=== PATIENT | male | born 1945 | race Caucasian/White ===

== ENCOUNTER 2022-02-28 10:30 | Outpatient (RCR) | payer MEDICARE, BC, SELFPAY | END 2022-08-25 23:59 | disposition home or self-care (01) | PROVIDERS: Visit Provider Internal Medicine | DX: M43.16 Spondylolisthesis, lumbar region (principal); Z51.89 Encounter for other specified aftercare | CPT/HCPCS: 97110; 97162 ==

== ENCOUNTER 2022-11-30 14:33 | Outpatient (CLI) | payer MEDICARE, BC, SELFPAY | END 2022-11-30 14:34 | disposition home or self-care (01) | LOC: AMB 12-05 10:24 | PROVIDERS: Visit Provider Family Medicine | DX: S79.911A Unspecified injury of right hip, initial encounter (principal); W18.30XA Fall on same level, unspecified, initial encounter; Y92.094 Garage of other non-institutional residence as the place of occurrence of the external cause | CPT/HCPCS: A0425; A0427 ==

== ENCOUNTER 2022-11-30 20:35 | Inpatient (IN) | payer MEDICARE, BC, SELFPAY ==
[2022-11-30 01:33] VITALS: PULSE 61
[2022-11-30 20:30] VITALS: BP 112/70; PULSE 66; RESP 18; TEMP 37.9; O2SAT 92; BMI 34.0
--- NOTE | 2022-11-30 21:59 | P.IMHP_ITS ---
Hospitalist- H&P: DRAYL History of Present Illness Date Seen: 11/30/22 Chief complaint: Femur fracture Narrative: Juan Mayers is a 77 year old male with history of heart failure, CLL, esophageal cancer, atrial fibrillation, pulmonary embolism, GI bleed, splenectomy, sleep apnea, chronic back pain, chronic anticoagulation, stage 3 kidney disease, obesity who fell and injured his right hip. He presented to his local emergency department in [place] where he was diagnosed with a right intertrochanteric hip fracture. He has some impaired mobility. A year ago he was wheelchair-bound. Over the past year he has advanced from wheelchair to walking with a walker and today was walking with a cane. Transferred here because the lack of beds in that hospital. He reports no significant injuries other than his right hip fracture. He reports no recent illness. He reports his chronic medical problems are stable. Review of Systems Narrative: He reports no fever, cough, shortness of breath, chest pain, abdominal pain, nausea, vomiting, bowel or bladder problems. [facility] Medical History (Updated 11/30/22 @ 22:36 by Roberto Luque MD) Delirium ?R41.0 - Disorientation, unspecified (ICD-10) DVT (deep venous thrombosis) ?I82.409 - Acute embolism and thrombosis of unspecified deep veins of unspecified lower extremity (ICD-10) Smoking ?F17.200 - Nicotine dependence, unspecified, uncomplicated (ICD-10) Splenic vein thrombosis ?I82.890 - Acute embolism and thrombosis of other specified veins (ICD-10) Portal vein thrombosis ?I81 - Portal vein thrombosis (ICD-10) Chronic anticoagulation ?Z79.01 - [facility] (current) use of anticoagulants (ICD-10) Gout ?M10.9 - Gout, unspecified (ICD-10) Obstructive sleep apnea ?G47.33 - Obstructive sleep apnea (adult) (pediatric) (ICD-10) Peripheral neuropathy ?G62.9 - Polyneuropathy, unspecified (ICD-10) Chronic acquired lymphedema ?I89.0 - Lymphedema, not elsewhere classified (ICD-10) Right bundle branch block ?I45.10 - Unspecified right bundle-branch block (ICD-10) Pulmonary embolism ?I26.99 - Other pulmonary embolism without acute cor pulmonale (ICD-10) Interstitial lung disease ?J84.9 - Interstitial pulmonary disease, unspecified (ICD-10) History of thyroid nodule ?Z86.39 - Personal history of other endocrine, nutritional and metabolic disease (ICD-10) Impaired mobility ?Z74.09 - Other reduced mobility (ICD-10) At risk for falls ?Z91.81 - History of falling (ICD-10) Chronic low back pain ?M54.50 - Low back pain, unspecified (ICD-10) ?G89.29 - Other chronic pain (ICD-10) Gastrointestinal bleeding, upper ?K92.2 - Gastrointestinal hemorrhage, unspecified (ICD-10) Diabetes mellitus ?E11.9 - Type 2 diabetes mellitus without complications (ICD-10) Anxiety ?F41.9 - Anxiety disorder, unspecified (ICD-10) Obesity ?E66.9 - Obesity, unspecified (ICD-10) Heart failure with reduced ejection fraction ?I50.20 - Unspecified systolic (congestive) heart failure (ICD-10) Pulmonary hypertension ?I27.20 - Pulmonary hypertension, unspecified (ICD-10) Esophageal cancer ?C15.9 - Malignant neoplasm of esophagus, unspecified (ICD-10) CLL (chronic lymphocytic leukemia) ?C91.10 - Chronic lymphocytic leukemia of B-cell type not having achieved remission (ICD-10) Abdominal aortic aneurysm ?I71.40 - Abdominal aortic aneurysm, without rupture, unspecified (ICD-10) Paroxysmal atrial fibrillation ?I48.0 - Paroxysmal atrial fibrillation (ICD-10) Stage 3 chronic kidney disease ?N18.30 - Chronic kidney disease, stage 3 unspecified (ICD-10) Surgical History (Updated 11/30/22 @ 22:21 by Roberto Luque MD) History of cholecystectomy ?Z90.49 - Acquired absence of other specified parts of digestive tract (ICD- 10) History of ventral hernia repair ?Z98.890 - Other specified postprocedural states (ICD-10) ?Z87.19 - Personal history of other diseases of the digestive system (ICD-10) History of splenectomy ?Z90.81 - Acquired absence of spleen (ICD-10) History of permanent cardiac pacemaker placement ?Z95.0 - Presence of cardiac pacemaker (ICD-10) Family History (Updated 11/30/22 @ 22:23 by Roberto Luque MD) Brother Leukemia Social History (Updated 11/30/22 @ 22:25 by Roberto Luque MD) Narrative: Leonardo lives with his significant other, Freda, in their own home on [address] near [facility]. Freda is healthcare power of environmental attorney and manages hole of his medications. Son Patrice is also healthcare power of environmental attorney. Code status is DNR. I year ago he was wheelchair-bound. He has advanced walking with a walker and now walking with a cane more recently. He smokes about a pack of cigarettes per week. He drinks a half glass of wine and a beer per day. He uses home BiPAP which his has brought in for him. He plans to go to [place] for the winter. He gets his medical care through the [facility] What is your current living situation?: I presently have a place to live Problems where you live: no known problems Problems where you live details: None In the past 12 months, utilities in danger of being shut off: no In past 12 months, lack of transportation kept you from medical appts, meetings, work, or getting things needed for daily living: no In the past 12 mos, have been you worried that your food would run out before you had money to buy more?: never true In the past 12 mos, the food you bought just didn't last and you didn't have money to buy more?: never true Highest level of school completed/degree received: Bachelor's degree Smoking Status: Current every day smoker What tobacco products do you use: cigarettes Smoking quit date/years: <= 15 years ago Nicotine containing products detail: 1 pack/week How often do you have a drink containing alcohol: 4 or more times a week Alcohol type: beer and wine Alcohol type details: half a glass of wine daily, beer How many standard drinks containing alcohol do you have on a typical day: 1 or 2 How often do you have six or more drinks on one occasion: Never AUDIT-C Alcohol total score: 4 Non-prescribed substance use: denies use Caffeine: Yes (coffee) How often does anyone, including family, friends and others, physically hurt you : never How often does anyone, including family, friends and others, insult or talk down to you: never How often does anyone, including family, friends and others, threaten you with harm: never How often does anyone, including family, friends and others, scream or curse at you: never service: No Meds Home Medications and Allergies Home Medications Medication Instructions Recorded Confirmed Type allopurinol 100 mg tablet 300 mg PO DAILY 11/30/22 11/30/22 History apixaban 5 mg tablet (Eliquis) 5 mg PO BID 11/30/22 11/30/22 History baclofen 20 mg tablet 20 mg PO 3XD PRN 11/30/22 11/30/22 History empagliflozin 10 mg tablet 10 mg PO QAM 11/30/22 11/30/22 History (Jardiance) esomeprazole magnesium 40 mg 40 mg PO BID 11/30/22 11/30/22 History capsule,delayed release famotidine 40 mg tablet 40 mg PO QPM 11/30/22 11/30/22 History fluticasone propionate 50 2 spray intranasal DAILY 11/30/22 11/30/22 History mcg/actuation nasal spray,suspension gabapentin 300 mg capsule 600 mg PO 3XD 11/30/22 11/30/22 History lorazepam 0.5 mg tablet 0.5 mg PO BID PRN anxiety 11/30/22 11/30/22 History metolazone 10 mg tablet 5 mg PO DAILY 11/30/22 11/30/22 History nystatin 100,000 unit/gram topical 1 applic topical 3XD PRN 11/30/22 11/30/22 History powder (Nyamyc) potassium chloride 40 mEq/15 mL 50.1333 meq PO QID 11/30/22 11/30/22 History oral liquid sertraline 100 mg tablet 150 mg PO DAILY 11/30/22 11/30/22 History spironolactone 25 mg tablet 37.5 mg PO BID 11/30/22 11/30/22 History torsemide 20 mg tablet 60 mg PO 3XD 11/30/22 11/30/22 History trazodone 50 mg tablet 100 mg PO QPM 11/30/22 11/30/22 History Allergies Allergy/AdvReac Type Severity Reaction Status Date / Time No Known Drug Allergies Allergy Verified 11/30/22 21:59 Exam Narrative: Exam Narrative: He is alert and appears in no distress. He gives his own history. Eyes are normal. Oropharynx normal. Neck is supple without mass or adenopathy. No jugular venous distension. No stridor. Respirations are clear to auscultation. Breathing is unlabored. Cardiovascular: S1, S2, relatively regular rhythm. Distant heart sounds. No obvious murmur gallop or rub. Abdomen: Bowel sounds are active. Abdomen is soft without tenderness. He has a vertical midline incision which appears to have a incisional hernia. He has a horizontal low abdominal incision which is also well healed and appears to have small bumps which the patient tells me are antibiotic beads implanted there. External genitalia normal. Jin catheter in place draining a clear yellow urine. Upper extremities move normally. Lower extremities with moderate edema bilaterally. He has moderate swelling around his right hip. He has intact pedal pulses. Assessment and Plan Assessment and plan (1) Intertrochanteric fracture of right femur: Problem comment: Pending surgical consultation. Patient's last dose of apixaban was the morning of November 30. Status: Acute (2) Heart failure with reduced ejection fraction: Problem comment: History of systolic failure. Echocardiogram from 09/14/2022, [place], shows ejection fraction of 56%, right-sided heart pressure of 38 mmHg, severely enlarged left atrium, mild aortic regurgitation and no other significant valvular disease. Continue high dose of diuretics and monitor closely. Status: Acute (3) Obesity: Problem comment: Significant weight loss from previous BMI of greater than 40. Status: Acute (4) Gastrointestinal bleeding, upper: Problem comment: History of GI bleeding about December 2020. Had normal colonoscopy. Diagnosed with esophageal cancer. Briefly off warfarin and developed a PE. Restarted apixaban Status: Acute (5) Pulmonary embolism: Problem comment: Developed pulmonary embolism and DVT when he was taken off warfarin for a GI bleed about December 2020. Lifelong anticoagulation recommended. Consider prophylactic Lovenox as bridge to surgery, 30 mg subQ q.12 hours and hold 24 hours before surgery. Status: Acute (6) Impaired mobility: Problem comment: Was wheelchair-bound in 2021, and over the past 10 months has advanced to walking with a walker and now with a cane. Status: Acute (7) Chronic acquired lymphedema: Problem comment: Support hose and pneumatic compression Status: Acute (8) Obstructive sleep apnea: Problem comment: Continue home BiPAP Status: Acute (9) Chronic anticoagulation: Problem comment: For atrial fibrillation and history of pulmonary embolism and DVT. Stop apixaban. Consider enoxaparin 30 mg subcutaneously q.12 hours as a bridge to surgery. Hold for 24 hours before surgery. Status: Acute (10) CLL (chronic lymphocytic leukemia): Problem comment: Not receiving treatment Status: Acute (11) Paroxysmal atrial fibrillation: Problem comment: On anticoagulation with apixaban Status: Acute (12) Stage 3 chronic kidney disease: Status: Acute (13) At risk for falls: Status: Acute (14) Chronic low back pain: Problem comment: He is treated with nerve ablation treatments periodically. Also baclofen Status: Acute (15) Delirium: Problem comment: Patient reports acute confusion associated with oxycodone. Possibly represents underlying cognitive impairment plus acute illness plus opioid effect. Status: Acute Plan Patient is admitted to the hospital for perioperative management of multiple medical problems outlined above. Total time spent today is 90 minutes, 60 minutes in coordination of care and discussing with patient and other providers ongoing evaluation management of anticoagulation, bleeding and clotting, heart failure, pain
[2022-11-30] MEDS: SENNOSIDES/DOCUSATE TABLET PO (22:36)
[2022-11-30] MEDS: TORSEMIDE 20 MG TABLET 60 MG PO (22:36)
[2022-11-30] MEDS: LORazepam 0.5 MG TABLET PO (22:37)
[2022-11-30] MEDS: TRAZODONE HCL 50 MG TABLET 100 MG PO (22:37)
[2022-11-30] MEDS: BACLOFEN 10 MG TABLET 20 MG PO (22:38)
[2022-11-30] MEDS: ONDANSETRON 2 MG/ML inj 4 MG IVP (22:39)
[2022-11-30] MEDS: HYDROmorphone 0.5 mg/0.5 ml inj IVP (22:49)
--- NOTE | 2022-11-30 22:55 | CRLHL7_ITS ---
For Patients: As a result of the Cures Act, medical imaging exams and procedure reports are released immediately into your electronic medical record. You may view this report before your referring provider. If you have questions, please contact your health care provider. Indication: Preop hip fracture, heart failure Technique: Chest 1 view Comparison: None Findings/Impression: Normal cardiac size. Masslike density in the right infrahilar region. Recommend chest CT for further evaluation. Normal pulmonary vasculature. No effusion or pneumothorax. No acute osseous abnormality. Dictated by Clare Millard MD @ 12/01/2022 12:47:08 AM (Electronically Signed)
[2022-11-30 23:00] VITALS: BP 101/67; PULSE 66; RESP 18; TEMP 37.1; O2SAT 89
[2022-11-30 23:48] LABS: Appearance Urine Clear (Clear); Bilirubin Urine Negative (Negative); Blood Urine 2+ (Negative); Color Urine Yellow (Yellow); Glucose Urine 1+ (Negative); Ketones Urine Negative (Negative); Leukocyte Esterase Urine Trace (Negative); Nitrite Urine Negative (Negative); Protein Urine Negative (Negative); Specific Gravity Urine 1.015 (1.000-1.030); Urobilinogen Urine 0.2 (0.2-1.0)
[2022-11-30] MEDS: GABAPENTIN 300 MG CAPSULE 600 MG PO (23:51)
[2022-12-01] VITALS (8 sets, daily range): BP systolic 92–111; BP diastolic 59–68; PULSE 61–76; RESP 12–18; TEMP 36.4–36.8; O2SAT 88–92
[2022-12-01 00:30] LABS: Bacteria Urine Few; Squamous Epithelial Cell Urine Few (None-Few); WBC Urine 0-2 (0-5)
[2022-12-01] MEDS: cefTRIAXone 1 GM in 0.9 % SODIUM CHLORIDE Mini-bag 100 ML IVPB (01:13)
[2022-12-01] MEDS: HYDROmorphone 2 MG TABLET PO ×6 (01:14→16:33)
[2022-12-01] MEDS: DOXYCYCLINE HYCLATE 100 MG PO ×3 (01:14→21:28)
[2022-12-01] MEDS: 0.9 % SODIUM CHLORIDE 250 ml IV (01:17)
[2022-12-01 01:59] LABS: Basophils Percent Auto 0.1 % (0.0-3.0); Hematocrit 49.7 % (37.0-53.0); Hemoglobin* 15.6 gm/dL (13.5-17.5); Immature Granulocytes Pct Auto 0.2 %; Lymphocytes Percent Auto 84.3 % (20-44); Mean Corpuscular HGB Conc 31 gm/dL (32-36); Mean Corpuscular Hemoglobin 35 pg (26-34); Mean Corpuscular Volume 110 fL (80-100); Monocytes Percent Auto 3.6 % (0.0-11.0); Neutrophils Percent Auto 11.8 % (42.0-72.0); Platelet Count* 174 K/uL (140-440); RDW Coefficient of Variation % 15.3 % (11.5-15.5)
[2022-12-01 02:15] LABS: Chloride* 94 mmol/L (96-114); Sodium* 137 mmol/L (135-149)
[2022-12-01 02:18] LABS: Creatinine* 1.3 mg/dL (0.5-1.5); Est. Creatinine Clearance* 52.99; Estimated Glomerular Filt Rate 56 ml/min
[2022-12-01 02:19] LABS: Anion Gap 8 mEq/L (7-15); Blood Urea Nitrogen* 60 mg/dL (7-30); Calcium* 9.5 mg/dL (8.4-10.6); Carbon Dioxide* 35 mmol/L (20-32); Glucose* 159 mg/dL (60-115); Magnesium* 2.7 mg/dL (1.5-2.6)
[2022-12-01 02:20] LABS: Hemoglobin A1C* 5.7 % (0-5.6)
[2022-12-01 02:24] LABS: White Blood Count* 70.51 K/uL (4.50-11.00)
[2022-12-01 02:25] LABS: Slide Review Reflex Yes
[2022-12-01 02:26] LABS: Slide Review Acceptable Review (Acceptable)
[2022-12-01 02:27] LABS: Potassium* 2.9 mmol/L (3.6-5.1)
[2022-12-01 02:32] LABS: Troponin I* 0.02 ng/mL (0.01-0.04)
[2022-12-01 02:35] LABS: Procalcitonin* 0.16 ng/mL (<0.50)
[2022-12-01 02:36] LABS: NT Pro B Type NatriureticPept* 925 pg/mL
[2022-12-01] MEDS: POTASSIUM CHLORIDE 10 MEQ/100 ML PIGGYBACK 100 MEQ IVPB ×4 (04:13→09:22)
--- NOTE | 2022-12-01 05:33 | PC.NURSE ---
Pt slept on and off during night, easily awoken when nurse walks in to check on pt. pain controlled with prn pain medication, constantly rates pain 8/10, he appears comfortable. requires 2 lpm O2 to maintain sats around 90%. Ice to R hip, pedal pulses present bilaterally. repositioned patient slightly as tolerated due to severe increased pain with movement. gee patent and draining. pt denies chest pain, sob, headache, lightheaded or dizziness. No N/V.
[2022-12-01] MEDS: OMEPRAZOLE 20 MG CAPSULE DR 40 MG PO ×2 (06:14→16:32)
[2022-12-01] MEDS: allopurinoL 100 MG TABLET 300 MG PO (07:59)
[2022-12-01] MEDS: GABAPENTIN 300 MG CAPSULE 600 MG PO ×3 (08:00→21:28)
[2022-12-01] MEDS: polyethylene glycoL 3350 17 GM PACK PO (08:01)
[2022-12-01] MEDS: SERTRALINE 100 MG TABLET 150 MG PO (08:01)
[2022-12-01] MEDS: TORSEMIDE 20 MG TABLET 60 MG PO (08:03)
[2022-12-01] MEDS: EMPAGLIFLOZIN 10 MG TABLET PO (09:19)
[2022-12-01] MEDS: POTASSIUM BICARB 25 MEQ EFFERVESCENT TAB 50 MEQ PO ×5 (09:19→21:27)
[2022-12-01] MEDS: SENNOSIDES/DOCUSATE TABLET 2 TAB PO ×2 (09:20→21:28)
[2022-12-01] MEDS: SPIRONOLACTONE 25 MG TABLET 37.5 MG PO ×2 (09:21→21:27)
--- NOTE | 2022-12-01 09:51 | PC.NURSE ---
PAIN NOTE: PATIENT C/O 9/10 R HIP AND LOWER BACK PAIN THIS MORNING WITH PRN DILAUDID 2 MG ADMINISTERED BEFORE REPOSITIONING. PATIENT REPORTED PAIN 10/10 UPON FOLLOWUP THOUGH APPEARS TO BE TOLERATING PAIN WITH CURRENT BEDREST AND REPOSITIONING. [employer] DID OFFER ICE AND PRN TYLENOL THOUGH PATIENT DECLINED THESE INTERVENTIONS. PATIENT AWARE HE IS SCHEDULED FOR SURGERY AT 1100 TOMORROW.
--- NOTE | 2022-12-01 10:14 | PM.IMPN1 ---
Progress Note: A&P Assessment and plan (1) Intertrochanteric fracture of right femur: Problem details: - Pending surgical consultation. Patient's last dose of apixaban was the morning of November 30. - Anticipate possible orthopedic surgery as early as morning of 12/02/22. NPO after midnight per Orthopedic surgery, and other pre surgical interventions and assessments per Orthopedic surgery. Status: Acute (2) Heart failure with reduced ejection fraction: Problem details: - History of systolic failure. Echocardiogram from 09/14/2022, [place], shows ejection fraction of 56%, right-sided heart pressure of 38 mmHg, severely enlarged left atrium, mild aortic regurgitation and no other significant valvular disease. - ordinarily on high dose of diuretics and monitor closely: Torsemide 60 mg 3 times daily, spironolactone 37.5 mg 2 times daily, metolazone 5 mg once daily. - I change the torsemide 80 mg twice daily, continued with the spironolactone dose as presently on, and held the metolazone here in the hospital. - ordinarily requires high-dose potassium supplementation, normally 40 mEq 5 times daily; I have changed it to 50 mEq 4 times daily. Today I will give an extra 50 mEq dose. Status: Acute (3) Obesity: Problem details: Significant weight loss from previous BMI of greater than 40. Current BMI 33.7. Status: Acute (4) Gastrointestinal bleeding, upper: Problem details: History of GI bleeding about December 2020. Had normal colonoscopy. Diagnosed with esophageal cancer. Briefly off warfarin and developed a PE. Restarted apixaban. Status: Acute (5) Pulmonary embolism: Problem details: Developed pulmonary embolism and DVT when he was taken off warfarin for a GI bleed about December 2020. Lifelong anticoagulation recommended. Status: Acute (6) Impaired mobility: Problem details: Was wheelchair-bound in 2021, and over the past 10 months has advanced to walking with a walker and now with a cane. Status: Acute (7) Chronic acquired lymphedema: Problem details: Support hose and pneumatic compression Status: Acute (8) Obstructive sleep apnea: Problem details: Continue home BiPAP Status: Acute (9) Chronic anticoagulation: Problem details: For atrial fibrillation and history of pulmonary embolism and DVT. Stop apixaban. Anticipate surgery tomorrow morning, so will not initiate bridging enoxaparin therapy. Status: Acute (10) CLL (chronic lymphocytic leukemia): Problem details: Not receiving treatment, with total white blood cell count 70,000 on 11/30/2022. Status: Acute (11) Paroxysmal atrial fibrillation: Problem details: On anticoagulation with apixaban, last dose received was morning of 11/30/2022. On hold for surgery. Status: Acute (12) Stage 3 chronic kidney disease: Status: Acute (13) At risk for falls: Status: Acute (14) Chronic low back pain: Problem details: He is treated with nerve ablation treatments periodically. Also baclofen Status: Acute (15) Delirium: Problem details: Records indicate history of delerium. Possibly related to oxycodone with acute illness Status: Acute (16) Abnormal chest x-ray: Problem details: - 11/30/2022: Normal cardiac size. Masslike density in the right infrahilar region. Recommend chest CT for further evaluation. Normal pulmonary vasculature. No effusion or pneumothorax. No acute osseous abnormality. - Compared CXR to previous CT scan of chest 10/16/2021 with radiologist: chronic prominent pulmonary artery (mass in RLL of CXR) and chronic hilar adenopathy, R>L. No need to assess any further at this time. CXR consistent with previous CT scan of chest. Status: Acute (17) Fever: Problem details: - Tm 100.3? F 11/30/2022, afebrile since - no obvious source, aside from acute trauma, CLL - no pulmonary symptoms and retrospectively no obvious infiltrate on chest x-ray obtained on 11/30/2022 - negative urinalysis, urine culture negative to date - blood cultures negative to date - was started on empiric IV ceftriaxone and oral doxycycline after cultures obtained Status: Acute (18) Hypokalemia due to excessive renal loss of potassium: Problem details: -due to being on high-dose diuretics: Torsemide 60 mg 3 times daily, spironolactone 37.5 mg 2 times daily, metolazone 5 mg once daily - ordinarily on potassium 40 mEq 5 times daily; changed to 50 mg 4 times daily in-hospital, plus give extra dose of 50 mEq of potassium while in hospital, and additional IV potassium supplements while in hospital. - trach serum potassium level Status: Acute Plan 1. Reviewed impression with patient. Answered his questions. 2. Reviewed impression with his significant other, Freda, and answered her questions. 3. Discussed with Orthopedic surgery who indicate that they intend on bringing him back to the OR possibly as early as tomorrow. Time Spent With Patient Total time spent: 70 minutes Subjective Time Seen by Provider: 09:00 Date Seen: 12/01/22 Interval history: Hospital day 2. Feels a little better today. Not as weak. Pain sufficiently modified for now. Did not sleep much last night, mainly because of being in the hospital. Denies chest heaviness, pressure, tightness, or pain. Denies dyspnea at rest, paroxysmal nocturnal dyspnea, orthopnea. Denies cough. Denies syncope or near-syncope. Denies orthostasis, lightheadedness, vertigo. Denies palpitations or chest fluttering. No blood loss of any sort. No focal motor neurologic deficits. Notes tendency toward constipation. Exam Narrative: Exam Narrative: Appears comfortable and in no acute distress. Vision and hearing are adequate. Alert and oriented to self, place, time, situation. Friendly, articulate, cooperative. Cranial nerves 3-12 grossly normal. Moves all 4 extremities. No focal motor neurologic deficits. Neck is supple. Shotty head and neck lymphadenopathy. No JVD or hepatojugular reflux. No carotid bruits. Lungs are clear to auscultation without wheezing, rhonchi, or rales. No CVA tenderness. Heart tones with regular rhythm, normal S1-S2. Grade 2-3/6 systolic murmur loudest in right upper sternal border. Abdomen with active bowel sounds, soft, nontender. Bilateral lower extremity edema, chronic, not new. Const: Vital Signs, click to edit/add: Vital Signs - 24 hr 11/30/22 20:30 11/30/22 20:30 11/30/22 23:00 Temperature 100.3 F H Pulse Rate Pulse Rate [Pulse Oximeter] 66 66 Respiratory Rate 18 Blood Pressure [Le ft Arm] 112/70 Pulse Oximetry 92 Oxygen Delivery Me thod Nasal Cannula Nasal Cannula Oxygen Flow Rate 2 2 11/30/22 23:00 12/01/22 02:13 12/01/22 07:00 Temperature 98.8 F 98.0 F 97.6 F Pulse Rate Pulse Rate [Pulse Oximeter] 66 63 62 Respiratory Rate 18 18 18 Blood Pressure [Le ft Arm] 101/67 92/60 108/65 Pulse Oximetry 89 88 92 Oxygen Delivery Me thod CPAP CPAP CPAP Oxygen Flow Rate 2 12/01/22 07:00 12/01/22 09:33 Temperature Pulse Rate 71 Pulse Rate [Pulse Oximeter] Respiratory Rate 18 Blood Pressure [Le ft Arm] Pulse Oximetry 92 Oxygen Delivery Me thod CPAP Oxygen Flow Rate 2 Documenting provider has reviewed patient's vital signs: yes Labs Labs: Laboratory Results - last 24 hr 11/30/22 12/01/22 23:35 01:45 WBC 70.51 H* RBC 4.50 Hgb 15.6 Hct 49.7 MCV 110 H MCH 35 H MCHC 31 L RDW Coeff of [place] 15.3 Plt Count 174 Neut % (Auto) 11.8 L Lymph % (Auto) 84.3 H [place] % (Auto) 3.6 Eos % (Auto) 0.0 Baso % (Auto) 0.1 Neut # (Auto) 8.30 H Lymph # (Auto) 59.40 H [place] # (Auto) 2.50 H Eos # (Auto) 0.00 Baso # (Auto) 0.10 Abs Immat Gran (auto) 0.10 Imm/Tot Granulo (auto) 0.2 Diff Slide Review Acceptable Review Sodium 137 Potassium 2.9 L* Chloride 94 L Carbon Dioxide 35 H Anion Gap 8 BUN 60 H Creatinine 1.3 Estimated Creat Clear 52.99 Estimated GFR 56 Glucose 159 H Hemoglobin A1c 5.7 H Calcium 9.5 Magnesium 2.7 H Troponin I 0.02 NT-Pro-B Natriuret Pep 925 Procalcitonin 0.16 Urine Color Yellow Urine Appearance Clear Urine pH 7.0 Ur Specific [place] 1.015 Urine Protein Negative Urine Glucose (UA) 1+ A Urine Ketones Negative Urine Blood 2+ A Urine Nitrite Negative Urine Bilirubin Negative Urine Urobilinogen 0.2 Ur Leukocyte Esterase Trace A Urine RBC 2-5 A Urine WBC 0-2 Ur Squamous Epith Cells Few Urine Bacteria Few A
[2022-12-01] MEDS: BACLOFEN 10 MG TABLET 20 MG PO ×2 (10:26→17:24)
[2022-12-01] MEDS: SODIUM CHLORIDE 0.9 % (FLUSH) 10 ML SYRINGE 5 ML IVF ×2 (10:54→21:28)
--- NOTE | 2022-12-01 11:15 | CRLHL7_ITS ---
For Patients: As a result of the Century Cures Act, medical imaging exams and procedure reports are released immediately into your electronic medical record. You may view this report before your referring provider. If you have questions, please contact your health care provider. Indication: Hip pain Technique: Two views right femur Comparison: 11/30/2022 Findings: Right total knee arthroplasty hardware are intact. Displaced and comminuted intertrochanteric fracture of the right proximal femur again noted. Degenerative changes at the right hip joint. Multiple chronic densities superior to the patella. Impression: Comminuted and displaced intertrochanteric fracture of the right proximal femur again noted. Dictated by Anthony Donovan MD @ 12/01/2022 1:02:25 PM (Electronically Signed)
[2022-12-01] MEDS: SUCRALFATE 1 GM TABLET PO ×2 (12:43→16:33)
--- NOTE | 2022-12-01 13:19 | PC.NURSE ---
PATIENT HAS BEEN GIVEN THREE DOSES OF PRN DILAUDID THROUGHOUT THE SHIFT TODAY HE C/O 8/10 PAIN TO R HIP AND LOWER BACK WITH MOVEMENT/REPOSITIONING. LATERAL TRANSFER DEVICE LIFT SHEET HAS BEEN PUT UNDER PATIENT TO ASSIST WITH REPOSITIONING HE REMAINS ON BEDREST. HE REMAINS ON OXYGEN 2 LPM WITH O2 SAT OF 92%. PATIENT ALERT & ORIENTED X 4. LUNG SOUNDS HAVE BEEN CLEAR TO ALL LOBES BILATERALLY AND BOWEL SOUNDS ACTIVE X 4. PATIENT ABLE TO TAKE PILLS WHOLE WITH APPLESAUCE GIVEN WITH FIRST DOSE OF DILAUDID THIS AM TO PREVENT NAUSEA. PATIENT HAS REPEAT K+ DRAW SCHEDULED FOR THIS AFTERNOON AFTER RECEIVING POTASSIUM PO AND IV. SCDS AND BILATERAL FLAVIA STOCKINGS HAVE BEEN IN PLACE TO BILATERAL LOWER EXTREMITIES OTHER THAN WHEN REMOVED FOR 1 HOUR THIS MORNING. ROBLERO CATHETER REMAINS PATENT WITH PALE YELLOW URINARY OUTPUT. PATIENT WAS ABLE TO PROVIDE HIS OWN HYGIENE AND MITALI CARES AFTER SETUP ASSISTANCE. HE REFUSED TO CHANGE GOWN WHEN APPROACHED BY THIS BUSINESS OWNER/ENGINEER. CMS REMAINS INTACT TO BILATERAL LOWER EXTREMITIES. NO S/SX OF INFECTION OBSERVED AT IV INSERTION SITE TO L FOREARM. NO C/O N/V OR CP NOTED. PATIENT AND SIGNIFICANT OTHER ARE AWARE THAT HE IS SCHEDULED FOR SURGERY AT 1115 AND PATIENT IS AWARE THAT HE WILL BE NPO AFTER MIDNIGHT TONIGHT. PATIENT UPDATED THAT HE IS UNABLE TO HAVE NERVE BLOCK COMPLETED TODAY PER PA. PATIENT ABLE TO ASSIST WITH REPOSITIONING USING OVERHEAD TRAPEZE. VSS. PATIENT NOTED TO BE SLIGHTLY DIAPHORETIC THIS MORNING UPON WAKING THOUGH HE WAS AFEBRILE WITH TEMP OF 97.6 AND BLOOD GLUCOSE OF 100 WHEN ASSESSED. BLANKETS WERE THEN REMOVED TO ASSIST WITH COOLING. ICE PROVIDED TO R HIP TO ASSIST WITH PAIN CONTROL.
[2022-12-01] MEDS: TORSEMIDE 20 MG TABLET 80 MG PO (13:43)
[2022-12-01 15:33] LABS: Potassium* 3.8 mmol/L (3.6-5.1)
--- NOTE | 2022-12-01 16:56 | PC.NURSE ---
Patient continues to report pain to R hip and lower back- 3/10 at rest and 8/10 with movement. Pain continues to be treated with scheduled pain medications, rest, ice, repositioning and PRN Dilaudid. Staff continue to utilize lateral transfer device for repositioning in bed. Patient able to assist with overhead trapeze. SCDs and FLAVIA stockings remain in place to bilateral lower extremities for DVT prophylaxis- removed for 1 hour this shift per protocol. Patient's significant other has been present for most of the day today. Patient's K+ has improved to 3.8, patient updated. Lung sounds remain clear to all lobes bilaterally and bowel sounds active x 4. Jin catheter remains patent and draining good output due to patient's po fluid intake along with chronic diuretic use. Patient able to make his needs known.
[2022-12-01] MEDS: FAMOTIDINE 20 MG TABLET 40 MG PO (18:28)
--- NOTE | 2022-12-01 18:41 | PC.NURSE ---
Patient refused repositioning when approached at 1830 stating, Just let me sleep. He has been educated regarding the importance of repositioning along with risks. Costing Manager did offer PRN Lorazepam as significant other reported pt takes this medication in the evening though pt refused stating, No. I don't need that. I'm fine right now after explaining that this medication prescribed for anxiety. Patient was last repositioned at 1650. Will update oncoming RN.
[2022-12-01] MEDS: TRAZODONE HCL 50 MG TABLET 100 MG PO (21:28)
[2022-12-01] MEDS: ACETAMINOPHEN 325 MG TABLET 650 MG PO (21:28)
[2022-12-01] MEDS: FLUTICASONE PROPIONATE NASAL 2 SPRAY NOSTRIL-B (21:29)
[2022-12-01] MEDS: HYDROmorphone 0.5 mg/0.5 ml inj IVP (21:43)
[2022-12-01] MEDS: 0.9 % SODIUM CH + KCL 20 mEq/L 1,000 ML 75 ML IV (23:46)
[2022-12-02] VITALS (24 sets, daily range): BP systolic 97–114; BP diastolic 57–93; PULSE 60–86; RESP 14–18; TEMP 36.4–37.1; O2SAT 86–94
[2022-12-02] MEDS: cefTRIAXone 1 GM in 0.9 % SODIUM CHLORIDE Mini-bag 100 ML IVPB (01:13)
[2022-12-02] MEDS: LORazepam 0.5 MG TABLET PO (03:02)
--- NOTE | 2022-12-02 05:01 | PC.NURSE ---
[id number] Pt restless throughout shift. repositioned as tolerated, pt does not tolerate well due to increase in pain. tremors noted, charge nurse and md aware, no new orders given. Pt c/o hip and back pain. gee patent and draining. NPO since midnight. pedal pulses present, pt able to move R foot independently.
[2022-12-02] MEDS: HYDROmorphone 0.5 mg/0.5 ml inj IVP ×4 (05:34→23:48)
[2022-12-02 06:37] LABS: Basophils Percent Auto 0.1 % (0.0-3.0); Hematocrit 46.2 % (37.0-53.0); Hemoglobin* 14.7 gm/dL (13.5-17.5); Immature Granulocytes Pct Auto 0.4 %; Lymphocytes Percent Auto 80.7 % (20-44); Mean Corpuscular HGB Conc 32 gm/dL (32-36); Mean Corpuscular Hemoglobin 35 pg (26-34); Mean Corpuscular Volume 109 fL (80-100); Monocytes Percent Auto 4.7 % (0.0-11.0); Neutrophils Percent Auto 14.1 % (42.0-72.0); Platelet Count* 158 K/uL (140-440); Red Blood Count 4.23 m/uL (4.30-5.90)
[2022-12-02 06:38] LABS: Chloride* 91 mmol/L (96-114)
[2022-12-02 06:39] LABS: Potassium* 3.3 mmol/L (3.6-5.1); Sodium* 135 mmol/L (135-149)
[2022-12-02 06:41] LABS: Creatinine* 1.2 mg/dL (0.5-1.5); Est. Creatinine Clearance* 61.28; Estimated Glomerular Filt Rate 62 ml/min
[2022-12-02 06:42] LABS: Anion Gap 4 mEq/L (7-15); Blood Urea Nitrogen* 61 mg/dL (7-30); Calcium* 9.1 mg/dL (8.4-10.6); Carbon Dioxide* 40 mmol/L (20-32); Glucose* 149 mg/dL (60-115)
[2022-12-02 07:17] LABS: Slide Review Reflex Yes; White Blood Count* 72.93 K/uL (4.50-11.00)
[2022-12-02 07:18] LABS: Slide Review Acceptable Review (Acceptable)
[2022-12-02] MEDS: POTASSIUM CHLORIDE 10 MEQ/100 ML PIGGYBACK 100 MEQ IVPB ×4 (08:00→11:38)
[2022-12-02] MEDS: TORSEMIDE 20 MG TABLET 80 MG PO (09:07)
[2022-12-02] MEDS: SPIRONOLACTONE 25 MG TABLET 37.5 MG PO ×2 (09:09→23:39)
--- NOTE | 2022-12-02 10:05 | PC.SOCIAL ---
Discharge Planning: Met with patient and his friend, Freda in room. Freda states that she is his caregiver. They are hopeful that patient will be able to return home after surgery. Waiting to see what is recommended for patient. Social work to follow up as needed
--- NOTE | 2022-12-02 10:46 | P.IMPN_ITS ---
Progress Note: A&P Assessment and plan (1) Intertrochanteric fracture of right femur: Problem details: - Pending surgical consultation. Patient's last dose of apixaban was the morning of November 30. - Still anticipate possible orthopedic surgery as early as morning of 12/02/22. NPO after midnight per Orthopedic surgery, and other pre surgical interventions and assessments per Orthopedic surgery. - PT and OT will continue to support, assess, and treat. Status: Acute (2) Heart failure with reduced ejection fraction: Problem details: - History of systolic failure. Echocardiogram from 09/14/2022, [facility], shows ejection fraction of 56%, right-sided heart pressure of 38 mmHg, severely enlarged left atrium, mild aortic regurgitation and no other significant valvular disease. - ordinarily on high dose of diuretics and monitor closely: Torsemide 60 mg 3 times daily, spironolactone 37.5 mg 2 times daily, metolazone 5 mg once daily. - I change the torsemide 80 mg twice daily, continued with the spironolactone dose as presently on, and held the metolazone here in the hospital. - ordinarily requires high-dose potassium supplementation, normally 40 mEq 5 times daily; I have changed it to 50 mEq 4 times daily. I gave him an extra 50 mEq of K+ 12/01. On 12/02 I ordered and extra 40 mEq K+ IV. Status: Acute (3) Obesity: Problem details: Significant weight loss from previous BMI of greater than 40. Current BMI 33.7. Status: Acute (4) Gastrointestinal bleeding, upper: Problem details: History of GI bleeding about December 2020. Had normal colonoscopy. Diagnosed with esophageal cancer. Briefly off warfarin and developed a PE. Restarted apixaban. Status: Acute (5) Pulmonary embolism: Problem details: Developed pulmonary embolism and DVT when he was taken off warfarin for a GI bleed about December 2020. Lifelong anticoagulation recommended. Status: Acute (6) Impaired mobility: Problem details: Was wheelchair-bound in 2021, and over the past 10 months has advanced to walking with a walker and now with a cane. Status: Acute (7) Chronic acquired lymphedema: Problem details: Support hose and pneumatic compression Status: Acute (8) Obstructive sleep apnea: Problem details: Continue home BiPAP Status: Acute (9) Chronic anticoagulation: Problem details: For atrial fibrillation and history of pulmonary embolism and DVT. Stop apixaban. Anticipate surgery 12/02, thus did not initiate bridging enoxaparin therapy pre-op. Status: Acute (10) CLL (chronic lymphocytic leukemia): Problem details: Not receiving treatment, with total white blood cell count 70,000 on 11/30/2022, 73,000 on 12/02. Status: Acute (11) Paroxysmal atrial fibrillation: Problem details: On anticoagulation with apixaban, last dose received was morning of 11/30/2022. On hold for surgery. Status: Acute (12) Stage 3 chronic kidney disease: Status: Acute (13) At risk for falls: Status: Acute (14) Chronic low back pain: Problem details: He is treated with nerve ablation treatments periodically. Also baclofen Status: Acute (15) Delirium: Problem details: - Records indicate history of hospital associated delirium. - Noted to have delirium morning of 12/02/22 - continue with supportive efforts. - Reviewed with his significant other, Freda. She understands and is supportive. - Continue with supportive efforts - no need for additional pharmacological support at this time - Will work with outreach and education social worker to establish safe discharge disposition plan Status: Acute (16) Abnormal chest x-ray: Problem details: - 11/30/2022: Normal cardiac size. Masslike density in the right infrahilar region. Recommend chest CT for further evaluation. Normal pulmonary vasculature. No effusion or pneumothorax. No acute osseous abnormality. - Compared CXR to previous CT scan of chest 10/16/2021 with radiologist: chronic prominent pulmonary artery (mass in RLL of CXR) and chronic hilar adenopathy, R>L. No need to assess any further at this time. CXR consistent with previous CT scan of chest. Status: Acute (17) Fever: Problem details: - Tm 100.3? F 11/30/2022, afebrile since - no obvious source, aside from acute trauma, CLL - no pulmonary symptoms and retrospectively no obvious infiltrate on chest x-ray obtained on 11/30/2022 - negative urinalysis, urine culture negative to date - blood cultures negative to date - was started on empiric IV ceftriaxone and oral doxycycline after cultures obtained Status: Acute (18) Hypokalemia due to excessive renal loss of potassium: Problem details: -due to being on high-dose diuretics: Torsemide 60 mg 3 times daily, spironolactone 37.5 mg 2 times daily, metolazone 5 mg once daily - ordinarily on potassium 40 mEq 5 times daily; 12/01 changed to 50 mg 4 times daily in-hospital, plus gave extra dose of 50 mEq of potassium orally, and additional IV potassium supplements. - monitor serum potassium level - 12/02 K+ level low at 3.3, thus ordered additional IV K+ Status: Acute Plan 1. Reviewed above with patient and his significant other, Freda. Answered their questions. 2. Await orthopedic surgical consultation and possible surgery later today. 3. Continue with plan as specified above and adjust as warranted. 4. Will recheck serum potassium level later this afternoon after he is back from the operating room. Time Spent With Patient Total time spent: 60 minutes Subjective Time Seen by Provider: 09:00 Date Seen: 12/02/22 Interval history: Hospital day 3. More confused today. He struggles to stay on task with conversation. Able to tell me that his hip pain is sufficiently controlled for now as long as he is still, but pain increases with movement. Did not sleep much again last night. Denies chest heaviness, pressure, tightness, or pain. Denies dyspnea at rest, paroxysmal nocturnal dyspnea, orthopnea. Denies cough. Denies syncope or near- syncope. Denies orthostasis, lightheadedness, vertigo. Denies palpitations or chest fluttering. No overt blood loss of any sort. No focal motor neurologic deficits. Exam Narrative: Exam Narrative: I examine him in his hospital room. When I initially assess him earlier in the morning he is sound asleep with the CPAP on, in great measure laying supine. He appears comfortable. Later in the morning when I reassessed him he is awake, alert, oriented to self and only in part to place, time, and situation. Does remember things after we remind him. He attempts to engage in spontaneous conversation but is slow to respond and quickly forgets we are talking about. With reminders he is able to engage in conversation. Hearing and vision are adequate. No icterus or jaundice. No conjunctival injection. Pupils equally round and reactive to light and accommodation. Extraocular muscles intact. Conjugate gaze. Dentition in fair repair. Oropharynx with moist mucosa. Midline nasal septum. Neck is supple. Lungs are clear auscultation right now. Heart tones with regular rhythm, normal S1-S2. Abdomen with active bowel sounds, soft, nontender. Still has trace bilateral lower extremity edema. No focal motor neurologic deficits. Const: Vital Signs, click to edit/add: Vital Signs - 24 hr 12/01/22 11:00 12/01/22 15:00 12/01/22 15:00 Temperature 97.8 F 98.0 F Pulse Rate Pulse Rate [Pulse Oximeter] 71 76 Respiratory Rate 18 18 18 Blood Pressure [Le ft Arm] 109/65 100/59 L Pulse Oximetry 92 90 90 Oxygen Delivery Me thod Nasal Cannula Nasal Cannula Nasal Cannula Oxygen Flow Rate 2 2 12/01/22 19:00 12/01/22 22:53 12/01/22 22:53 Temperature 98.2 F Pulse Rate 68 Pulse Rate [Pulse Oximeter] 68 Respiratory Rate 18 12 Blood Pressure [Le ft Arm] 111/61 Pulse Oximetry 88 88 Oxygen Delivery Me thod Nasal Cannula CPAP Oxygen Flow Rate 2 2 12/01/22 22:53 12/02/22 03:00 12/02/22 07:33 Temperature 98.0 F 97.6 F Pulse Rate Pulse Rate [Pulse Oximeter] 63 86 Respiratory Rate 12 16 18 Blood Pressure [Le ft Arm] 106/68 111/93 H Pulse Oximetry 88 88 91 Oxygen Delivery Me thod CPAP CPAP CPAP Oxygen Flow Rate 2 2 2 12/02/22 07:34 12/02/22 09:44 Temperature 98.1 F Pulse Rate 68 Pulse Rate [Pulse Oximeter] 85 Respiratory Rate 18 Blood Pressure [Le ft Arm] 112/67 Pulse Oximetry 91 Oxygen Delivery Me thod CPAP Oxygen Flow Rate 2 Documenting provider has reviewed patient's vital signs: yes Labs Labs: Laboratory Results - last 24 hr 12/01/22 12/02/22 14:21 05:47 WBC 72.93 H* RBC 4.23 L Hgb 14.7 Hct 46.2 MCV 109 H MCH 35 H MCHC 32 RDW Coeff of [place] 15.0 Plt Count 158 Neut % (Auto) 14.1 L Lymph % (Auto) 80.7 H [place] % (Auto) 4.7 Eos % (Auto) 0.0 Baso % (Auto) 0.1 Neut # (Auto) 10.30 H Lymph # (Auto) 58.90 H [place] # (Auto) 3.40 H Eos # (Auto) 0.00 Baso # (Auto) 0.10 Abs Immat Gran (auto) 0.30 Imm/Tot Granulo (auto) 0.4 Diff Slide Review Acceptable Review Sodium 135 Potassium 3.8 3.3 L Chloride 91 L Carbon Dioxide 40 H Anion Gap 4 L BUN 61 H Creatinine 1.2 Estimated Creat Clear 61.28 Estimated GFR 62 Glucose 149 H Calcium 9.1 Imaging Right hip x-ray: Attestation: I have reviewed the pertinent imaging results. Radiologist's impression: Impression: Comminuted and displaced intertrochanteric fracture of the right proximal femur again noted. ECG Attestation: I personally reviewed and interpreted this ECG as follows: Interpretation: Ventricular paced rhythm.
--- NOTE | 2022-12-02 11:04 | W.ANESCHARGE ---
Anesthesia Charges Start Date/Time Anesthesia Start Date: 12/02/22 Stop Date/Time Anesthesia Stop Date: 12/02/22 Summary Extremes of Age - Over 70 or under 1: MDA
--- NOTE | 2022-12-02 11:45 | CRLHL7_ITS ---
For Patients: As a result of the Cures Act, medical imaging exams and procedure reports are released immediately into your electronic medical record. You may view this report before your referring provider. If you have questions, please contact your health care provider. Indication: RIGHT IM RODDING Technique: Five fluoroscopic images of the right femur. Fluoroscopic time 158.0 seconds. IMPRESSION: Fluoroscopic guidance for open reduction internal fixation proximal femoral fracture. Dictated by Anthony Donovan MD @ 12/03/2022 10:45:56 AM (Electronically Signed)
--- NOTE | 2022-12-02 12:18 | PC.NURSE ---
Patient prepped for surgery by preceptor RN and this assembly instructions writer. Family signed consent due to patient being unable. MD and anesthesia updated that patient seems more confused today compared to yesterday though this could be a result of current med regimen. When he took his two AM medications of Torsemide and Spironolactone this morning he looked at assembly instructions writer and asked, Did the pill go down? after assembly instructions writer had previously asked. VSS and patient has been afebrile.
--- NOTE | 2022-12-02 14:35 | PM.ORCN ---
History of Present Illness HPI Date Seen: 12/02/22 Chief complaint: Femur fracture Narrative: Juan is a 77 year old male with past medical history significant for heart failure, CLL, esophageal cancer, atrial fibrillation, pulmonary embolism, GI bleed, splenectomy, sleep apnea, chronic back pain, chronic anticoagulation, stage 3 kidney disease, and obesity. He was admitted 2 days ago for treatment of a right intertrochanteric hip fracture. Injury occurred when he fell in his garage. He was initially seen at emergency department in [place], but was transferred to [place] due to lack of beds in that facility. This morning, he is complaining of pain in his right hip. States pain is adequately controlled. Prior to this injury, he was walking with the assistance of a cane or walker in his home. [facility] Medical History (Updated 12/02/22 @ 14:47 by Marcos Barber MD) Constipation ?K59.00 - Constipation, unspecified (ICD-10) Delirium ?R41.0 - Disorientation, unspecified (ICD-10) DVT (deep venous thrombosis) ?I82.409 - Acute embolism and thrombosis of unspecified deep veins of unspecified lower extremity (ICD-10) Smoking ?F17.200 - Nicotine dependence, unspecified, uncomplicated (ICD-10) Splenic vein thrombosis ?I82.890 - Acute embolism and thrombosis of other specified veins (ICD-10) Portal vein thrombosis ?I81 - Portal vein thrombosis (ICD-10) Chronic anticoagulation ?Z79.01 - FDC (current) use of anticoagulants (ICD-10) Gout ?M10.9 - Gout, unspecified (ICD-10) Obstructive sleep apnea ?G47.33 - Obstructive sleep apnea (adult) (pediatric) (ICD-10) Peripheral neuropathy ?G62.9 - Polyneuropathy, unspecified (ICD-10) Chronic acquired lymphedema ?I89.0 - Lymphedema, not elsewhere classified (ICD-10) Right bundle branch block ?I45.10 - Unspecified right bundle-branch block (ICD-10) Pulmonary embolism ?I26.99 - Other pulmonary embolism without acute cor pulmonale (ICD-10) Interstitial lung disease ?J84.9 - Interstitial pulmonary disease, unspecified (ICD-10) History of thyroid nodule ?Z86.39 - Personal history of other endocrine, nutritional and metabolic disease (ICD-10) Impaired mobility ?Z74.09 - Other reduced mobility (ICD-10) At risk for falls ?Z91.81 - History of falling (ICD-10) Chronic low back pain ?M54.50 - Low back pain, unspecified (ICD-10) ?G89.29 - Other chronic pain (ICD-10) Gastrointestinal bleeding, upper ?K92.2 - Gastrointestinal hemorrhage, unspecified (ICD-10) Diabetes mellitus ?E11.9 - Type 2 diabetes mellitus without complications (ICD-10) Anxiety ?F41.9 - Anxiety disorder, unspecified (ICD-10) Obesity ?E66.9 - Obesity, unspecified (ICD-10) Heart failure with reduced ejection fraction ?I50.20 - Unspecified systolic (congestive) heart failure (ICD-10) Pulmonary hypertension ?I27.20 - Pulmonary hypertension, unspecified (ICD-10) Esophageal cancer ?C15.9 - Malignant neoplasm of esophagus, unspecified (ICD-10) CLL (chronic lymphocytic leukemia) ?C91.10 - Chronic lymphocytic leukemia of B-cell type not having achieved remission (ICD-10) Abdominal aortic aneurysm ?I71.40 - Abdominal aortic aneurysm, without rupture, unspecified (ICD-10) Paroxysmal atrial fibrillation ?I48.0 - Paroxysmal atrial fibrillation (ICD-10) Stage 3 chronic kidney disease ?N18.30 - Chronic kidney disease, stage 3 unspecified (ICD-10) Surgical History (Updated 11/30/22 @ 22:21 by Roberto Luque MD) History of cholecystectomy ?Z90.49 - Acquired absence of other specified parts of digestive tract (ICD-10) History of ventral hernia repair ?Z98.890 - Other specified postprocedural states (ICD-10) ?Z87.19 - Personal history of other diseases of the digestive system (ICD-10) History of splenectomy ?Z90.81 - Acquired absence of spleen (ICD-10) History of permanent cardiac pacemaker placement ?Z95.0 - Presence of cardiac pacemaker (ICD-10) Family History (Updated 11/30/22 @ 22:23 by Roberto Luque MD) Brother Leukemia Social History (Updated 11/30/22 @ 22:25 by Roberto Luque MD) Narrative: Leonardo lives with his significant other, Freda, in their own [address] on [address]. Freda is healthcare power of environmental attorney and manages hole of his medications. Son Patrice is also healthcare power of environmental attorney. Code status is DNR. I year ago he was wheelchair-bound. He has advanced walking with a walker and now walking with a cane more recently. He smokes about a pack of cigarettes per week. He drinks a half glass of wine and a beer per day. He uses home BiPAP which his has brought in for him. He plans to go to [place] for the winter. He gets his medical care through the [facility] What is your current living situation?: I presently have a place to live Problems where you live: no known problems Problems where you live details: None In the past 12 months, utilities in danger of being shut off: no In past 12 months, lack of transportation kept you from medical appts, meetings, work, or getting things needed for daily living: no In the past 12 mos, have been you worried that your food would run out before you had money to buy more?: never true In the past 12 mos, the food you bought just didn't last and you didn't have money to buy more?: never true Highest level of school completed/degree received: Bachelor's degree Smoking Status: Current every day smoker What tobacco products do you use: cigarettes Smoking quit date/years: <= 15 years ago Nicotine containing products detail: 1 pack/week How often do you have a drink containing alcohol: 4 or more times a week Alcohol type: beer and wine Alcohol type details: half a glass of wine daily, beer How many standard drinks containing alcohol do you have on a typical day: 1 or 2 How often do you have six or more drinks on one occasion: Never AUDIT-C Alcohol total score: 4 Non-prescribed substance use: denies use Caffeine: Yes (coffee) How often does anyone, including family, friends and others, physically hurt you: never How often does anyone, including family, friends and others, insult or talk down to you: never How often does anyone, including family, friends and others, threaten you with harm: never How often does anyone, including family, friends and others, scream or curse at you: never service: No Meds Home Medications and Allergies Home Medications Medication Instructions Recorded Confirmed Type allopurinol 100 mg tablet 100 mg PO TID@,1730,21 11/30/22 12/01/22 History apixaban 5 mg tablet (Eliquis) 5 mg PO BID@11/30/22 12/01/22 History baclofen 20 mg tablet 20 mg PO BID PRN 11/30/22 12/01/22 History empagliflozin 10 mg tablet 10 mg PO QAM 11/30/22 11/30/22 History (Jardiance) esomeprazole magnesium 40 mg 80 mg PO BID 11/30/22 12/01/22 History capsule,delayed release famotidine 40 mg tablet 40 mg PO HS 11/30/22 12/01/22 History fluticasone propionate 50 2 spray intranasal HS 11/30/22 12/01/22 History mcg/actuation nasal spray,suspension gabapentin 300 mg capsule 600 mg PO TID@,1729,11/30/22 12/01/22 History lorazepam 0.5 mg tablet 0.5 mg PO BID@1729, anxiety 11/30/22 12/01/22 History metolazone 10 mg tablet 5 mg PO DAILY 11/30/22 11/30/22 History nystatin 100,000 unit/gram topical 1 applic topical 3XD PRN 11/30/22 11/30/22 History powder (Nyamyc) potassium chloride 40 mEq/15 mL 40 meq PO 5XD 11/30/22 12/01/22 History oral liquid sertraline 100 mg tablet 150 mg PO DAILY 11/30/22 11/30/22 History spironolactone 25 mg tablet 37.5 mg PO BID@11/30/22 12/01/22 History torsemide 20 mg tablet 60 mg PO 3XD 11/30/22 11/30/22 History trazodone 50 mg tablet 50 - 100 mg PO HS 11/30/22 12/01/22 History acetaminophen 325 mg tablet 650 mg PO BID 12/01/22 12/01/22 History iron,carbonyl 65 mg-vitamin C 125 1 tab PO DAILY@1800 12/01/22 12/01/22 History mg tablet,delayed release (Vitron-C) oxycodone 5 mg tablet 2.5 - 5 mg PO Q6H PRN 12/01/22 12/01/22 History polyethylene glycol 3350 17 17 g PO DAILY 12/01/22 12/01/22 History gram/dose oral powder (Miralax) sucralfate 1 gram tablet 1 g PO AC 12/01/22 12/01/22 History tramadol 50 mg tablet 50 mg PO HS PRN 12/01/22 12/01/22 History triamcinolone acetonide 0.1 % 1 applic topical BID PRN 12/01/22 12/01/22 History topical ointment Allergies Allergy/AdvReac Type Severity Reaction Status Date / Time No Known Drug Allergies Allergy Verified 11/30/22 21:59 Ortho Exam Narrative Exam Narrative: General: Patient is alert but intermittently confused. Musculoskeletal: Right lower extremity was examined. Leg was noted to be in a shortened externally rotated position. Sensation was intact to light touch throughout the dorsal plantar aspects of the foot. EHL, tibialis anterior, gastrocnemius/soleus were intact. Foot was warm and well perfused with intact DP and PT pulses. Const Vital Signs, click to edit/add: Vital Signs - 24 hr 12/01/22 15:00 12/01/22 15:00 12/01/22 19:00 Temperature 98.0 F 98.2 F Pulse Rate Pulse Rate [Pulse Oximeter] 76 68 Respiratory Rate 18 18 18 Blood Pressure [Left Arm] 100/59 L 111/61 Blood Pressure [Right Arm] Pulse Oximetry 90 90 88 Oxygen Delivery Method Nasal Cannula Nasal Cannula Nasal Cannula Oxygen Flow Rate 2 2 12/01/22 22:53 12/01/22 22:53 12/01/22 22:53 Temperature 98.0 F Pulse Rate 68 Pulse Rate [Pulse Oximeter] 63 Respiratory Rate 12 12 Blood Pressure [Left Arm] 106/68 Blood Pressure [Right Arm] Pulse Oximetry 88 88 Oxygen Delivery Method CPAP CPAP Oxygen Flow Rate 2 2 12/02/22 03:00 12/02/22 07:33 12/02/22 07:34 Temperature 97.6 F 98.1 F Pulse Rate Pulse Rate [Pulse Oximeter] 86 85 Respiratory Rate 16 18 18 Blood Pressure [Left Arm] 111/93 H 112/67 Blood Pressure [Right Arm] Pulse Oximetry 88 91 91 Oxygen Delivery Method CPAP CPAP CPAP Oxygen Flow Rate 2 2 2 12/02/22 09:44 12/02/22 10:57 Temperature 98.0 F Pulse Rate 68 Pulse Rate [Pulse Oximeter] 60 Respiratory Rate Blood Pressure [Left Arm] Blood Pressure [Right Arm] 100/58 L Pulse Oximetry 93 Oxygen Delivery Method Nasal Cannula Oxygen Flow Rate Results Labs Labs: Laboratory Results - last 48 hr 11/30/22 12/01/22 12/01/22 23:35 01:45 14:21 WBC 70.51 H* RBC 4.50 Hgb 15.6 Hct 49.7 MCV 110 H MCH 35 H MCHC 31 L RDW Coeff of Casey 15.3 Plt Count 174 Neut % (Auto) 11.8 L Lymph % (Auto) 84.3 H [place] % (Auto) 3.6 Eos % (Auto) 0.0 Baso % (Auto) 0.1 Neut # (Auto) 8.30 H Lymph # (Auto) 59.40 H [place] # (Auto) 2.50 H Eos # (Auto) 0.00 Baso # (Auto) 0.10 Abs Immat Gran (auto) 0.10 Imm/Tot Granulo (auto) 0.2 Diff Slide Review Acceptable Review Sodium 137 Potassium 2.9 L* 3.8 Chloride 94 L Carbon Dioxide 35 H Anion Gap 8 BUN 60 H Creatinine 1.3 Estimated Creat Clear 52.99 Estimated GFR 56 Glucose 159 H Hemoglobin A1c 5.7 H Calcium 9.5 Magnesium 2.7 H Troponin I 0.02 NT-Pro-B Natriuret Pep 925 Procalcitonin 0.16 Urine Color Yellow Urine Appearance Clear Urine pH 7.0 Ur Specific [place] 1.015 Urine Protein Negative Urine Glucose (UA) 1+ A Urine Ketones Negative Urine Blood 2+ A Urine Nitrite Negative Urine Bilirubin Negative Urine Urobilinogen 0.2 Ur Leukocyte Esterase Trace A Urine RBC 2-5 A Urine WBC 0-2 Ur Squamous Epith Cells Few Urine Bacteria Few A 12/02/22 05:47 WBC 72.93 H* RBC 4.23 L Hgb 14.7 Hct 46.2 MCV 109 H MCH 35 H MCHC 32 RDW Coeff of [place] 15.0 Plt Count 158 Neut % (Auto) 14.1 L Lymph % (Auto) 80.7 H [place] % (Auto) 4.7 Eos % (Auto) 0.0 Baso % (Auto) 0.1 Neut # (Auto) 10.30 H Lymph # (Auto) 58.90 H [place] # (Auto) 3.40 H Eos # (Auto) 0.00 Baso # (Auto) 0.10 Abs Immat Gran (auto) 0.30 Imm/Tot Granulo (auto) 0.4 Diff Slide Review Acceptable Review Sodium 135 Potassium 3.3 L Chloride 91 L Carbon Dioxide 40 H Anion Gap 4 L BUN 61 H Creatinine 1.2 Estimated Creat Clear 61.28 Estimated GFR 62 Glucose 149 H Hemoglobin A1c Calcium 9.1 Magnesium Troponin I NT-Pro-B Natriuret Pep Procalcitonin Urine Color Urine Appearance Urine pH Ur Specific [place] Urine Protein Urine Glucose (UA) Urine Ketones Urine Blood Urine Nitrite Urine Bilirubin Urine Urobilinogen Ur Leukocyte Esterase Urine RBC Urine WBC Ur Squamous Epith Cells Urine Bacteria Diagnostic results Additional Comments: X-rays of the right hip performed at outside facility and x-rays of right femur performed earlier today reviewed. These are significant for a comminuted, displaced, intertrochanteric right hip fracture. Total knee arthroplasty hardware is in place with no evidence of loosening or other complications. Assessment and Plan Assessment and plan (1) Intertrochanteric fracture of right femur: Status: Acute Assessment and Plan: Patient is displaced right intertrochanteric hip fracture. Operative and non operative treatment options were discussed with patient's son and his significant other, who are his power of environmental attorney. Recommendations made for right hip surgical stabilization with a cephalomedullary nail to allow for more anatomic healing and early ambulation. Risks of surgery include but are not limited to infection, neurovascular injury, malunion, nonunion, failure of hardware, DVT, heart attack, stroke, and even . After discussion, they were in agreement with plan to proceed with surgery, which will likely take place later today. Patient has been NPO since midnight and has been medically optimized for surgery.. Total time spent: Total time spent is greater than 50% in coordination of care (as documented) at patient's floor/unit and/or counseling patient: (2) Heart failure with reduced ejection fraction: Problem comment: - History of systolic failure. Echocardiogram from 09/14/2022, [place], shows ejection fraction of 56%, right-sided heart pressure of 38 mmHg, severely enlarged left atrium, mild aortic regurgitation and no other significant valvular disease. - ordinarily on high dose of diuretics and monitor closely: Torsemide 60 mg 3 times daily, spironolactone 37.5 mg 2 times daily, metolazone 5 mg once daily. - I change the torsemide 80 mg twice daily, continued with the spironolactone dose as presently on, and held the metolazone here in the hospital. - ordinarily requires high-dose potassium supplementation, normally 40 mEq 5 times daily; I have changed it to 50 mEq 4 times daily. I gave him an extra 50 mEq of K+ 12/01. On 12/02 I ordered and extra 40 mEq K+ IV. Status: Acute Total time spent: Total time spent is greater than 50% in coordination of care (as documented) at patient's floor/unit and/or counseling patient: (3) Obesity: Problem comment: Significant weight loss from previous BMI of greater than 40. Current BMI 33.7. Status: Acute Total time spent: Total time spent is greater than 50% in coordination of care (as documented) at patient's floor/unit and/or counseling patient: (4) Gastrointestinal bleeding, upper: Problem comment: History of GI bleeding about December 2020. Had normal colonoscopy. Diagnosed with esophageal cancer. Briefly off warfarin and developed a PE. Restarted apixaban. Status: Acute Total time spent: Total time spent is greater than 50% in coordination of care (as documented) at patient's floor/unit and/or counseling patient: (5) Pulmonary embolism: Problem comment: Developed pulmonary embolism and DVT when he was taken off warfarin for a GI bleed about December 2020. Lifelong anticoagulation recommended. Status: Acute Total time spent: Total time spent is greater than 50% in coordination of care (as documented) at patient's floor/unit and/or counseling patient: (6) Impaired mobility: Problem comment: Was wheelchair-bound in 2021, and over the past 10 months has advanced to walking with a walker and now with a cane. Status: Acute Total time spent: Total time spent is greater than 50% in coordination of care (as documented) at patient's floor/unit and/or counseling patient: (7) Chronic acquired lymphedema: Problem comment: Support hose and pneumatic compression Status: Acute Total time spent: Total time spent is greater than 50% in coordination of care (as documented) at patient's floor/unit and/or counseling patient: (8) Obstructive sleep apnea: Problem comment: Continue home BiPAP Status: Acute Total time spent: Total time spent is greater than 50% in coordination of care (as documented) at patient's floor/unit and/or counseling patient: (9) Chronic anticoagulation: Problem comment: For atrial fibrillation and history of pulmonary embolism and DVT. Stop apixaban. Anticipate surgery 12/02, thus did not initiate bridging enoxaparin therapy pre-op. Status: Acute Total time spent: Total time spent is greater than 50% in coordination of care (as documented) at patient's floor/unit and/or counseling patient: (10) CLL (chronic lymphocytic leukemia): Problem comment: Not receiving treatment, with total white blood cell count 70,000 on 11/30/2022, 73,000 on 12/02. Status: Acute Total time spent: Total time spent is greater than 50% in coordination of care (as documented) at patient's floor/unit and/or counseling patient: (11) Paroxysmal atrial fibrillation: Problem comment: On anticoagulation with apixaban, last dose received was morning of 11/30/2022. On hold for surgery. Status: Acute Total time spent: Total time spent is greater than 50% in coordination of care (as documented) at patient's floor/unit and/or counseling patient: (12) Stage 3 chronic kidney disease: Status: Acute Total time spent: Total time spent is greater than 50% in coordination of care (as documented) at patient's floor/unit and/or counseling patient: (13) At risk for falls: Status: Acute Total time spent: Total time spent is greater than 50% in coordination of care (as documented) at patient's floor/unit and/or counseling patient: (14) Chronic low back pain: Problem comment: He is treated with nerve ablation treatments periodically. Also baclofen Status: Acute Total time spent: Total time spent is greater than 50% in coordination of care (as documented) at patient's floor/unit and/or counseling patient: (15) Delirium: Problem comment: - Records indicate history of hospital associated delirium. - Noted to have delirium morning of 12/02/22 - continue with supportive efforts. - Reviewed with his significant other, Freda. She understands and is supportive. - Continue with supportive efforts - no need for additional pharmacological support at this time - Will work with aids social worker to establish safe discharge disposition plan Status: Acute Total time spent: Total time spent is greater than 50% in coordination of care (as documented) at patient's floor/unit and/or counseling patient: (16) Abnormal chest x-ray: Problem comment: - 11/30/2022: Normal cardiac size. Masslike density in the right infrahilar region. Recommend chest CT for further evaluation. Normal pulmonary vasculature. No effusion or pneumothorax. No acute osseous abnormality. - Compared CXR to previous CT scan of chest 10/16/2021 with radiologist: chronic prominent pulmonary artery (mass in RLL of CXR) and chronic hilar adenopathy, R>L. No need to assess any further at this time. CXR consistent with previous CT scan of chest. Status: Acute Total time spent: Total time spent is greater than 50% in coordination of care (as documented) at patient's floor/unit and/or counseling patient: (17) Fever: Problem comment: - Tm 100.3? F 11/30/2022, afebrile since - no obvious source, aside from acute trauma, CLL - no pulmonary symptoms and retrospectively no obvious infiltrate on chest x-ray obtained on 11/30/2022 - negative urinalysis, urine culture negative to date - blood cultures negative to date - was started on empiric IV ceftriaxone and oral doxycycline after cultures obtained Status: Acute Total time spent: Total time spent is greater than 50% in coordination of care (as documented) at patient's floor/unit and/or counseling patient: (18) Hypokalemia due to excessive renal loss of potassium: Problem comment: -due to being on high-dose diuretics: Torsemide 60 mg 3 times daily, spironolactone 37.5 mg 2 times daily, metolazone 5 mg once daily - ordinarily on potassium 40 mEq 5 times daily; 12/01 changed to 50 mg 4 times daily in-hospital, plus gave extra dose of 50 mEq of potassium orally, and additional IV potassium supplements. - monitor serum potassium level - 12/02 K+ level low at 3.3, thus ordered additional IV K+ Status: Acute Total time spent: Total time spent is greater than 50% in coordination of care (as documented) at patient's floor/unit and/or counseling patient:
[2022-12-02] MEDS: CEFAZOLIN 2 GM in 0.9 % SODIUM CHLORIDE Mini-bag 100 ML IVPB ×2 (14:55→20:49)
--- NOTE | 2022-12-02 15:13 | W.ANESCHARGE ---
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
--- NOTE | 2022-12-02 15:24 | PC.NURSE ---
Shift note: Patient taken to PACU shortly after 1400. He has had 650 mL urinary output from Jin catheter this shift. Patient noted to have signs of pain to RLE with any kind of movement/repositioning. Lungs noted to be clear to all lobes bilaterally and bowel sounds active x 4. Patient was given AM doses of Torsemide and Spironolactone with rest of meds held per MD Rowe as patient has been NPO for surgery. IV to L wrist has been patent this shift. VSS and patient has been afebrile this shift. Significant other Freda and daughter have been present at beside for most of shift. Weight of 289 obtained by preceptor RN noted on bed scale today. TEDs and SCDs have been worn other than when removed for 1 hour this morning per protocol. No N/V or c/o CP noted this shift. Heels floated on pillows to prevent skin breakdown. Significant other asked about being able to access patient's labs on an ongoing basis so physician underwriter provided information regarding [facility] service to be accessed online. Patient continues on oxygen 2 LPM with last O2 sat of 93%. Denitrator ensured MAXINE risk band placed to wrist before surgery.
--- NOTE | 2022-12-02 16:13 | PM.ORPRC ---
Procedure Note Date of procedure: 12/02/22 Procedure: PREOPERATIVE DIAGNOSIS: 1. Right femur intertrochanteric fracture, closed, displaced POSTOPERATIVE DIAGNOSES: 1. Right femur intertrochanteric fracture, closed, displaced PROCEDURE: 1. Right femur intertrochanteric fracture fixation with intramedullary nail 2. 45079 - Intraoperative fluoroscopy up to 1 hour SURGEON: Barney Barber MD ENROBING MACHINE FEEDER: Chau LAM. An janitorial assistant was critical for this case to aide in patient positioning, suture manipulation, arm positioning, instrument positioning, and closure. ANESTHESIA: Spinal IMPLANTS: Synthes long TFNA nail: 130 degree, 12 mm X 440 mm. 115 mm leg screw. 5.0 mm distal interlocking screws x 2 EBL: 50 ml COMPLICATIONS: None evident INDICATIONS: Juan is a 77-year-old male who sustained a right intertrochanteric hip fracture following a ground level fall less than 2 days ago. Initially after the injury he was seen in outside facility, where he was diagnosed with a displaced intertrochanteric femur fracture. He was subsequently transferred to [facility] for further evaluation and treatment. Surgical stabilization of this fracture is recommended to allow for early mobilization and advancement of weight-bearing, decreased pain, and healing of the fracture. Prior to procedure, risks and benefits of the operative and non operative treatment were discussed with the patient, his son, and significant others.. After discussion of risks, benefits, and alternatives of surgery, informed consent was obtained from his son and significant other, and the operative hip was marked. FINDINGS: Closed, displaced intertrochanteric femur fracture PROCEDURE: After obtaining proper medical evaluation determining the patient was medically optimized for surgery, he was brought to the operating room and placed supine on the operating table. Induction of spinal anesthesia undertaken. 2 g IV Ancef was administered within 1 hr incision preoperatively. The patient was then positioned on the Peridot table, and all bony prominences were well padded. Fluoroscopic imaging was utilized to obtain AP and lateral views of the hip and to confirm reduction of the fracture. The operative extremity was then prepped and draped in usual sterile fashion using ChloraPrep. A surgical time-out was performed confirming patient identity surgical site and surgical procedure. An incision through skin and gluteal fascia proximal to the tip of the greater trochanter in line with the femur. The tip of the greater trochanter was palpated and the guide pin was then placed into the medial tip of the greater trochanter and advanced into the proximal femur. Correct position of the guide pin was confirmed with fluoroscopic imaging in both the AP and lateral planes. The guide pin was then overdrilled with the starting Reamer. The guide pin was then removed , and a ball-tip guidewire was placed the length of the femur. Once the guide pin was seated in the distal femur, length of guide pin was measured and decision was to proceed with a 440 mm nail. The canal was then reamed over the guidewire to using a 13.5 mm Reamer. Once the canal was reamed, the nail was passed without difficulty. Correct position at the hip and distal femur was confirmed with fluoroscopic imaging. The triple trocar was then applied to the lateral femur, 10 blade incision through the skin and ITB band along the trocars to be opposed against the lateral cortex. This was confirmed fluoroscopically to be in appropriate position. The guide pin was then placed and confirmed on AP and lateral views with the goal of center center position. A 115 mm lag screw was selected after measuring, it was then reamed, and screw placed. The proximal nail locking screw was tightened down, and left static as the fracture pattern was felt to be unstable. At this stage, C-arm confirmed proper screw/leg screw position. We then turned our attention to the distal interlocking screws. Perfect quileute technique was utilized, and the 10 blade skin incision allowed the drill bit to be placed, and confirmed on C-arm fluoroscopic imaging to be within the distal static hole. This was measured and a size 70 mm screw was selected and secured into position. A 2nd distal interlock screw measuring 54 mm in length was placed in a similar fashion through the proximal static hole. Fluoroscopic images were obtained to confirm position within the nail and the nail to be within the bone and be beyond the proximal femoral flange of the total knee component. At this stage, the wounds were thoroughly irrigated with normal saline, closure performed with 0 Vicryl for the deep gluteal fascia, and IT band. 2-0 Vicryl and 2-0 Stratafix was utilized for subcutaneous and subcuticular closure, followed by Exofin glue. Sterile dressing was then applied. The patient was awoken from anesthesia and transferred to the PACU in stable condition. POSTOPERATIVE PLAN: 1. Patient will be readmitted to the hospitalist service for perioperative medical management. 2. Mobilize with physical therapy and occupational therapy. - Partial weight-bearing right lower extremity - Acetaminophen and Oxycodone for pain as needed. -IV pain medications for breakthrough pain -Ice for pain and swelling 4. Postoperative prophylactic antibiotics x2 doses 5. DVT prophylaxis: - Resume Eliquis per preoperative dosing - Robert mcguire and Evon 6. Follow-up in [facility]opedic Clinic in 1-2 weeks.
--- NOTE | 2022-12-02 17:14 | SUR.PHASEI ---
Patient discharged from PACU per anesthesia provider, Adrienne Heard CRNA
[2022-12-02 18:46] LABS: Hemoglobin* 14.2 gm/dL (13.5-17.5)
[2022-12-02 19:00] LABS: Potassium* 3.3 mmol/L (3.6-5.1)
--- NOTE | 2022-12-02 19:50 | PC.NURSE ---
Patient up to floor at 1710, drowsy. Family at bedside. unable to rate pain. Patient's gee patent and draining, LR @ 75 mls/hr. Gallito teds, Gallito SCD's, and active ice to op site. IV in left hand patent. 3 sites to right hip C/D/I. Patient on 3-4 L bleeding into home Bipap.
[2022-12-02] MEDS: SODIUM CHLORIDE 0.9 % (FLUSH) 10 ML SYRINGE 5 ML IVF (20:50)
[2022-12-02] MEDS: ONDANSETRON 2 MG/ML inj 4 MG IVP (21:41)
[2022-12-02] MEDS: FAMOTIDINE 20 MG TABLET 40 MG PO (23:34)
[2022-12-02] MEDS: OMEPRAZOLE 20 MG CAPSULE DR 40 MG PO (23:35)
[2022-12-02] MEDS: GABAPENTIN 300 MG CAPSULE 600 MG PO (23:38)
[2022-12-02] MEDS: SENNOSIDES/DOCUSATE TABLET 2 TAB PO (23:41)
[2022-12-02] MEDS: ACETAMINOPHEN 325 MG TABLET 650 MG PO (23:42)
[2022-12-03] VITALS (9 sets, daily range): BP systolic 110–146; BP diastolic 62–73; PULSE 60–69; RESP 16–20; TEMP 36.9–37.3; O2SAT 88–89
[2022-12-03] MEDS: LORazepam 0.5 MG TABLET PO ×3 (00:12→21:00)
[2022-12-03] MEDS: OXYCODONE 5 MG TABLET PO ×2 (02:45→08:43)
[2022-12-03] MEDS: CEFAZOLIN 2 GM in 0.9 % SODIUM CHLORIDE Mini-bag 100 ML IVPB ×2 (05:32→13:05)
[2022-12-03] MEDS: ACETAMINOPHEN 325 MG TABLET 650 MG PO ×4 (05:33→23:44)
[2022-12-03 06:20] LABS: Hematocrit 43.9 % (37.0-53.0); Hemoglobin* 13.8 gm/dL (13.5-17.5); Immature Granulocytes Pct Auto 0.6 %; Lymphocytes Percent Auto 78.1 % (20-44); Mean Corpuscular HGB Conc 31 gm/dL (32-36); Mean Corpuscular Hemoglobin 35 pg (26-34); Mean Corpuscular Volume 110 fL (80-100); Monocytes Percent Auto 5.1 % (0.0-11.0); Neutrophils Percent Auto 16.2 % (42.0-72.0); Platelet Count* 156 K/uL (140-440); RDW Coefficient of Variation % 15.3 % (11.5-15.5); Red Blood Count 3.98 m/uL (4.30-5.90)
[2022-12-03 06:31] LABS: Chloride* 96 mmol/L (96-114)
[2022-12-03 06:32] LABS: Potassium* 3.4 mmol/L (3.6-5.1); Sodium* 138 mmol/L (135-149)
[2022-12-03 06:34] LABS: Creatinine* 1.2 mg/dL (0.5-1.5); Est. Creatinine Clearance* 61.28; Estimated Glomerular Filt Rate 62 ml/min
[2022-12-03 06:35] LABS: Anion Gap 7 mEq/L (7-15); Blood Urea Nitrogen* 60 mg/dL (7-30); Calcium* 9.2 mg/dL (8.4-10.6); Carbon Dioxide* 35 mmol/L (20-32); Glucose* 152 mg/dL (60-115)
[2022-12-03 06:46] LABS: NT Pro B Type NatriureticPept* 1970 pg/mL
[2022-12-03] MEDS: OMEPRAZOLE 20 MG CAPSULE DR 40 MG PO ×2 (07:06→17:59)
[2022-12-03] MEDS: SUCRALFATE 1 GM TABLET PO ×3 (07:06→18:02)
--- NOTE | 2022-12-03 07:42 | PC.NURSE ---
[id number]: Patient cooperative with cares. A&Ox3. Patient exhibiting mild shaking and facial twitching. MD notified and assessed. No new orders. Tolerated home BiPAP during noc w/6 Lt O2 to keep sats 88-92%. PRN Dilaudid x1 and Oxycodone x1 administered for pain. Afebrile. CMS intact. Mepilex x3 to R. hip C/D/I. Active ice to op site. Tolerating regular diet. Zofran x1 for mild nausea (resolved).
[2022-12-03 07:48] LABS: Slide Review Reflex Yes; White Blood Count* 83.09 K/uL (4.50-11.00)
[2022-12-03 07:49] LABS: Slide Review Acceptable Review (Acceptable)
[2022-12-03] MEDS: SERTRALINE 100 MG TABLET 150 MG PO (08:45)
[2022-12-03] MEDS: allopurinoL 100 MG TABLET 300 MG PO (08:46)
[2022-12-03] MEDS: SPIRONOLACTONE 25 MG TABLET 37.5 MG PO ×2 (08:47→20:58)
[2022-12-03] MEDS: EMPAGLIFLOZIN 10 MG TABLET PO (08:47)
[2022-12-03] MEDS: TORSEMIDE 20 MG TABLET 80 MG PO ×2 (08:48→14:40)
[2022-12-03] MEDS: APIXABAN 5 MG TABLET PO ×2 (08:48→17:59)
[2022-12-03] MEDS: SENNOSIDES/DOCUSATE TABLET 2 TAB PO ×2 (08:48→20:59)
[2022-12-03] MEDS: GABAPENTIN 300 MG CAPSULE 600 MG PO ×3 (08:48→20:58)
[2022-12-03] MEDS: polyethylene glycoL 3350 17 GM PACK PO (08:49)
[2022-12-03] MEDS: POTASSIUM BICARB 25 MEQ EFFERVESCENT TAB 50 MEQ PO ×4 (08:49→20:57)
[2022-12-03] MEDS: metOLazone 2.5 MG TABLET 5 MG PO (09:00)
[2022-12-03] MEDS: SODIUM CHLORIDE 0.9 % (FLUSH) 10 ML SYRINGE 5 ML IVF ×2 (09:01→20:59)
--- NOTE | 2022-12-03 09:35 | RESP.RT ---
Patient sitting up in chair appears comfortable. Breathing regular/easy, rat 20/minute on Nasal Cannula 2.5 Lpm with SaO2 89%. Goal to maintain SaO2 between 85/92%. Breaths present equal. Patient has Home BiPAP, uses at night and during naps, 6 Lpm was bleed into BiPAP during night to maintain SaO2 >85%.
--- NOTE | 2022-12-03 10:56 | RESP.RT ---
Patient placed on Home BiPAP at 11:45 with 6 Lpm O2 bleed in, SaO2 88%, respiratory rate 16/minute, patient appears to be sleeping comfortably.
--- NOTE | 2022-12-03 11:45 | PM.ORPN ---
Subjective Subjective Date Seen: 12/03/22 Principal diagnosis: Status postop day 1, hospital day 3, right femur IM nail Interval history: Patient reports doing okay. Struggling with pain. He also struggles with constipation thus pain control is a balance right now. Trying to manage with scheduled and p.r.n. medications, ice. No acute events over night. DVT prophylaxis: Apixaban b.i.d. restarted this morning, bilateral knee high Robert stockings, SCDs, walking. Transfers have been very difficult. He was assistive 3 this morning and had a very difficult time transferring out of bed into chair. 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 Intention is partial weight-bearing right lower extremity, approximately 50%, while I understand that 50% is somewhat subjective during transfers. Denies fevers, chills, aches, N/V, CP, SOB/ALDRICH. Does report some fogginess and his head due to intraoperative analgesics. Ortho Exam Narrative Exam Narrative: -Patient appears uncomfortable in chair, trying to reposition himself; no apparent acute distress. Significant other, and children are in the room with him -Alert and oriented to self and place -Operative hip moderately swollen; soft tissues supple; no obvious erythema. Ecchymosis noted posterior thigh Warmth appropriate -Surgical dressings clean, dry, intact; no obvious drainage, no erythematous streaking peripheral to the bandages -Bilateral calves soft and supple; no significant swelling, edema, tenderness, erythema, discoloration, warmth, or palpable cords -2+ DP/PT pulses, intact dermatomes and myotomes distally. No numbness about the lateral femoral cutaneous nerve distribution. Const Vital Signs, click to edit/add: Vital Signs - 24 hr 12/02/22 16:30 12/02/22 16:35 12/02/22 16:40 Temperature 97.6 F Pulse Rate 60 60 60 Pulse Rate [Pulse Oximeter] Respiratory Rate 14 14 14 Blood Pressure 100/60 104/64 106/64 Blood Pressure [Right Arm] Pulse Oximetry 94 93 93 Oxygen Delivery Method Non Rebreather Mask Non Rebreather Mask Non Rebreather Mask Oxygen Flow Rate 2 2 2 12/02/22 16:45 12/02/22 16:50 12/02/22 16:55 Temperature 97.6 F Pulse Rate 67 62 62 Pulse Rate [Pulse Oximeter] Respiratory Rate 16 16 16 Blood Pressure 112/65 106/63 107/62 Blood Pressure [Right Arm] Pulse Oximetry 93 92 93 Oxygen Delivery Method Non Rebreather Mask Non Rebreather Mask Non Rebreather Mask Oxygen Flow Rate 2 2 2 12/02/22 17:00 12/02/22 17:15 12/02/22 17:30 Temperature 97.7 F 98.0 F 97.9 F Pulse Rate 61 Pulse Rate [Pulse Oximeter] 61 61 Respiratory Rate 16 18 18 Blood Pressure 104/60 Blood Pressure [Right Arm] 102/59 L 102/59 L Pulse Oximetry 93 90 89 Oxygen Delivery Method Non Rebreather Mask BiPAP BiPAP Oxygen Flow Rate 2 4 4 12/02/22 17:45 12/02/22 18:00 12/02/22 18:26 Temperature 97.7 F 97.9 F 98.0 F Pulse Rate 72 Pulse Rate [Pulse Oximeter] 60 60 Respiratory Rate 18 16 18 Blood Pressure Blood Pressure [Right Arm] 108/57 L 97/61 105/62 Pulse Oximetry 89 89 Oxygen Delivery Method OxyMask OxyMask OxyMask Oxygen Flow Rate 4 3 3 12/02/22 18:30 12/02/22 19:00 12/02/22 20:00 Temperature 98.0 F 98.4 F 98.4 F Pulse Rate Pulse Rate [Pulse Oximeter] 60 61 60 Respiratory Rate 16 16 16 Blood Pressure Blood Pressure [Right Arm] 102/59 L 109/62 109/64 Pulse Oximetry 88 86 L 88 Oxygen Delivery Method BiPAP BiPAP BiPAP Oxygen Flow Rate 4 4.5 6.0 12/02/22 20:29 12/02/22 21:00 12/02/22 22:00 Temperature 98.4 F 98.8 F 98.8 F Pulse Rate Pulse Rate [Pulse Oximeter] 61 61 71 Respiratory Rate 16 18 18 Blood Pressure Blood Pressure [Right Arm] 109/62 104/57 L 109/60 Pulse Oximetry 86 L 89 88 Oxygen Delivery Method BiPAP Nasal Cannula Nasal Cannula Oxygen Flow Rate 4.5 3.0 3.0 12/02/22 23:00 12/02/22 23:00 12/02/22 23:00 Temperature 98.8 F 98.8 F Pulse Rate Pulse Rate [Pulse Oximeter] 64 64 Respiratory Rate 18 18 18 Blood Pressure Blood Pressure [Right Arm] 114/57 L 114/57 L Pulse Oximetry 88 89 89 Oxygen Delivery Method BiPAP BiPAP BiPAP Oxygen Flow Rate 5.0 5.0 5.0 12/02/22 23:00 12/03/22 02:37 12/03/22 07:00 Temperature 99.1 F Pulse Rate 62 Pulse Rate [Pulse Oximeter] 60 61 Respiratory Rate 16 18 Blood Pressure Blood Pressure [Right Arm] 123/67 Pulse Oximetry 88 Oxygen Delivery Method BiPAP Oxygen Flow Rate 6.0 12/03/22 07:00 12/03/22 07:00 12/03/22 09:34 Temperature 99.1 F Pulse Rate Pulse Rate [Pulse Oximeter] 61 Respiratory Rate 18 18 20 Blood Pressure Blood Pressure [Right Arm] 146/73 H Pulse Oximetry 89 89 89 Oxygen Delivery Method Nasal Cannula Nasal Cannula Nasal Cannula Oxygen Flow Rate 3 3 2.5 Assessment and Plan Assessment and plan (1) Intertrochanteric fracture of right femur: Status: Acute (2) Status post-operative repair of closed hip fracture: Problem details: Postop day 1 right femur IM nail for intertrochanteric fracture (date of surgery 12/02/2022 Dr. Barber) Status: Acute (3) Heart failure with reduced ejection fraction: Problem details: - History of systolic failure. Echocardiogram from 09/14/2022, [place], shows ejection fraction of 56%, right-sided heart pressure of 38 mmHg, severely enlarged left atrium, mild aortic regurgitation and no other significant valvular disease. - ordinarily on high dose of diuretics and monitor closely: Torsemide 60 mg 3 times daily, spironolactone 37.5 mg 2 times daily, metolazone 5 mg once daily. - I change the torsemide 80 mg twice daily, continued with the spironolactone dose as presently on, and held the metolazone here in the hospital. - ordinarily requires high-dose potassium supplementation, normally 40 mEq 5 times daily; I have changed it to 50 mEq 4 times daily. I gave him an extra 50 mEq of K+ 12/01. On 12/02 I ordered and extra 40 mEq K+ IV. Status: Acute (4) Obesity: Problem details: Significant weight loss from previous BMI of greater than 40. Current BMI 33.7. Status: Acute (5) Gastrointestinal bleeding, upper: Problem details: History of GI bleeding about December 2020. Had normal colonoscopy. Diagnosed with esophageal cancer. Briefly off warfarin and developed a PE. Restarted apixaban. Status: Acute (6) Pulmonary embolism: Problem details: Developed pulmonary embolism and DVT when he was taken off warfarin for a GI bleed about December 2020. Lifelong anticoagulation recommended. Status: Acute (7) Impaired mobility: Problem details: Was wheelchair-bound in 2021, and over the past 10 months has advanced to walking with a walker and now with a cane. Status: Acute (8) Chronic acquired lymphedema: Problem details: Support hose and pneumatic compression Status: Acute (9) Obstructive sleep apnea: Problem details: Continue home BiPAP Status: Acute (10) Chronic anticoagulation: Problem details: For atrial fibrillation and history of pulmonary embolism and DVT. Stop apixaban. Anticipate surgery 12/02, thus did not initiate bridging enoxaparin therapy pre-op. Status: Acute (11) CLL (chronic lymphocytic leukemia): Problem details: Not receiving treatment, with total white blood cell count 70,000 on 11/30/2022, 73,000 on 12/02. Status: Acute (12) Paroxysmal atrial fibrillation: Problem details: On anticoagulation with apixaban, last dose received was morning of 11/30/2022. On hold for surgery. Status: Acute (13) Stage 3 chronic kidney disease: Status: Acute (14) At risk for falls: Status: Acute (15) Chronic low back pain: Problem details: He is treated with nerve ablation treatments periodically. Also baclofen Status: Acute (16) Delirium: Problem details: - Records indicate history of hospital associated delirium. - Noted to have delirium morning of 12/02/22 - continue with supportive efforts. - Reviewed with his significant other, Freda. She understands and is supportive. - Continue with supportive efforts - no need for additional pharmacological support at this time - Will work with social media senior associate to establish safe discharge disposition plan Status: Acute (17) Abnormal chest x-ray: Problem details: - 11/30/2022: Normal cardiac size. Masslike density in the right infrahilar region. Recommend chest CT for further evaluation. Normal pulmonary vasculature. No effusion or pneumothorax. No acute osseous abnormality. - Compared CXR to previous CT scan of chest 10/16/2021 with radiologist: chronic prominent pulmonary artery (mass in RLL of CXR) and chronic hilar adenopathy, R>L. No need to assess any further at this time. CXR consistent with previous CT scan of chest. Status: Acute (18) Fever: Problem details: - Tm 100.3? F 11/30/2022, afebrile since - no obvious source, aside from acute trauma, CLL - no pulmonary symptoms and retrospectively no obvious infiltrate on chest x-ray obtained on 11/30/2022 - negative urinalysis, urine culture negative to date - blood cultures negative to date - was started on empiric IV ceftriaxone and oral doxycycline after cultures obtained Status: Acute (19) Hypokalemia due to excessive renal loss of potassium: Problem details: -due to being on high-dose diuretics: Torsemide 60 mg 3 times daily, spironolactone 37.5 mg 2 times daily, metolazone 5 mg once daily - ordinarily on potassium 40 mEq 5 times daily; 12/01 changed to 50 mg 4 times daily in-hospital, plus gave extra dose of 50 mEq of potassium orally, and additional IV potassium supplements. - monitor serum potassium level - 12/02 K+ level low at 3.3, thus ordered additional IV K+ Status: Acute Plan - Complete 23 hour perioperative antibiotics including antibiotics for CAP - PT/OT consult for education and assistance. Patient will be partial weight-bearing approximately 50% right lower extremity at this time, walker for assistance. I understand this may be difficult and somewhat subjective weight-bearing status, as it has been difficult for patient to even transfer assistive of 3. Pain of the right extremity seems to drive his difficulty transferring and weight-bearing, which is being balanced with history of constipation from narcotics. He comments he has not had a bowel movement for 3 days. Passing flatus - Social work consult for discharge planning - recommend SNF due to partial weight-bearing status and multiple comorbidities - Prescribed analgesics as needed - DVT prophylaxis: Apixaban b.i.d. (which is a chronic anticoagulation for the patient to AFib and history of PE/DVT), bilateral knee high Robert Hose stockings and SCDs - Anticipation is for discharge to SNF if the patient remains medically stable, pain is controlled, and they are reasonably safe with mobilization at partial weight-bearing status.
[2022-12-03] MEDS: BACLOFEN 10 MG TABLET 20 MG PO (16:03)
[2022-12-03] MEDS: FAMOTIDINE 20 MG TABLET 40 MG PO (17:59)
[2022-12-03 18:48] LABS: Chloride* 87 mmol/L (96-114); Potassium* 3.1 mmol/L (3.6-5.1); Sodium* 133 mmol/L (135-149)
[2022-12-03 18:51] LABS: Blood Urea Nitrogen* 67 mg/dL (7-30); Creatinine* 1.6 mg/dL (0.5-1.5); Est. Creatinine Clearance* 45.96; Estimated Glomerular Filt Rate 44 ml/min
[2022-12-03 18:52] LABS: Calcium* 8.9 mg/dL (8.4-10.6); Glucose* 194 mg/dL (60-115)
[2022-12-03 18:58] LABS: Carbon Dioxide* 36 mmol/L (20-32)
[2022-12-03 19:02] LABS: Anion Gap 10 mEq/L (7-15)
[2022-12-03] MEDS: TRAZODONE HCL 50 MG TABLET 100 MG PO (20:58)
[2022-12-04] VITALS (9 sets, daily range): BP systolic 93–124; BP diastolic 49–67; PULSE 59–66; RESP 14–24; TEMP 36.5–37.5; O2SAT 88–98
[2022-12-04] MEDS: OXYCODONE 5 MG TABLET PO ×5 (00:02→21:17)
[2022-12-04] MEDS: ACETAMINOPHEN 325 MG TABLET 650 MG PO (06:15)
[2022-12-04] MEDS: OMEPRAZOLE 20 MG CAPSULE DR 40 MG PO ×2 (06:15→17:52)
[2022-12-04] MEDS: SUCRALFATE 1 GM TABLET PO ×3 (06:15→21:15)
--- NOTE | 2022-12-04 06:42 | PC.NURSE ---
[id number]: Patient cooperative with cares. Frequent T&R. Patient experiences intense pain with movement but hesitant to take Oxycodone. Patient did agree to take Oxycodone x1 during shift. Active ice to op site. Passing gas. Afebrile. CMS intact. 3 Mepilex dressings to R. Hip/thigh/knee C/D/I. Tolerated home BiPAP w/4 Lt O2 during noc with sats 88-89%. Jin patent and draining large amounts sarina colored urine. Denies N/V.
[2022-12-04 06:45] LABS: Basophils Percent Auto 0.1 % (0.0-3.0); Hematocrit 39.3 % (37.0-53.0); Hemoglobin* 12.5 gm/dL (13.5-17.5); Immature Granulocytes Pct Auto 0.5 %; Lymphocytes Percent Auto 79.6 % (20-44); Mean Corpuscular HGB Conc 32 gm/dL (32-36); Mean Corpuscular Hemoglobin 35 pg (26-34); Mean Corpuscular Volume 110 fL (80-100); Monocytes Percent Auto 5.5 % (0.0-11.0); Neutrophils Percent Auto 14.3 % (42.0-72.0); Platelet Count* 155 K/uL (140-440); Red Blood Count 3.57 m/uL (4.30-5.90)
[2022-12-04 06:59] LABS: Chloride* 88 mmol/L (96-114); Potassium* 3.8 mmol/L (3.6-5.1); Sodium* 131 mmol/L (135-149)
[2022-12-04 07:01] LABS: Creatinine* 1.6 mg/dL (0.5-1.5); Est. Creatinine Clearance* 45.96; Estimated Glomerular Filt Rate 44 ml/min
[2022-12-04 07:02] LABS: Anion Gap 4 mEq/L (7-15); Blood Urea Nitrogen* 72 mg/dL (7-30); Calcium* 8.8 mg/dL (8.4-10.6); Carbon Dioxide* 39 mmol/L (20-32); Glucose* 130 mg/dL (60-115)
[2022-12-04 07:22] LABS: Slide Review Reflex Yes; White Blood Count* 85.59 K/uL (4.50-11.00)
[2022-12-04 07:29] LABS: Slide Review Acceptable Review (Acceptable)
[2022-12-04] MEDS: TORSEMIDE 20 MG TABLET 80 MG PO ×2 (08:06→13:53)
[2022-12-04] MEDS: POTASSIUM BICARB 25 MEQ EFFERVESCENT TAB 50 MEQ PO ×4 (09:37→21:17)
[2022-12-04] MEDS: LIDOCAINE 5% PATCH 1 PATCH TRANSDERMA (09:38)
[2022-12-04] MEDS: EMPAGLIFLOZIN 10 MG TABLET PO (09:39)
[2022-12-04] MEDS: polyethylene glycoL 3350 17 GM PACK PO (09:39)
[2022-12-04] MEDS: GABAPENTIN 300 MG CAPSULE 600 MG PO ×3 (09:40→21:15)
[2022-12-04] MEDS: SERTRALINE 100 MG TABLET 150 MG PO (09:41)
[2022-12-04] MEDS: SENNOSIDES/DOCUSATE TABLET 2 TAB PO ×2 (09:42→21:16)
[2022-12-04] MEDS: SPIRONOLACTONE 25 MG TABLET 37.5 MG PO ×2 (09:43→21:15)
[2022-12-04] MEDS: CELECOXIB 200 MG CAPSULE PO (09:45)
[2022-12-04] MEDS: allopurinoL 100 MG TABLET 300 MG PO (09:46)
[2022-12-04] MEDS: APIXABAN 5 MG TABLET PO ×2 (09:47→17:50)
[2022-12-04] MEDS: metOLazone 2.5 MG TABLET 5 MG PO (09:48)
--- NOTE | 2022-12-04 13:39 | RESP.RT ---
Patient was on Home BiPAP during night with Oxygen breed in at 4 Lpm, maintain SaO2 >85%, patient tolerated it well. Patient being transferred Chair to Bed with lift, doing will, no SOB. Goal is to Maintain Patient between 85 and 92% with Nasal Cannul and Oxygen bleed in on Home BiPAP.
[2022-12-04] MEDS: ACETAMINOPHEN 650 MG TABLET ER 1300 MG PO ×2 (13:54→21:16)
--- NOTE | 2022-12-04 16:04 | P.IMPN_ITS ---
Progress Note: A&P Assessment and plan (1) Intertrochanteric fracture of right femur: Problem details: s/p mechanical fall at home 11/30/22 SOS for right femur fracture 12/02/22. Status: Acute (2) Status post-operative repair of closed hip fracture: Problem details: Postop day 2 right femur IM nail for intertrochanteric fracture (date of surgery 12/02/2022 Dr. Barber) Status: Acute (3) Heart failure with reduced ejection fraction: Problem details: - History of systolic failure. Echocardiogram from 09/14/2022, [place], shows ejection fraction of 56%, right-sided heart pressure of 38 mmHg, severely enlarged left atrium, mild aortic regurgitation and no other significant valvular disease. - ordinarily on high dose of diuretics and monitor closely: Torsemide 60 mg 3 times daily, spironolactone 37.5 mg 2 times daily, metolazone 5 mg once daily. - I change the torsemide 80 mg twice daily, continued with the spironolactone dose as presently on, and held the metolazone here in the hospital. (restarted on 12/03) - ordinarily requires high-dose potassium supplementation, normally 40 mEq 5 times daily; I have changed it to 50 mEq 4 times daily. Status: Acute (4) Obesity: Problem details: Significant weight loss from previous BMI of greater than 40. Current BMI 33.7. Status: Acute (5) Gastrointestinal bleeding, upper: Problem details: History of GI bleeding about December 2020. Had normal colonoscopy. Diagnosed with esophageal cancer. Briefly off warfarin and developed a PE. Restarted api xaban. Status: Acute (6) Pulmonary embolism: Problem details: Developed pulmonary embolism and DVT when he was taken off warfarin for a GI bleed about December 2020. Lifelong anticoagulation recommended. Status: Acute (7) Impaired mobility: Problem details: Was wheelchair-bound in 2021, and over the past 10 months has advanced to walking with a walker and now with a cane. Status: Acute (8) Chronic acquired lymphedema: Problem details: Support hose and pneumatic compression Status: Acute (9) Obstructive sleep apnea: Problem details: Continue home BiPAP Status: Acute (10) Chronic anticoagulation: Problem details: For atrial fibrillation and history of pulmonary embolism and DVT. Stop apixaban. Anticipate surgery 12/02, thus did not initiate bridging enoxaparin therapy pre-op. Status: Acute (11) CLL (chronic lymphocytic leukemia): Problem details: Not receiving treatment, with total white blood cell count elevated. monitoring. Status: Acute (12) Paroxysmal atrial fibrillation: Problem details: On anticoagulation with apixaban, last dose received was morning of 11/30/2022. On hold for surgery. Status: Acute (13) Stage 3 chronic kidney disease: Status: Acute (14) At risk for falls: Status: Acute (15) Chronic low back pain: Problem details: He is treated with nerve ablation treatments periodically. Also baclofen Status: Acute (16) Delirium: Problem details: - Records indicate history of hospital associated delirium. - Noted to have delirium morning of 12/02/22 - continue with supportive efforts. - Reviewed with his significant other, Freda. She understands and is supportive. - Continue with supportive efforts - no need for additional pharmacological support at this time - Will work with health social work professor to establish safe discharge disposition plan Status: Acute (17) Abnormal chest x-ray: Problem details: - 11/30/2022: Normal cardiac size. Masslike density in the right infrahilar region. Recommend chest CT for further evaluation. Normal pulmonary vasculature. No effusion or pneumothorax. No acute osseous abnormality. - Compared CXR to previous CT scan of chest 10/16/2021 with radiologist: chronic prominent pulmonary artery (mass in RLL of CXR) and chronic hilar adenopathy, R>L. No need to assess any further at this time. CXR consistent with previous CT scan of chest. Status: Acute Subjective Date Seen: 12/04/22 Interval history: Daily Progress Note - Hospital Medicine Day #: 5 Post-Op Day: 3 Right femur intertrochanteric fracture fixation with intramedullary nail CC: fall, right hip fracture, delirium. OVERNIGHT UPDATES FROM STAFF & MED, LAB, IMAGING UPDATES slow improvement in pain and mental clarity. PT and OT are working quite diligently to get him to follow commands, trust his strength and work with the pain. PMH is significant for large doses of diuresis. no apparent fluid overload/CHF since arrival. oxygen support 2-3L. CBC reflects an elevated white blood cell count consistent with his CLL. 85.59 Hemoglobin 12.5 Sodium drifting down to 131 from 133. Potassium is now normal. Creatinine has bumped up to 1.6 from 1.2 CXR from 11/30 (admission) Normal cardiac size. Masslike density in the right infrahilar region. Recommend chest CT for further evaluation. Normal pulmonary vasculature. No effusion or pneumothorax. No acute osseous abnormality. Objective: alert, answering questions. can smile at appropriate times. Vitals: see above Lungs: Clear. Cardiac: S1S2. right leg: surgical wounds dry. intact. Disposition/Potential discharge - Likely to return to previous living situation after brief rehab stay. Exam Const: Vital Signs, click to edit/add: Vital Signs - 24 hr 12/03/22 19:26 12/03/22 19:59 12/03/22 22:30 Temperature 99.0 F Pulse Rate 60 Pulse Rate [Pulse Oximeter] 69 Respiratory Rate 20 20 Blood Pressure [Ri ght Arm] 120/64 Pulse Oximetry 88 88 Oxygen Delivery Me thod Nasal Cannula BiPAP Oxygen Flow Rate 2.0 4.0 12/03/22 23:45 12/04/22 04:10 12/04/22 07:00 Temperature 98.4 F 98.7 F Pulse Rate Pulse Rate [Pulse Oximeter] 62 60 Respiratory Rate 20 18 Blood Pressure [Ri ght Arm] 110/72 124/66 Pulse Oximetry 88 89 90 Oxygen Delivery Me thod BiPAP BiPAP Nasal Cannula Oxygen Flow Rate 4.0 4.0 2.5 12/04/22 08:18 12/04/22 11:00 12/04/22 12:05 Temperature 99.5 F 97.7 F Pulse Rate Pulse Rate [Pulse Oximeter] 66 59 L Respiratory Rate 18 18 24 Blood Pressure [Ri ght Arm] 100/49 L 113/54 L Pulse Oximetry 90 91 98 Oxygen Delivery Me thod Nasal Cannula Nasal Cannula Nasal Cannula Oxygen Flow Rate 2 2 2 Labs Labs: Laboratory Results - last 24 hr 12/03/22 12/04/22 17:41 06:05 WBC 85.59 H* RBC 3.57 L Hgb 12.5 L Hct 39.3 MCV 110 H MCH 35 H MCHC 32 RDW Coeff of Casey 15.0 Plt Count 155 Neut % (Auto) 14.3 L Lymph % (Auto) 79.6 H [place] % (Auto) 5.5 Eos % (Auto) 0.0 Baso % (Auto) 0.1 Neut # (Auto) 12.20 H Lymph # (Auto) 68.10 H [place] # (Auto) 4.70 H Eos # (Auto) 0.00 Baso # (Auto) 0.10 Abs Immat Gran (auto) 0.40 H Imm/Tot Granulo (auto) 0.5 Diff Slide Review Acceptable Review Sodium 133 L 131 L Potassium 3.1 L 3.8 Chloride 87 L 88 L Carbon Dioxide 36 H 39 H Anion Gap 10 4 L BUN 67 H 72 H Creatinine 1.6 H 1.6 H Estimated Creat Clear 45.96 45.96 Estimated GFR 44 44 Glucose 194 H 130 H Calcium 8.9 8.8
--- NOTE | 2022-12-04 16:16 | PM.IMPN1 ---
Progress Note: A&P Assessment and plan (1) Intertrochanteric fracture of right femur: Problem details: s/p mechanical fall at home 11/30/22 SOS for right femur fracture 12/02/22. Status: Acute (2) Status post-operative repair of closed hip fracture: Problem details: Postop day 2 right femur IM nail for intertrochanteric fracture (date of surgery 12/02/2022 Dr. Barber) pain management - started celebrex 200mg qd (12/04) Status: Acute (3) Heart failure with reduced ejection fraction: Problem details: - History of systolic failure. Echocardiogram from 09/14/2022, [place], shows ejection fraction of 56%, right-sided heart pressure of 38 mmHg, severely enlarged left atrium, mild aortic regurgitation and no other significant valvular disease. - ordinarily on high dose of diuretics and monitor closely: Torsemide 60 mg 3 times daily, spironolactone 37.5 mg 2 times daily, metolazone 5 mg once daily. - I change the torsemide 80 mg twice daily, continued with the spironolactone dose as presently on, and held the metolazone here in the hospital. (restarted on 12/03) - ordinarily requires high-dose potassium supplementation, normally 40 mEq 5 times daily; I have changed it to 50 mEq 4 times daily. -following creatine and we are at 1.6 on 12/03 and 12/04. Status: Acute (4) JORDAN (acute kidney injury): Problem details: 1.6 pm 12/03 and 12/04 with normal potassium. will decrease the 80mg BID of torsemide back to 60mg TID Status: Acute (5) Obesity: Problem details: Significant weight loss from previous BMI of greater than 40. Current BMI 33.7. Status: Acute (6) Gastrointestinal bleeding, upper: Problem details: History of GI bleeding about December 2020. Had normal colonoscopy. Diagnosed with esophageal cancer. Briefly off warfarin and developed a PE. Restarted apixaban. Status: Acute (7) Pulmonary embolism: Problem details: Developed pulmonary embolism and DVT when he was taken off warfarin for a GI bleed about December 2020. Lifelong anticoagulation recommended. Status: Acute (8) Impaired mobility: Problem details: Was wheelchair-bound in 2021, and over the past 10 months has advanced to walking with a walker and now with a cane. Status: Acute (9) Chronic acquired lymphedema: Problem details: Support hose and pneumatic compression Status: Acute (10) Obstructive sleep apnea: Problem details: Continue home BiPAP Status: Acute (11) Chronic anticoagulation: Problem details: For atrial fibrillation and history of pulmonary embolism and DVT. Stop apixaban. Anticipate surgery 12/02, thus did not initiate bridging enoxaparin therapy pre-op. Status: Acute (12) CLL (chronic lymphocytic leukemia): Problem details: Not receiving treatment, with total white blood cell count elevated. monitoring. Status: Acute (13) Paroxysmal atrial fibrillation: Problem details: On anticoagulation with apixaban, last dose received was morning of 11/30/2022. On hold for surgery. Status: Acute (14) Stage 3 chronic kidney disease: Status: Acute (15) At risk for falls: Status: Acute (16) Chronic low back pain: Problem details: He is treated with nerve ablation treatments periodically. Also baclofen Status: Acute (17) Delirium: Problem details: - Records indicate history of hospital associated delirium. - Noted to have delirium morning of 12/02/22 - continue with supportive efforts. - Reviewed with his significant other, Freda. She understands and is supportive. - Continue with supportive efforts - no need for additional pharmacological support at this time - Will work with sr. social media & mobile manager to establish safe discharge disposition plan Status: Acute (18) Abnormal chest x-ray: Problem details: - 11/30/2022: Normal cardiac size. Masslike density in the right infrahilar region. Recommend chest CT for further evaluation. Normal pulmonary vasculature. No effusion or pneumothorax. No acute osseous abnormality. - Compared CXR to previous CT scan of chest 10/16/2021 with radiologist: chronic prominent pulmonary artery (mass in RLL of CXR) and chronic hilar adenopathy, R>L. No need to assess any further at this time. CXR consistent with previous CT scan of chest. Status: Acute Subjective Date Seen: 12/03/22 Interval history: Daily Progress Note - Hospital Medicine Day #: 4 Post-Op Day: 2 Right femur intertrochanteric fracture fixation with intramedullary nail CC: fall, right hip fracture, delirium. OVERNIGHT UPDATES FROM STAFF & MED, LAB, IMAGING UPDATES delirium is less prominent than day of surgery. CBC reflects an elevated white blood cell count consistent with his CLL. >80 Hemoglobin 12.5 Sodium drifting down to 131 from 133. Potassium is now normal. Creatinine has bumped up to 1.6 from 1.2 CXR from 11/30 (admission) Normal cardiac size. Masslike density in the right infrahilar region --> no need to repeat imaging. Recommend chest CT for further evaluation. Normal pulmonary vasculature. No effusion or pneumothorax. No acute osseous abnormality. Objective: alert, answering questions. can smile at appropriate times. Vitals: see above Lungs: Clear. Cardiac: S1S2. right leg: surgical wounds dry. intact. Disposition/Potential discharge - Likely to return to previous living situation after brief rehab stay. Exam Const: Vital Signs, click to edit/add: Vital Signs - 24 hr 12/03/22 19:26 12/03/22 19:59 12/03/22 22:30 Temperature 99.0 F Pulse Rate 60 Pulse Rate [Pulse Oximeter] 69 Respiratory Rate 20 20 Blood Pressure [Ri ght Arm] 120/64 Pulse Oximetry 88 88 Oxygen Delivery Me thod Nasal Cannula BiPAP Oxygen Flow Rate 2.0 4.0 12/03/22 23:45 12/04/22 04:10 12/04/22 07:00 Temperature 98.4 F 98.7 F Pulse Rate Pulse Rate [Pulse Oximeter] 62 60 Respiratory Rate 20 18 Blood Pressure [Ri ght Arm] 110/72 124/66 Pulse Oximetry 88 89 90 Oxygen Delivery Me thod BiPAP BiPAP Nasal Cannula Oxygen Flow Rate 4.0 4.0 2.5 12/04/22 08:18 12/04/22 11:00 12/04/22 12:05 Temperature 99.5 F 97.7 F Pulse Rate Pulse Rate [Pulse Oximeter] 66 59 L Respiratory Rate 18 18 24 Blood Pressure [Ri ght Arm] 100/49 L 113/54 L Pulse Oximetry 90 91 98 Oxygen Delivery Me thod Nasal Cannula Nasal Cannula Nasal Cannula Oxygen Flow Rate 2 2 2 12/04/22 15:00 Temperature Pulse Rate Pulse Rate [Pulse Oximeter] Respiratory Rate 20 Blood Pressure [Ri ght Arm] Pulse Oximetry 91 Oxygen Delivery Me thod Room Air Oxygen Flow Rate Labs Labs: Laboratory Results - last 24 hr 12/03/22 12/04/22 17:41 06:05 WBC 85.59 H* RBC 3.57 L Hgb 12.5 L Hct 39.3 MCV 110 H MCH 35 H MCHC 32 RDW Coeff of [place] 15.0 Plt Count 155 Neut % (Auto) 14.3 L Lymph % (Auto) 79.6 H [place] % (Auto) 5.5 Eos % (Auto) 0.0 Baso % (Auto) 0.1 Neut # (Auto) 12.20 H Lymph # (Auto) 68.10 H [place] # (Auto) 4.70 H Eos # (Auto) 0.00 Baso # (Auto) 0.10 Abs Immat Gran (auto) 0.40 H Imm/Tot Granulo (auto) 0.5 Diff Slide Review Acceptable Review Sodium 133 L 131 L Potassium 3.1 L 3.8 Chloride 87 L 88 L Carbon Dioxide 36 H 39 H Anion Gap 10 4 L BUN 67 H 72 H Creatinine 1.6 H 1.6 H Estimated Creat Clear 45.96 45.96 Estimated GFR 44 44 Glucose 194 H 130 H Calcium 8.9 8.8
[2022-12-04] MEDS: FAMOTIDINE 20 MG TABLET 40 MG PO (17:49)
[2022-12-04] MEDS: bisacodyL 10 MG SUPP.RECT PR (18:10)
--- NOTE | 2022-12-04 19:01 | PC.NURSE ---
shift note: pt up with ceiling for transfers. Pt medicated x3 with 5mg oxycodone with rt l/e pain relief. Rt thigh and knee swollen. PP+ bilat. pt remained on 2L pnc O2 to keep sats >88%. Pt encouraged to CDB. Pt using IS to 1000 intermittently with encouragement. LS dim.
[2022-12-04] MEDS: SODIUM CHLORIDE 0.9 % (FLUSH) 10 ML SYRINGE 5 ML IVF (21:14)
[2022-12-04] MEDS: TORSEMIDE 20 MG TABLET 60 MG PO (21:16)
[2022-12-04] MEDS: TRAZODONE HCL 50 MG TABLET 100 MG PO (21:16)
[2022-12-05] VITALS (9 sets, daily range): BP systolic 95–117; BP diastolic 55–63; PULSE 60–63; RESP 16–20; TEMP 36.4–37.1; O2SAT 86–91
[2022-12-05] MEDS: OXYCODONE 5 MG TABLET PO ×6 (02:20→22:02)
[2022-12-05] MEDS: BACLOFEN 10 MG TABLET 20 MG PO ×2 (03:51→12:02)
[2022-12-05 06:36] LABS: Hematocrit 37.1 % (37.0-53.0); Hemoglobin* 11.5 gm/dL (13.5-17.5); Mean Corpuscular HGB Conc 31 gm/dL (32-36); Mean Corpuscular Hemoglobin 34 pg (26-34); Mean Corpuscular Volume 111 fL (80-100); Platelet Count* 165 K/uL (140-440); Red Blood Count 3.34 m/uL (4.30-5.90)
[2022-12-05] MEDS: ACETAMINOPHEN 650 MG TABLET ER 1300 MG PO ×3 (06:38→21:40)
[2022-12-05] MEDS: OMEPRAZOLE 20 MG CAPSULE DR 40 MG PO ×2 (06:39→16:58)
[2022-12-05] MEDS: SUCRALFATE 1 GM TABLET PO ×3 (06:39→16:58)
[2022-12-05 06:46] LABS: Chloride* 87 mmol/L (96-114); Potassium* 3.6 mmol/L (3.6-5.1); Sodium* 131 mmol/L (135-149)
[2022-12-05 06:48] LABS: Creatinine* 1.5 mg/dL (0.5-1.5); Est. Creatinine Clearance* 49.03; Estimated Glomerular Filt Rate 47 ml/min
[2022-12-05 06:49] LABS: Blood Urea Nitrogen* 79 mg/dL (7-30); Calcium* 8.8 mg/dL (8.4-10.6); Glucose* 119 mg/dL (60-115)
[2022-12-05 06:58] LABS: Anion Gap 5 mEq/L (7-15); Carbon Dioxide* 39 mmol/L (20-32)
[2022-12-05 07:35] LABS: White Blood Count* 78.53 K/uL (4.50-11.00)
[2022-12-05 07:36] LABS: Slide Review Reflex Yes
--- NOTE | 2022-12-05 07:36 | PC.NURSE ---
[id number]: Patient more conversational and clear today. Education provided on pain management and importance of increased movement. Agreeable to take pain medications more regularly as to maintain a therapeutic level for pain control. No BM. Active ice to op site. Frequent T&R. Ceiling lift. Denies N/V/CP. Davin patent. CMS intact.
[2022-12-05 07:38] LABS: Slide Review Acceptable Review (Acceptable)
[2022-12-05] MEDS: allopurinoL 100 MG TABLET 300 MG PO (08:18)
[2022-12-05] MEDS: CELECOXIB 200 MG CAPSULE PO (08:19)
[2022-12-05] MEDS: EMPAGLIFLOZIN 10 MG TABLET PO (08:19)
[2022-12-05] MEDS: APIXABAN 5 MG TABLET PO ×2 (08:19→16:58)
[2022-12-05] MEDS: POTASSIUM BICARB 25 MEQ EFFERVESCENT TAB 50 MEQ PO ×4 (08:20→21:37)
[2022-12-05] MEDS: GABAPENTIN 300 MG CAPSULE 600 MG PO ×3 (08:21→21:37)
[2022-12-05] MEDS: LIDOCAINE 5% PATCH 1 PATCH TRANSDERMA (08:22)
[2022-12-05] MEDS: metOLazone 2.5 MG TABLET 5 MG PO (08:23)
[2022-12-05] MEDS: polyethylene glycoL 3350 17 GM PACK PO (08:24)
[2022-12-05] MEDS: SENNOSIDES/DOCUSATE TABLET 2 TAB PO ×2 (08:24→21:37)
[2022-12-05] MEDS: SERTRALINE 100 MG TABLET 150 MG PO (08:25)
[2022-12-05] MEDS: TORSEMIDE 20 MG TABLET 60 MG PO ×3 (08:27→21:38)
[2022-12-05] MEDS: SODIUM CHLORIDE 0.9 % (FLUSH) 10 ML SYRINGE 5 ML IVF ×2 (08:27→21:37)
--- NOTE | 2022-12-05 13:13 | P.ORPN_ITS ---
Subjective Subjective Date Seen: 12/05/22 Principal diagnosis: Status postop day 3, hospital day 5, right femur IM nail Interval history: Patient reports doing better. Staff note improvements in allowing him postoperative. Using ceiling lift, but was able to use easy stand today with success. Urinary catheter still present. No acute events over night. Pain managed with scheduled and PRN medications, ice. DVT prophylaxis: Apixaban b.i.d., bilateral knee high Robert stockings, SCDs. Denies fevers, chills, aches, N/V, CP, SOB/ALDRICH, or lightheadedness. 2 BMs today. Ortho Exam Narrative Exam Narrative: -Patient appears comfortable in bed, sitting upright; no apparent acute distress. Not grimacing in pain as I saw him on 12/03/2022 -Alert and oriented times 3. His responses during dialogue are quicker than on 12/03/2022 -Operative hip swollen with ecchymosis in the groin and buttock/lateral hip soft tissues supple; no obvious erythema. Warmth appropriate -Surgical dressings clean, dry, intact; no obvious drainage, no erythematous streaking peripheral to the bandages -Bilateral calves soft and supple; no significant swelling, edema, tenderness, e rythema, discoloration, warmth, or palpable cords -2+ DP/PT pulses, intact dermatomes and myotomes distally. No numbness about the lateral femoral cutaneous nerve distribution. -bandages on the right upper extremity including elbow, covering skin tears from the fall. These appear healthy without drainage. Const Vital Signs, click to edit/add: Vital Signs - 24 hr 12/04/22 15:00 12/04/22 15:00 12/04/22 15:00 Temperature 98.4 F Pulse Rate Pulse Rate [Pulse Oximeter] 63 63 Respiratory Rate 20 20 20 Blood Pressure [Right Arm] 107/61 Pulse Oximetry 91 91 Oxygen Delivery Method Room Air Room Air Oxygen Flow Rate 2 12/04/22 15:00 12/04/22 21:02 12/04/22 23:00 Temperature 99.0 F Pulse Rate 65 61 Pulse Rate [Pulse Oximeter] 63 Respiratory Rate 18 Blood Pressure [Right Arm] 117/67 Pulse Oximetry 88 Oxygen Delivery Method Nasal Cannula Oxygen Flow Rate 2.0 12/04/22 23:00 12/04/22 23:49 12/05/22 02:27 Temperature 97.9 F 97.6 F Pulse Rate Pulse Rate [Pulse Oximeter] 60 62 Respiratory Rate 14 14 16 Blood Pressure [Right Arm] 93/55 L 106/63 Pulse Oximetry 91 91 89 Oxygen Delivery Method BiPAP BiPAP BiPAP Oxygen Flow Rate 4.0 4.0 4.0 12/05/22 07:24 12/05/22 07:25 12/05/22 07:27 Temperature 98.0 F Pulse Rate 61 Pulse Rate [Pulse Oximeter] 63 Respiratory Rate 18 18 Blood Pressure [Right Arm] 95/59 L Pulse Oximetry 90 90 Oxygen Delivery Method Nasal Cannula Nasal Cannula Oxygen Flow Rate 2 12/05/22 11:00 Temperature 98.7 F Pulse Rate Pulse Rate [Pulse Oximeter] 62 Respiratory Rate 16 Blood Pressure [Right Arm] 96/55 L Pulse Oximetry 89 Oxygen Delivery Method Oxygen Flow Rate Assessment and Plan Assessment and plan (1) Intertrochanteric fracture of right femur: Problem details: s/p mechanical fall at home 11/30/22 SOS for right femur fracture 12/02/22. Status: Acute (2) Status post-operative repair of closed hip fracture: Problem details: Postop day 3 right femur IM nail for intertrochanteric fracture (date of surgery 12/02/2022 Dr. Barber) pain management - started celebrex 200mg qd (12/04) Status: Acute (3) Heart failure with reduced ejection fraction: Problem details: - History of systolic failure. Echocardiogram from 09/14/2022, [place], shows ejection fraction of 56%, right-sided heart pressure of 38 mmHg, severely enlarged left atrium, mild aortic regurgitation and no other significant valvular disease. - ordinarily on high dose of diuretics and monitor closely: Torsemide 60 mg 3 times daily, spironolactone 37.5 mg 2 times daily, metolazone 5 mg once daily. - I change the torsemide 80 mg twice daily, continued with the spironolactone dose as presently on, and held the metolazone here in the hospital. (restarted on 12/03) - ordinarily requires high-dose potassium supplementation, normally 40 mEq 5 times daily; I have changed it to 50 mEq 4 times daily. -following creatine and we are at 1.6 on 12/03 and 12/04. Status: Acute (4) JORDAN (acute kidney injury): Problem details: 1.6 pm 12/03 and 12/04 with normal potassium. will decrease the 80mg BID of torsemide back to 60mg TID Status: Acute (5) Obesity: Problem details: Significant weight loss from previous BMI of greater than 40. Current BMI 33.7. Status: Acute (6) Gastrointestinal bleeding, upper: Problem details: History of GI bleeding about December 2020. Had normal colonoscopy. Diagnosed with esophageal cancer. Briefly off warfarin and developed a PE. Restarted apixaban. Status: Acute (7) Pulmonary embolism: Problem details: Developed pulmonary embolism and DVT when he was taken off warfarin for a GI bleed about December 2020. Lifelong anticoagulation recommended. Status: Acute (8) Impaired mobility: Problem details: Was wheelchair-bound in 2021, and over the past 10 months has advanced to walking with a walker and now with a cane. Status: Acute (9) Chronic acquired lymphedema: Problem details: Support hose and pneumatic compression Status: Acute (10) Obstructive sleep apnea: Problem details: Continue home BiPAP Status: Acute (11) Chronic anticoagulation: Problem details: For atrial fibrillation and history of pulmonary embolism and DVT. Stop apixaban. Anticipate surgery 12/02, thus did not initiate bridging enoxaparin therapy pre-op. Status: Acute (12) CLL (chronic lymphocytic leukemia): Problem details: Not receiving treatment, with total white blood cell count elevated. monitoring. Status: Acute (13) Paroxysmal atrial fibrillation: Problem details: On anticoagulation with apixaban, last dose received was morning of 11/30/2022. On hold for surgery. Status: Acute (14) Stage 3 chronic kidney disease: Status: Acute (15) At risk for falls: Status: Acute (16) Chronic low back pain: Problem details: He is treated with nerve ablation treatments periodically. Also baclofen Status: Acute (17) Delirium: Problem details: - Records indicate history of hospital associated delirium. - Noted to have delirium morning of 12/02/22 - continue with supportive efforts. - Reviewed with his significant other, Freda. She understands and is supportive. - Continue with supportive efforts - no need for additional pharmacological support at this time - Will work with social sciences department chair to establish safe discharge disposition plan Status: Acute (18) Abnormal chest x-ray: Problem details: - 11/30/2022: Normal cardiac size. Masslike density in the right infrahilar region. Recommend chest CT for further evaluation. Normal pulmonary vasculature. No effusion or pneumothorax. No acute osseous abnormality. - Compared CXR to previous CT scan of chest 10/16/2021 with radiologist: chronic prominent pulmonary artery (mass in RLL of CXR) and chronic hilar adenopathy, R>L. No need to assess any further at this time. CXR consistent with previous CT scan of chest. Status: Acute Plan - PT/OT consult for education and assistance - reassuring to see him advancing to the easy stand - Social work consult for discharge planning - per patient's spouse/significant other, potential placement for Monday12/07/2022 - Prescribed analgesics as needed - it appears that the current medication regimen for pain is working. - DVT prophylaxis: Apixaban, bilateral knee high Robert Hose stockings and SCDs - Anticipation is for discharge to SNF if the patient remains medically stable, pain is controlled, and they are reasonably safe with mobilization, with consideration for 50% weight-bearing operative leg.
--- NOTE | 2022-12-05 13:15 | PC.NURSE ---
Patient's pain to R hip and chronic pain to lower back has been managed with rest, repositioning, ice, scheduled pain medications and PRN Oxycodone today. B/P has been trending lower today with B/P values of 96/55 and 95/59. Spironolactone dose held this morning per order. Patient has been afebrile and continues on oxygen 2 LPM with O2 sat of 89% before lunch. PT completed this morning- physical therapy recommended for patient to transfer with assist of 2 and EZ stand. Patient has been alert & oriented x 4 and has been discussing possible [facility] placement upon discharge with MD and social media intern. Patient noted to have one large loose incontinent BM this morning. Lung sounds noted to be clear to all lobes bilaterally. Patient has nonpitting edema to RLE due to surgery performed to this extremity. Bilateral TEDs and SCDs worn with 1 hour removal completed this morning. No N/V or c/o CP noted this shift.
--- NOTE | 2022-12-05 14:11 | P.IMPN_ITS ---
Progress Note: A&P Assessment and plan (1) Intertrochanteric fracture of right femur: Problem details: s/p mechanical fall at home 11/30/22 SOS for right femur fracture 12/02/22. Status: Acute (2) Status post-operative repair of closed hip fracture: Problem details: Postop day 3 right femur IM nail for intertrochanteric fracture (date of surgery 12/02/2022 Dr. Barber) pain management - started celebrex 200mg qd (12/04) Status: Acute (3) Heart failure with reduced ejection fraction: Problem details: - History of systolic failure. Echocardiogram from 09/14/2022, [place], shows ejection fraction of 56%, right-sided heart pressure of 38 mmHg, severely enlarged left atrium, mild aortic regurgitation and no other significant valvular disease. - ordinarily on high dose of diuretics and monitor closely: Torsemide 60 mg 3 times daily, spironolactone 37.5 mg 2 times daily, metolazone 5 mg once daily. - Torsemide was at 60 TID, team changed him to 80 mg twice daily, continued with the spironolactone dose as presently on, and held the metolazone here in the hospital. (restarted on 12/03) - ordinarily requires high-dose potassium supplementation, normally 40 mEq 5 times daily; we have changed it to 50 mEq 4 times daily. -following creatine, baseline 1.2, 12/05 1.5 Status: Acute (4) Delirium: Problem details: - Records indicate history of hospital associated delirium. - Noted to have delirium morning of 12/02/22 - continue with supportive efforts. - Reviewed with his significant other, Freda. She understands and is supportive. - Continue with supportive efforts - no need for additional pharmacological support at this time - Will work with perinatal social worker to establish safe discharge disposition plan Status: Acute (5) JORDAN (acute kidney injury): Problem details: 1.6 pm 12/03 and 12/04 with normal potassium. will decrease the 80mg BID of torsemide back to 60mg TID - 12/05 1.5 Status: Acute (6) Abnormal chest x-ray: Problem details: - 11/30/2022: Normal cardiac size. Masslike density in the right infrahilar region. Recommend chest CT for further evaluation. Normal pulmonary vasculature. No effusion or pneumothorax. No acute osseous abnormality. - Compared CXR to previous CT scan of chest 10/16/2021 with radiologist: chronic prominent pulmonary artery (mass in RLL of CXR) and chronic hilar adenopathy, R>L. No need to assess any further at this time. CXR consistent with previous CT scan of chest. Status: Acute (7) Obesity: Problem details: Significant weight loss from previous BMI of greater than 40. Current BMI 33.7. Status: Acute (8) Impaired mobility: Problem details: Was wheelchair-bound in 2021, and over the past 10 months has advanced to walking with a walker and now with a cane. Status: Acute (9) Chronic acquired lymphedema: Problem details: Support hose and pneumatic compression Status: Acute (10) Obstructive sleep apnea: Problem details: Continue home BiPAP Status: Acute (11) CLL (chronic lymphocytic leukemia): Problem details: Not receiving treatment, with total white blood cell count elevated. monitoring. Status: Acute (12) Paroxysmal atrial fibrillation: Problem details: apixiban restared post-op day 1 Status: Acute (13) Stage 3 chronic kidney disease: Status: Acute (14) At risk for falls: Status: Acute (15) Chronic low back pain: Problem details: He is treated with nerve ablation treatments periodically. Also baclofen Status: Acute Subjective Date Seen: 12/05/22 Interval history: Daily Progress Note - Hospital Medicine Day #: 5 Post-Op Day: 3 Right femur intertrochanteric fracture fixation with intramedullary nail CC: fall, right hip fracture, delirium. OVERNIGHT UPDATES FROM STAFF & MED, LAB, IMAGING UPDATES delirium is less prominent than day of surgery. pt is making progress with easy stand, better pain management. Continues to be afebrile. Blood pressure 90s systolic over 50s diastolic. Pulse rate 60s. Respiratory rate 16. Pulse ox 89-92% on 2 L. Weight is 133 kilos. This is a bed scale weight and less likely to be accurate. However it appears to be more in line with the 131 he was a couple of days ago. Hemoglobin 11.5 Elevated white blood cell count consistent with his CLL. 75- 85K. Sodium holding steady at 131. Creatinine is down to 1.5. Urine and blood cultures remain negative. CXR from 11/30 (admission) Normal cardiac size. Masslike density in the right infrahilar region --> no need to repeat imaging. Recommend chest CT for further evaluation. Normal pulmonary vasculature. No effusion or pneumothorax. No acute osseous abnormality. Objective: alert, answering questions. can smile at appropriate times. Vitals: see above Lungs: Clear. Cardiac: S1S2. right leg: surgical wounds dry. intact. Disposition/Potential discharge - Likely to return to previous living situation after brief rehab stay. Exam Const: Vital Signs, click to edit/add: Vital Signs - 24 hr 12/04/22 15:00 12/04/22 15:00 12/04/22 15:00 Temperature 98.4 F Pulse Rate Pulse Rate [Pulse Oximeter] 63 63 Respiratory Rate 20 20 20 Blood Pressure [Ri ght Arm] 107/61 Pulse Oximetry 91 91 Oxygen Delivery Me thod Room Air Room Air Oxygen Flow Rate 2 12/04/22 15:00 12/04/22 21:02 12/04/22 23:00 Temperature 99.0 F Pulse Rate 65 61 Pulse Rate [Pulse Oximeter] 63 Respiratory Rate 18 Blood Pressure [Ri ght Arm] 117/67 Pulse Oximetry 88 Oxygen Delivery Me thod Nasal Cannula Oxygen Flow Rate 2.0 12/04/22 23:00 12/04/22 23:49 12/05/22 02:27 Temperature 97.9 F 97.6 F Pulse Rate Pulse Rate [Pulse Oximeter] 60 62 Respiratory Rate 14 14 16 Blood Pressure [Ri ght Arm] 93/55 L 106/63 Pulse Oximetry 91 91 89 Oxygen Delivery Me thod BiPAP BiPAP BiPAP Oxygen Flow Rate 4.0 4.0 4.0 12/05/22 07:24 12/05/22 07:25 12/05/22 07:27 Temperature 98.0 F Pulse Rate 61 Pulse Rate [Pulse Oximeter] 63 Respiratory Rate 18 18 Blood Pressure [Ri ght Arm] 95/59 L Pulse Oximetry 90 90 Oxygen Delivery Me thod Nasal Cannula Nasal Cannula Oxygen Flow Rate 2 12/05/22 11:00 Temperature 98.7 F Pulse Rate Pulse Rate [Pulse Oximeter] 62 Respiratory Rate 16 Blood Pressure [Ri ght Arm] 96/55 L Pulse Oximetry 89 Oxygen Delivery Me thod Oxygen Flow Rate Labs Labs: Laboratory Results - last 24 hr 12/05/22 05:46 WBC 78.53 H* RBC 3.34 L Hgb 11.5 L Hct 37.1 MCV 111 H MCH 34 MCHC 31 L RDW Coeff of Casey 15.0 Plt Count 165 Neut % (Auto) 29.0 L Lymph % (Auto) 60.0 H [place] % (Auto) 9.0 Eos % (Auto) 1.0 Baso % (Auto) 0.0 Neut # (Auto) 22.80 H Lymph # (Auto) 47.10 H [place] # (Auto) 7.10 H Eos # (Auto) 0.80 H Baso # (Auto) 0.00 Abs Immat Gran (auto) 0.80 H Imm/Tot Granulo (auto) 1.0 Diff Slide Review Acceptable Review Sodium 131 L Potassium 3.6 Chloride 87 L Carbon Dioxide 39 H Anion Gap 5 L BUN 79 H Creatinine 1.5 Estimated Creat Clear 49.03 Estimated GFR 47 Glucose 119 H Calcium 8.8
--- NOTE | 2022-12-05 14:23 | RESP.RT ---
Patient on Home BIPAP during night with 4 Lpm O2 bleed in. During day patient is on Nasal Cannula 2 Lpm maintaining SaO2 >90%.
--- NOTE | 2022-12-05 15:37 | PC.NURSE ---
Patient noted to have three surgical sites to lateral R hip and leg- dressings noted to be C/D/I. Patient remains able to make his needs known and remains SL with IV in L wrist.
--- NOTE | 2022-12-05 16:15 | PC.SOCIAL ---
Discharge planning- Met with pt and pt's friend Freda to discuss discharge plans. PT/OT recommendations for SNF for short-term rehab. Pt is not medically cleared for discharge at this time. Pt and pt's friend DO NOT want pt to go to the [facility] in [place]. Pt is interested in [facility] (Pt has had a previous rehab stay at [facility]). Pt is also interested in [facility] in [place], [facility], and [facility] in [place]. Phone call to the following facilities. 1. [facility]- E-mail to Kayla in admissions to discuss availability. There will be one male opening this week and they will review referral. Secure e-mailed referral to [facility]. 2. [facility] in [place]- Phone call to Mitzi in admissions. There is one opening. Secure emailed referral to Mitzi at [facility]. 3. [facility] in [place]- Phone call to admissions. Left a voicemail inquiring on bed availability. Social work will follow up as needed.
--- NOTE | 2022-12-05 17:26 | PC.NURSE ---
This proposal writer entered patients chart to check diet order d/t confusion with kitchen staff being told pt was NPO and order was cancelled. Pt is on regular diet, confirmed with hospitalist team.
[2022-12-05] MEDS: FAMOTIDINE 20 MG TABLET 40 MG PO (21:36)
[2022-12-05] MEDS: SPIRONOLACTONE 25 MG TABLET 37.5 MG PO (21:38)
[2022-12-05] MEDS: TRAZODONE HCL 50 MG TABLET 100 MG PO (21:39)
--- NOTE | 2022-12-05 23:35 | PC.NURSE ---
VSS, 2L NC saturations in high 80s, low 90s. Right hip and low back pain of 5- relief w/ 5 mg oxy x1. Tolerating regular diet, drinking well. ~1000 cc cloudy, light sarina urine out of gee catheter- cath cares done. Last BM this AM, 12/05. CMS intact, some swelling/bruising on left lateral thigh- iced. PIV in left wrist- SL'd. Up using EZ-stand, repositioned q2h in bed. Will continue to monitor, follow POC, and keep pt and family updated. Mendy Toro RN
[2022-12-06] VITALS (12 sets, daily range): BP systolic 102–122; BP diastolic 51–76; PULSE 60–74; RESP 16; TEMP 36–36.7; O2SAT 82–93
[2022-12-06] MEDS: OXYCODONE 5 MG TABLET PO ×3 (04:40→12:13)
[2022-12-06] MEDS: SUCRALFATE 1 GM TABLET PO ×3 (06:34→18:41)
[2022-12-06] MEDS: OMEPRAZOLE 20 MG CAPSULE DR 40 MG PO ×2 (06:35→18:40)
[2022-12-06] MEDS: ACETAMINOPHEN 650 MG TABLET ER 1300 MG PO ×3 (06:40→22:11)
--- NOTE | 2022-12-06 06:58 | PC.NURSE ---
[id number]: Patient cooperative with cares. Sleepy. PRN Oxycodone x1 for and active ice for pain. CMS intact. Mepilex x3 on R. Hip, thigh, knee C/D/I. Frequent T&R. Afebrile. Home BiPAP during noc.
[2022-12-06 07:07] LABS: Hematocrit 38.3 % (37.0-53.0); Hemoglobin* 11.9 gm/dL (13.5-17.5); Mean Corpuscular HGB Conc 31 gm/dL (32-36); Mean Corpuscular Hemoglobin 35 pg (26-34); Mean Corpuscular Volume 111 fL (80-100); Platelet Count* 212 K/uL (140-440); Red Blood Count 3.44 m/uL (4.30-5.90)
[2022-12-06 07:26] LABS: Slide Review Reflex No; White Blood Count* 86.97 K/uL (4.50-11.00)
[2022-12-06 08:09] LABS: Chloride* 85 mmol/L (96-114); Potassium* 3.6 mmol/L (3.6-5.1); Sodium* 134 mmol/L (135-149)
[2022-12-06 08:11] LABS: Creatinine* 1.4 mg/dL (0.5-1.5); Est. Creatinine Clearance* 52.53; Estimated Glomerular Filt Rate 51 ml/min
[2022-12-06 08:12] LABS: Blood Urea Nitrogen* 86 mg/dL (7-30); Calcium* 8.8 mg/dL (8.4-10.6); Glucose* 117 mg/dL (60-115)
[2022-12-06 08:19] LABS: Anion Gap 11 mEq/L (7-15); Carbon Dioxide* 38 mmol/L (20-32)
[2022-12-06] MEDS: APIXABAN 5 MG TABLET PO ×2 (09:01→18:40)
[2022-12-06] MEDS: SERTRALINE 100 MG TABLET 150 MG PO (09:01)
[2022-12-06] MEDS: SENNOSIDES/DOCUSATE TABLET 2 TAB PO (09:01)
[2022-12-06] MEDS: EMPAGLIFLOZIN 10 MG TABLET PO (09:01)
[2022-12-06] MEDS: TORSEMIDE 20 MG TABLET 60 MG PO ×3 (09:02→20:38)
[2022-12-06] MEDS: polyethylene glycoL 3350 17 GM PACK PO (09:02)
[2022-12-06] MEDS: SPIRONOLACTONE 25 MG TABLET 37.5 MG PO ×2 (09:02→20:34)
[2022-12-06] MEDS: GABAPENTIN 300 MG CAPSULE 600 MG PO ×3 (09:02→20:40)
[2022-12-06] MEDS: CELECOXIB 200 MG CAPSULE PO (09:02)
[2022-12-06] MEDS: POTASSIUM BICARB 25 MEQ EFFERVESCENT TAB 50 MEQ PO ×4 (09:03→20:32)
[2022-12-06] MEDS: allopurinoL 100 MG TABLET 300 MG PO (09:03)
[2022-12-06] MEDS: metOLazone 2.5 MG TABLET 5 MG PO (09:05)
[2022-12-06] MEDS: BACLOFEN 10 MG TABLET 20 MG PO ×2 (09:05→20:33)
[2022-12-06] MEDS: LIDOCAINE 5% PATCH 1 PATCH TRANSDERMA (11:31)
[2022-12-06] MEDS: SODIUM CHLORIDE 0.9 % (FLUSH) 10 ML SYRINGE 5 ML IVF ×2 (11:33→20:39)
--- NOTE | 2022-12-06 12:51 | P.ORPN_ITS ---
Subjective Subjective Date Seen: 12/06/22 Principal diagnosis: Status postop day 4, hospital day 6, right femur IM nail Interval history: Patient reports swell. No acute events over night. Her spouse, reports he seems more foggy today than previous day. Was able to stand for 15 seconds with a walker today, otherwise using EZ stand. Pain managed with scheduled and PRN medications, ice. DVT prophylaxis: Apixaban b.i.d. (chronic anticoagulation), bilateral knee high Robert stockings, SCDs, walking. Denies fevers, chills, aches, N/V, CP, SOB/ALDRICH, or lightheadedness. Ortho Exam Narrative Exam Narrative: -Patient appears comfortable in recliner, just finished lunch; no apparent acute distress -Alert to self and place; seems more delayed with conversational responses today -Operative hip and right lower extremity moderately swollen; soft tissues supple; no obvious erythema. Ecchymosis noted throughout the posterior hip, dry, and migrated to the lateral calf, mildly tender to the lateral calf ecchymotic region. Warmth appropriate. -Surgical dressings clean, dry, intact; no obvious drainage, no erythematous streaking peripheral to the bandage -Bilateral calves soft and supple; no significant swelling, edema, tenderness, erythema, discoloration (aside from ecchymosis lateral calf), warmth, or palpable cords -2+ DP/PT pulses, intact dermatomes and myotomes distally (5/5 strength). Now numbness about the lateral femoral cutaneous nerve distribution. Const Vital Signs, click to edit/add: Vital Signs - 24 hr 12/05/22 14:22 12/05/22 15:00 12/05/22 15:00 Temperature 98.3 F Pulse Rate Pulse Rate [Pulse Oximeter] 63 Respiratory Rate 20 18 18 Blood Pressure [Right Arm] 117/60 Pulse Oximetry 91 86 L 86 L Oxygen Delivery Method Nasal Cannula Nasal Cannula Nasal Cannula Oxygen Flow Rate 2 2 2 12/05/22 15:00 12/05/22 19:00 12/05/22 23:00 Temperature 98.4 F Pulse Rate Pulse Rate [Pulse Oximeter] 60 60 Respiratory Rate 18 18 18 Blood Pressure [Right Arm] 105/63 Pulse Oximetry 89 88 Oxygen Delivery Method Nasal Cannula BiPAP Oxygen Flow Rate 2 4.0 12/05/22 23:00 12/06/22 00:27 12/06/22 01:42 Temperature 97.4 F L Pulse Rate 74 Pulse Rate [Pulse Oximeter] 61 Respiratory Rate 18 16 Blood Pressure [Right Arm] 102/71 Pulse Oximetry 88 88 Oxygen Delivery Method BiPAP BiPAP Oxygen Flow Rate 4.0 4.0 Assessment and Plan Assessment and plan (1) Intertrochanteric fracture of right femur: Problem details: s/p mechanical fall at home 11/30/22 SOS for right femur fracture 12/02/22. Status: Acute (2) Status post-operative repair of closed hip fracture: Problem details: Postop day 3 right femur IM nail for intertrochanteric fracture (date of surgery 12/02/2022 Dr. Barber) pain management - started celebrex 200mg qd (12/04) Status: Acute (3) Heart failure with reduced ejection fraction: Problem details: - History of systolic failure. Echocardiogram from 09/14/2022, [place], shows ejection fraction of 56%, right-sided heart pressure of 38 mmHg, severely enlarged left atrium, mild aortic regurgitation and no other significant v alvular disease. - ordinarily on high dose of diuretics and monitor closely: Torsemide 60 mg 3 times daily, spironolactone 37.5 mg 2 times daily, metolazone 5 mg once daily. - Torsemide was at 60 TID, team changed him to 80 mg twice daily, continued with the spironolactone dose as presently on, and held the metolazone here in the hospital. (restarted on 12/03) - ordinarily requires high-dose potassium supplementation, normally 40 mEq 5 times daily; we have changed it to 50 mEq 4 times daily. -following creatine, baseline 1.2, 12/05 1.5 Status: Acute (4) Delirium: Problem details: - Records indicate history of hospital associated delirium. - Noted to have delirium morning of 12/02/22 - continue with supportive efforts. - Reviewed with his significant other, Freda. She understands and is supportive. - Continue with supportive efforts - no need for additional pharmacological support at this time - Will work with social work program coordinator to establish safe discharge disposition plan Status: Acute (5) JORDAN (acute kidney injury): Problem details: 1.6 pm 12/03 and 12/04 with normal potassium. will decrease the 80mg BID of torsemide back to 60mg TID - 12/05 1.5 Status: Acute (6) Abnormal chest x-ray: Problem details: - 11/30/2022: Normal cardiac size. Masslike density in the right infrahilar region. Recommend chest CT for further evaluation. Normal pulmonary vasculature. No effusion or pneumothorax. No acute osseous abnormality. - Compared CXR to previous CT scan of chest 10/16/2021 with radiologist: chronic prominent pulmonary artery (mass in RLL of CXR) and chronic hilar adenopathy, R>L. No need to assess any further at this time. CXR consistent with previous CT scan of chest. Status: Acute (7) Obesity: Problem details: Significant weight loss from previous BMI of greater than 40. Current BMI 33.7. Status: Acute (8) Impaired mobility: Problem details: Was wheelchair-bound in 2021, and over the past 10 months has advanced to walking with a walker and now with a cane. Status: Acute (9) Chronic acquired lymphedema: Problem details: Support hose and pneumatic compression Status: Acute (10) Obstructive sleep apnea: Problem details: Continue home BiPAP Status: Acute (11) CLL (chronic lymphocytic leukemia): Problem details: Not receiving treatment, with total white blood cell count elevated. monitoring. Status: Acute (12) Paroxysmal atrial fibrillation: Problem details: apixiban restared post-op day 1 Status: Acute (13) Stage 3 chronic kidney disease: Status: Acute (14) At risk for falls: Status: Acute (15) Chronic low back pain: Problem details: He is treated with nerve ablation treatments periodically. Also baclofen Status: Acute Plan - PT/OT consult for education and assistance -reassuring to see him up with walker today. - Social work consult for discharge planning - will need SNF - Prescribed analgesics as needed - this is a difficult balance due to patient's postoperative delirium, which seemed better on 12/05/22. - DVT prophylaxis: Apixaban, bilateral knee high Robert Hose stockings and SCDs - Anticipation is for discharge to SNF if the patient remains medically stable, pain is controlled, and they are safe with mobilization. Mobilization and patient's cognition are the biggest challenge at this time.
--- NOTE | 2022-12-06 13:58 | PC.SOCIAL ---
Addendum entered by FAREED Avina 12/06/22 15:37: Follow up with MD and nursing regarding requests for medication and wheelchair size. MD is aware of requests for medication. Provided update to Mitzi at [facility] on wheelchair size, per nursing 24 seat would be sufficient. Addendum entered by FAREED Avina 12/06/22 14:39: Completed preadmission screening. Confirmation #[id number]. Original Note: Discharge planning- Received a phone call from Wilma at [facility]. Wilma informed that [facility] has accepted pt for admission for tomorrow (12/07). Wilma requests information on size of wheelchair needed, requests a change on the lidocaine patch to 4%, and requests that pt has enough prescription of Oxycodone until Monday. This worker will discuss information with provider and provide information back to [facility]. Met with pt and pt's friend Freda in pt's room. Provided update on pt being accepted to [facility]. Pt will have a private room with shared bathroom. Pt and pt's friend were pleased and would like to accept. Informed that pt will likely discharge tomorrow to [facility] if pt is medically cleared for discharge in the morning. It would be pending on how pt is doing today/tonight. Pt will qualify for non-emergency EMS due to mobility and oxygen use. Discussed and provided information to charge nurse and MD. Social work will follow up as needed.
--- NOTE | 2022-12-06 14:48 | PM.IMPN1 ---
Progress Note: A&P Assessment and plan (1) Intertrochanteric fracture of right femur: Problem details: s/p mechanical fall at home 11/30/22 SOS for right femur fracture 12/02/22. Status: Acute (2) Status post-operative repair of closed hip fracture: Problem details: Postop day 4 right femur IM nail for intertrochanteric fracture (date of surgery 12/02/2022 Dr. Barber) pain management - started celebrex 200mg qd (12/04), lidocaine patch, scheduled Tylenol Status: Acute (3) Heart failure with reduced ejection fraction: Problem details: - History of systolic failure. Echocardiogram from 09/14/2022, [place], shows ejection fraction of 56%, right-sided heart pressure of 38 mmHg, severely enlarged left atrium, mild aortic regurgitation and no other significant valvular disease. - ordinarily on high dose of diuretics and monitor closely: Torsemide 60 mg 3 times daily, spironolactone 37.5 mg 2 times daily, metolazone 5 mg once daily. - Torsemide was at 60 TID, team changed him to 80 mg twice daily, continued with the spironolactone dose as presently on, and held the metolazone here in the hospital. (restarted on 12/03) - ordinarily requires high-dose potassium supplementation, normally 40 mEq 5 times daily; we have changed it to 50 mEq 4 times daily. Potassium stable at 3.6 -following creatinine, downtrending, 1.4, baseline 1.2 -weight essentially unchanged -net negative fluid balance just >1000 -continuing to require supplemental oxygen, 2-4 L. Uses BiPAP at night, chronically Status: Acute (4) Delirium: Problem details: - Records indicate history of hospital associated delirium. - Noted to have delirium morning of 12/02/22 - continue with supportive efforts. - Reviewed with his significant other, Freda. She understands and is supportive. - Continue with supportive efforts - no need for additional pharmacological support at this time - Will work with forensic social worker to establish safe discharge disposition plan Status: Acute (5) JORDAN (acute kidney injury): Problem details: -history of CKD stage 3 -1.6 pm 12/03 and 12/04 with normal potassium. will decrease the 80mg BID of torsemide back to 60mg TID -continues to downtrend, 1.4 on 12/06 Status: Acute (6) Stage 3 chronic kidney disease: Problem details: -monitoring, management as above Status: Acute (7) Abnormal chest x-ray: Problem details: - 11/30/2022: Normal cardiac size. Masslike density in the right infrahilar region. Recommend chest CT for further evaluation. Normal pulmonary vasculature. No effusion or pneumothorax. No acute osseous abnormality. - Compared CXR to previous CT scan of chest 10/16/2021 with radiologist: chronic prominent pulmonary artery (mass in RLL of CXR) and chronic hilar adenopathy, R>L. No need to assess any further at this time. CXR consistent with previous CT scan of chest. -outpatient follow-up Status: Acute (8) Impaired mobility: Problem details: -History of, Was wheelchair-bound in 2021, and over the past 10 months has advanced to walking with a walker and now with a cane. Status: Acute (9) Chronic acquired lymphedema: Problem details: Support hose and pneumatic compression Status: Acute (10) Obstructive sleep apnea: Problem details: Continue home BiPAP Status: Acute (11) CLL (chronic lymphocytic leukemia): Problem details: Not receiving treatment, with total white blood cell count elevated. monitoring. Status: Acute (12) Paroxysmal atrial fibrillation: Problem details: apixiban restared post-op day 1 Status: Acute (13) Chronic low back pain: Problem details: He is treated with nerve ablation treatments periodically. Also baclofen Status: Acute Plan Plan to discharge on 12/07/2022 to [facility] if medically stable, ongoing diuresis, suspect continued oxygen supplementation to be weaned as able Time Spent With Patient Total time spent: Total time spent caring for the patient today was 45 minutes. This includes time spent for the visit reviewing the chart, time spent during the visit, time spent after the visit and documentation and planning in coordination of care. Subjective Date Seen: 12/06/22 Interval history: Patient is sleeping this morning, easily awoken. Is slightly confused however, commenting on being here since September. Otherwise oriented to year and place. No headache or dizziness. No recent fevers. Pain currently adequately managed. Has been tolerating orals. Has been requiring 2-4 L oxygen, using his home BiPAP at night. Desats to upper 80s after removing it this morning. Exam Narrative: Exam Narrative: PHYSICAL EXAM General: Lying in bed, NAD Cardiovascular: RRR, S1S2. Pulmonary: CTA bilaterally without rhonchi, rales, expiratory wheezes. No dyspnea Abdominal: Soft, nondistended, NTTP Neurological: Alert, mildly confused, cranial nerves intact, no focal findings Extremities: No gross joint deformity or swelling. AROMI. Neurovascularly intact Skin: Warm, dry. Const: Vital Signs, click to edit/add: Vital Signs - 24 hr 12/05/22 15:00 12/05/22 15:00 12/05/22 15:00 Temperature 98.3 F Pulse Rate Pulse Rate [Pulse Oximeter] 63 Respiratory Rate 18 18 18 Blood Pressure [Ri ght Arm] 117/60 Pulse Oximetry 86 L 86 L Oxygen Delivery Me thod Nasal Cannula Nasal Cannula Oxygen Flow Rate 2 2 12/05/22 19:00 12/05/22 23:00 12/05/22 23:00 Temperature 98.4 F Pulse Rate Pulse Rate [Pulse Oximeter] 60 60 Respiratory Rate 18 18 18 Blood Pressure [Ri ght Arm] 105/63 Pulse Oximetry 89 88 88 Oxygen Delivery Me thod Nasal Cannula BiPAP BiPAP Oxygen Flow Rate 2 4.0 4.0 12/06/22 00:27 12/06/22 01:42 Temperature 97.4 F L Pulse Rate 74 Pulse Rate [Pulse Oximeter] 61 Respiratory Rate 16 Blood Pressure [Ri ght Arm] 102/71 Pulse Oximetry 88 Oxygen Delivery Me thod BiPAP Oxygen Flow Rate 4.0 Labs Labs: Laboratory Results - last 24 hr 12/06/22 06:41 WBC 86.97 H* RBC 3.44 L Hgb 11.9 L Hct 38.3 MCV 111 H MCH 35 H MCHC 31 L Plt Count 212 Sodium 134 L Potassium 3.6 Chloride 85 L Carbon Dioxide 38 H Anion Gap 11 BUN 86 H Creatinine 1.4 Estimated Creat Clear 52.53 Estimated GFR 51 Glucose 117 H Calcium 8.8
--- NOTE | 2022-12-06 16:55 | CRLHL7_ITS ---
For Patients: As a result of the Century Cures Act, medical imaging exams and procedure reports are released immediately into your electronic medical record. You may view this report before your referring provider. If you have questions, please contact your health care provider. INDICATION: Altered mental status. TECHNIQUE: Noncontrast CT images acquired through the brain. COMPARISON: CT brain 05/03/2021. FINDINGS: Artifact degrades image quality. [id number]-[id number] diffuse cerebral volume loss. No mass effect or midline shift. The holder-white differentiation is maintained. No acute intracranial hemorrhage within exam limitations. No pathologic extra-axial fluid collection. Scattered hypoattenuation in the supratentorial white matter, typical for mild chronic microvascular ischemic changes. Prominent perivascular space or chronic lacunar infarction inferior left thalamus. Atherosclerotic calcifications in the carotid siphons. Thinning of the ocular lenses. The calvarium is intact. The visualized paranasal sinuses and mastoid air cells are clear. IMPRESSION: Motion artifact degrades image quality. No acute intracranial hemorrhage within exam limitations. No intracranial mass effect. Please note that all CT scans at this facility use dose modulation, iterative reconstruction, and/or weight-based dosing when appropriate to reduce radiation dose to as low as reasonably achievable. Dictated by Norman Garcia MD @ 12/06/2022 5:47:19 PM (Electronically Signed)
[2022-12-06] MEDS: FAMOTIDINE 20 MG TABLET 40 MG PO (18:40)
--- NOTE | 2022-12-06 19:57 | PC.NURSE ---
AFEBRILE. PATIENT'S O2 SATS 82-84%RA. PLACED ON 2L O2 PER NC WHEN AWAKE AND SATS 89-93%. LS CLEAR. 2+ PITTING EDEMA TO RLE AND 1+ PITTING TO LLE. TEDS ON. UP WITH EZ STAND BUT DOES NOT TOLERATE LONG. INC 2 STOOLS TODAY. AT BEGINNING OF SHIFT PATIENT HAD 10/10 RLE PAIN WITH MUSCLE SPASMS THAT WAS IMPROVED WITH PRN OXYCODONE AND BACLOFEN. TOLERATING REGULAR DIET WITH NO C/O N/V. ROBLERO REMAINING IN PLACE PER PA. THIS AFTERNOON, PATIENT MORE LETHARGIC AND HAVING DIFFICULTY STAYING AWAKE. VETO KAMINSKI UPDATED AND ASSESSED PATIENT. PATIENT'S SO CONCERNED R/T PATIENT HX OF CVA. HEAD CT COMPLETED. PATIENT MORE ALERT AT SUPPER AND UP TO RECLINER FOR MEALS WITH EZ STAND.
[2022-12-06] MEDS: TRAZODONE HCL 50 MG TABLET 100 MG PO (20:38)
[2022-12-07 02:21] VITALS: BP 118/51; PULSE 62; RESP 20; TEMP 36.6; O2SAT 92
--- NOTE | 2022-12-07 04:12 | PC.NURSE ---
Pt rested well this night. Had several incontinent episodes of large runny stools. Diuresed large amount of urine via Jin. Easy Stand from chair to bed. A2-3 to change in bed. Afebrile. Pain controlled
[2022-12-07] MEDS: OMEPRAZOLE 20 MG CAPSULE DR 40 MG PO (06:14)
[2022-12-07] MEDS: SUCRALFATE 1 GM TABLET PO (06:17)
[2022-12-07 06:42] VITALS: TEMP 36.6
[2022-12-07] MEDS: ACETAMINOPHEN 650 MG TABLET ER 1300 MG PO (06:42)
[2022-12-07 07:09] LABS: Hematocrit 38.6 % (37.0-53.0); Mean Corpuscular HGB Conc 31 gm/dL (32-36); Mean Corpuscular Hemoglobin 35 pg (26-34); Mean Corpuscular Volume 112 fL (80-100); Platelet Count* 241 K/uL (140-440); Red Blood Count 3.46 m/uL (4.30-5.90)
[2022-12-07 07:28] LABS: Chloride* 86 mmol/L (96-114); Potassium* 3.6 mmol/L (3.6-5.1); Sodium* 136 mmol/L (135-149)
[2022-12-07 07:32] VITALS: PULSE 60
[2022-12-07 07:39] LABS: Anion Gap 13 mEq/L (7-15); Carbon Dioxide* 37 mmol/L (20-32)
[2022-12-07 07:47] VITALS: BP 119/71; PULSE 67; RESP 18; TEMP 36.7; O2SAT 91
[2022-12-07 07:54] LABS: Slide Review Reflex Yes; White Blood Count* 91.08 K/uL (4.50-11.00)
[2022-12-07 08:09] LABS: Blood Urea Nitrogen* 37 mg/dL (7-30); Creatinine* 1.4 mg/dL (0.5-1.5); Est. Creatinine Clearance* 52.53; Estimated Glomerular Filt Rate 51 ml/min; Glucose* 117 mg/dL (60-115)
[2022-12-07 08:22] LABS: Slide Review Acceptable Review (Acceptable)
[2022-12-07] MEDS: TORSEMIDE 20 MG TABLET 60 MG PO (08:39)
[2022-12-07] MEDS: allopurinoL 100 MG TABLET 300 MG PO (08:39)
[2022-12-07] MEDS: metOLazone 2.5 MG TABLET 5 MG PO (08:39)
[2022-12-07] MEDS: SPIRONOLACTONE 25 MG TABLET 37.5 MG PO (08:39)
[2022-12-07] MEDS: GABAPENTIN 300 MG CAPSULE 600 MG PO (08:39)
[2022-12-07] MEDS: CELECOXIB 200 MG CAPSULE PO (08:40)
[2022-12-07] MEDS: EMPAGLIFLOZIN 10 MG TABLET PO (08:40)
[2022-12-07] MEDS: APIXABAN 5 MG TABLET PO (08:40)
[2022-12-07] MEDS: SODIUM CHLORIDE 0.9 % (FLUSH) 10 ML SYRINGE 5 ML IVF (08:41)
[2022-12-07] MEDS: POTASSIUM BICARB 25 MEQ EFFERVESCENT TAB 50 MEQ PO (08:41)
[2022-12-07] MEDS: LIDOCAINE 5% PATCH 1 PATCH TRANSDERMA (10:32)
[2022-12-07] MEDS: OXYCODONE 5 MG TABLET PO (10:33)
--- NOTE | 2022-12-07 12:00 | PC.SOCIAL ---
Pt will transfer via non-emergency EMS at 12:30 pm today to [facility]. Provided update to Mitzi at [facility]. Met with pt in room to provide pt with a copy of the medicare rights form with information to appeal discharge from the hospital. Pt has no further questions.
--- NOTE | 2022-12-07 12:57 | PC.NURSE ---
Patient transferred to [facility] in [place]. Igceb-[id number]-[id number] report given to Nurse Ibeth at [facility].
--- NOTE | 2022-12-07 15:38 | PM.DS1 ---
DS: Providers Provider Date Seen: 12/07/22 Date of admission: 11/30/22 21:42 Primary care physician: Not a Local Provider Admitting Clinician: Roberto Luque MD Consults: 11/30/22 21:47 Consult to Occupational Therapy [CONS] Routine Comment: Reason(s) for OT Consult:: Evaluate and Treat Any Restrictions?:: No Restrictions Consult to Physical Therapy [CONS] Routine Comment: Reason(s) for PT Consult:: Evaluate and Treat Any Restrictions?:: No Restrictions Consult to Armored Vehicle Officer [CONS] Routine Comment: Reason for Consult:: Discharge Planning Needs 11/30/22 22:09 Consult to Physical Therapy [CONS] Routine Comment: Reason(s) for PT Consult:: Recent Falls Any Restrictions?:: See Comment Comment: Pt had fall at home 11/30, R hip fx, currently awaiting surgery 12/02/22 16:29 Consult to Occupational Therapy [CONS] Routine Comment: Reason(s) for OT Consult:: Evaluate and Treat Any Restrictions?:: See Comment Comment: evaluate and treat Consult to Physical Therapy [CONS] Routine Comment: Reason(s) for PT Consult:: Evaluate and Treat Any Restrictions?:: Wt Bearing as Tolerated Consult to Armored Vehicle Officer [CONS] Routine Comment: Reason for Consult:: Discharge Planning Needs Attending Physician on discharge: Mechelle Castillo [facility], [facility] Date of Discharge: 12/07/22 DS: Diagnosis Discharge Diagnosis (1) Intertrochanteric fracture of right femur: Status: Acute Problem details: s/p mechanical fall at home 11/30/22 SOS for right femur fracture 12/02/22. (2) Status post-operative repair of closed hip fracture: Status: Acute Problem details: Postop day 5 right femur IM nail for intertrochanteric fracture (date of surgery 12/02/2022 Dr. Barber) pain management - started celebrex 200mg qd (12/04)- discontinued on discharge as patient is on an anticoagulant. Continue mhcl-wwd-nhtelcu lidocaine patch, scheduled Tylenol. okay for minimal doses of oxycodone as needed, monitoring for sedation and altered mental status. patient also taking baclofen for chronic back pain. (3) Heart failure with reduced ejection fraction: Status: Acute Problem details: - History of systolic failure. Echocardiogram from 09/14/2022, [facility], shows ejection fraction of 56%, right-sided heart pressure of 38 mmHg, severely enlarged left atrium, mild aortic regurgitation and no other significant valvular disease. - ordinarily on high dose of diuretics and monitor closely: Torsemide 60 mg 3 times daily, spironolactone 37.5 mg 2 times daily, metolazone 5 mg once daily. - Torsemide was at 60 TID, team changed him to 80 mg twice daily, continued with the spironolactone dose as presently on, and held the metolazone here in the hospital. (restarted on 12/03) - ordinarily requires high-dose potassium supplementation, normally 40 mEq 5 times daily; we have changed it to 50 mEq 4 times daily. Potassium stable at 3.6 -following creatinine, downtrending, 1.4, baseline 1.2 -weight essentially unchanged -net negative fluid balance just >1000 -continuing to require supplemental oxygen, 2-4 L. Uses BiPAP at night, chronically. - On day of discharge, patient was continued on home doses of diuretics and potassium. Continues to require supplemental oxygen, recommending to continue to wean as able. Will need close outpatient follow-up with PCP for ongoing management. (4) JORDAN (acute kidney injury): Status: Acute Problem details: -history of CKD stage 3 -1.6 pm 12/03 and 12/04 with normal potassium. will decrease the 80mg BID of torsemide back to 60mg TID - Stable on day of discharge, 1.4 (5) Stage 3 chronic kidney disease: Status: Acute Problem details: -monitoring, management as above (6) Hypokalemia due to excessive renal loss of potassium: Status: Acute Problem details: - Resolved prior to discharge -due to being on high-dose diuretics: Torsemide 60 mg 3 times daily, spironolactone 37.5 mg 2 times daily, metolazone 5 mg once daily - ordinarily on potassium 40 mEq 5 times daily; 12/01 changed to 50 mg 4 times daily in-hospital, plus gave extra dose of 50 mEq of potassium orally, and additional IV potassium supplements. - monitor serum potassium level - 12/02 K+ level low at 3.3, thus ordered additional IV K+. improved to 3.6 on discharge (7) Fever: Status: Acute Problem details: - resolved prior to discharge, remaining afebrile - Tm 100.3? F 11/30/2022, afebrile since - no obvious source, aside from acute trauma, CLL - no pulmonary symptoms and retrospectively no obvious infiltrate on chest x-ray obtained on 11/30/2022 - negative urinalysis, urine culture negative to date - blood cultures negative to date - was started on empiric IV ceftriaxone and oral doxycycline after cultures obtained - discontinued prior to discharge (8) Delirium: Status: Acute Problem details: - Resolved prior to discharge - Records indicate history of hospital associated delirium. - Noted to have delirium morning of 12/02/22 - continue with supportive efforts. - Reviewed with his significant other, Freda. She understands and is supportive. - Continue with supportive efforts - no need for additional pharmacological support at this time - Will work with social science manager to establish safe discharge disposition plan - 12/06 episode of decreased responsiveness but easily woken on my exam. Neuro exam unremarkable without focal findings. CT head obtained without significant acute findings. (9) Chronic anticoagulation: Status: Acute Problem details: For atrial fibrillation and history of pulmonary embolism and DVT. Stop apixaban on admission. Anticipate surgery 12/02, thus did not initiate bridging enoxaparin therapy pre-op. - resumed prior to discharge, continuing on apixaban twice daily (10) Pulmonary embolism: Status: Acute Problem details: Developed pulmonary embolism and DVT when he was taken off warfarin for a GI bleed about December 2020. Lifelong anticoagulation recommended. resumed prior to discharge. (11) Paroxysmal atrial fibrillation: Status: Acute Problem details: apixiban restared post-op day 1 (12) Obstructive sleep apnea: Status: Acute Problem details: Continue home BiPAP. (13) Chronic acquired lymphedema: Status: Acute Problem details: Support hose and pneumatic compression (14) Impaired mobility: Status: Acute Problem details: -History of, Was wheelchair-bound in 2021, and over the past 10 months has advanced to walking with a walker and now with a cane. (15) Chronic low back pain: Status: Acute Problem details: He is treated with nerve ablation treatments periodically. Continued on baclofen. encouraged therapy. (16) Obesity: Status: Acute Problem details: Significant weight loss from previous BMI of greater than 40. Current BMI 33.7. (17) CLL (chronic lymphocytic leukemia): Status: Acute Problem details: Not receiving treatment, with total white blood cell count elevated, Uptrending. WBC 91.08 on day of discharge (18) Abnormal chest x-ray: Status: Acute Problem details: - 11/30/2022: Normal cardiac size. Masslike density in the right infrahilar region. Recommend chest CT for further evaluation. Normal pulmonary vasculature. No effusion or pneumothorax. No acute osseous abnormality. - Compared CXR to previous CT scan of chest 10/16/2021 with radiologist: chronic prominent pulmonary artery (mass in RLL of CXR) and chronic hilar adenopathy, R>L. No need to assess any further at this time. CXR consistent with previous CT scan of chest. -outpatient follow-up recommended DS: Summary Hospital Course Hospital Course: 77 year old malepast medical history significant for CLL, atrial fibrillation on chronic anticoagulation with history of pulmonary embolism, CKD stage 3, chronic heart failure with reduced ejection fraction, obesity, diabetes mellitus, chronic low back pain, interstitial lung disease, chronic acquired lymphedema, obstructive sleep apnea was admitted to the medical floor for surgical intervention of a acute hip fracture in setting of febrile illness. Course of care and details as noted above. Remainder of chronic medical comorbidities were monitored and managed with home medications. patient will need ongoing close follow-up and management with PCP. Orthopedic surgery recommendations and follow-up reviewed with patient by surgical team. Status at Discharge Overall status at discharge: patient is not back to baseline Time Spent with Patient Time attestation: Total time spent providing and/or coordinating discharge services: Time spent: Greater than 30 minutes Exam Narrative: Exam Narrative: PHYSICAL EXAM General: Sitting up in a chair, alert, smiling, no acute distress Cardiovascular: RRR, S1S2. Pulmonary: CTA bilaterally without rhonchi, rales, expiratory wheezes. No dyspnea Neurological: Alert, no confusion,cranial nerves intact, no focal findings Extremities: No gross joint deformity or swelling. postoperative dressing in place, dry. Neurovascularly intact Skin: Warm, dry. Const: Vital Signs, click to edit/add: Vital Signs - 24 hr 12/06/22 16:00 12/06/22 16:00 12/06/22 19:00 Temperature 98.1 F Pulse Rate Pulse Rate [Pulse Oximeter] 60 60 Respiratory Rate 16 16 16 Blood Pressure [Ri ght Arm] 108/57 L Pulse Oximetry 92 93 Oxygen Delivery Me thod Nasal Cannula Nasal Cannula Oxygen Flow Rate 2 2 12/06/22 22:11 12/06/22 22:19 12/06/22 22:20 Temperature 98.1 F 98.1 F Pulse Rate 64 Pulse Rate [Pulse Oximeter] 64 Respiratory Rate 16 Blood Pressure [Ri ght Arm] 104/52 L Pulse Oximetry 93 Oxygen Delivery Me thod CPAP Oxygen Flow Rate 4 12/06/22 22:22 12/06/22 22:22 12/07/22 02:21 Temperature 98 F Pulse Rate Pulse Rate [Pulse Oximeter] 64 62 Respiratory Rate 16 16 20 Blood Pressure [Ri ght Arm] 118/51 L Pulse Oximetry 93 92 Oxygen Delivery Me thod CPAP CPAP Oxygen Flow Rate 4 4 12/07/22 06:42 12/07/22 07:32 12/07/22 07:47 Temperature 98 F Pulse Rate 60 Pulse Rate [Pulse Oximeter] Respiratory Rate Blood Pressure [Ri ght Arm] Pulse Oximetry 91 Oxygen Delivery Me thod Nasal Cannula Oxygen Flow Rate 2 12/07/22 07:47 Temperature 98.1 F Pulse Rate Pulse Rate [Pulse Oximeter] 67 Respiratory Rate 18 Blood Pressure [Ri ght Arm] 119/71 Pulse Oximetry 91 Oxygen Delivery Me thod Nasal Cannula Oxygen Flow Rate 2 DS: Data Data Completed and Pending Labs on day of discharge: Labs from last 24 hours 12/07/22 06:10 WBC 91.08 H* RBC 3.46 L Hgb 12.0 L Hct 38.6 MCV 112 H MCH 35 H MCHC 31 L Plt Count 241 Diff Slide Review Acceptable Review Sodium 136 Potassium 3.6 Chloride 86 L Carbon Dioxide 37 H Anion Gap 13 BUN 37 H Creatinine 1.4 Estimated Creat Clear 52.53 Estimated GFR 51 Glucose 117 H Calcium 9.0 Discharge Plan Discharge Disposition: Xfer [facility] Date of Admission: 11/30/22 21:42 Attending Provider on Discharge: Mechelle Castillo Primary Care Provider: Provider,Not a Local Condition: Improved Anticipated Discharge Date/Time: 12/07/22 11:13 Discharge Medications: New allopurinol 100 mg Tablet 300 mg PO DAILY Qty: 30 0RF Effer-K 25 mEq Tablet, Effervescent 50 meq PO QID 30 Days Qty: 240 0RF trazodone 50 mg Tablet 100 mg PO HS Qty: 30 0RF sucralfate 1 gram Tablet 1 g PO TID@0700,1100,1700 Qty: 90 0RF acetaminophen 650 mg Tablet Extended Release 1,300 mg PO Q8H 30 Days Qty: 180 0RF lidocaine 5 % Adhesive Patch,Medicated 1 patch transdermal DAILY Qty: 15 0RF oxycodone 5 mg Tablet 5 mg PO Q4-5H PRN (Reason: Pain) Qty: 15 0RF Continued famotidine 40 mg tablet 40 mg PO HS baclofen 20 mg tablet 20 mg PO BID PRN lorazepam 0.5 mg tablet 0.5 mg PO BID@1729, gabapentin 300 mg capsule 600 mg PO TID@, metolazone 10 mg tablet 5 mg PO DAILY fluticasone propionate 50 mcg/actuation spray,suspension 2 spray INTRANASAL HS Eliquis 5 mg tablet 5 mg PO BID@ Jardiance 10 mg tablet 10 mg PO QAM nystatin [Nyamyc] 100,000 unit/gram powder 1 applic topical 3XD PRN torsemide 20 mg tablet 60 mg PO 3XD sertraline 100 mg tablet 150 mg PO DAILY spironolactone 25 mg tablet 37.5 mg PO BID@ esomeprazole magnesium 40 mg capsule,delayed release(DR/EC) 80 mg PO BID Vitron-C 65 mg iron- 125 mg tablet,delayed release (DR/EC) 1 tab PO DAILY@1800 polyethylene glycol 3350 [Miralax] 17 gram/dose powder 17 g PO DAILY triamcinolone acetonide 0.1 % ointment 1 applic topical BID PRN Discontinued allopurinol 100 mg tablet 100 mg PO TID@, trazodone 50 mg tablet 50 - 100 mg PO HS potassium chloride 40 mEq/15 mL liquid 40 meq PO 5XD acetaminophen 325 mg tablet 650 mg PO BID oxycodone 5 mg tablet 2.5 - 5 mg PO Q6H PRN sucralfate 1 gram tablet 1 g PO AC Rx Instructions: 3X DAILY BEFORE MEALS tramadol 50 mg tablet 50 mg PO HS PRN Discharge Orders: Discharge Order (Routine); Ordered 12/07/22 Ordered By: Mechelle Castillo Additional Instructions: Continue diuresis with oral regimen, monitoring with daily weights. Recommend outpatient follow-up for ongoing management, renal function with history of stage III CKD and acute resolved hypokalemia. Abnormal CXR with masslike density right infrahilar region. Recommend outpatient follow-up. Continue home medications for chronic back pain. Patient discussed seeking evaluation at pain clinic. PCP to assist. Caution with narcotics and sedatives post operatively, monitoring for sedation and altered mental status Orthopedic recommendations as below Activity Level: Activity as Tolerated, Up with assist, Weight Bearing as Tolerated and Use Walker Activity Detail: Wound: ? okay to remove dressings one week postop. Only remove dressing if integrity is in question. ? No immersing wound in water; showering okay; light scrub with your hand and body soap, rinse, dab dry ? Sutures are under the skin, will dissolve; allow surgical glue to come off naturally; do not scrub the wound or apply ointments/lotions ? Call our office with any redness that streaks, excessive drainage from the wound, or wound gapping. Ice/Elevate: ? Ice as needed for swelling and discomfort (ice pack); elevate extremity frequently above the heart. Motion/Exercise: ? Weight bear as tolerated operative extremity (walker/cane for ambulation assistance as needed) ? Per PT/OT. ? Straight leg raises daily: 1-2 sets of 10 reps Pain Medications: ? Oral narcotic as prescribed. Wean as tolerated. Additional acetaminophen and ibuprofen as needed. FLAVIA socks: ? Wear for 1 month, remove for 1 hour 3 times per day ? These are frustrating to take on/off, but are important for blood clot prevention for 1 month after surgery Blood Clot Prevention (DVT): ? Medication: apixaban 5mg BID (chronic anticoagulant for the patient) Driving: ? Do not drive while taking narcotic pain medication ? Anticipate 4-6 weeks no driving Dental: ? No elective dental work for 6 months post-op. If there is an urgent/emergent dental need, contact our office for an antibiotic prescription. Smoking/Alcohol: ? Do not smoke; do no drink alcohol especially when taking postoperative oral narcotic medication Seek Care from you Primary Care Provider if you experience the following issues in the postoperative phase and beyond: ? Bacterial infections such as: pneumonia, bacterial skin infection (cellulitis), UTI, high fever, chills unrelated to the operative body part - call your primary care physician urgently for treatment in hopes to protect your health and the metal implant. Referrals: ? PT, OT per patient preference - evaluate treat total hip arthroplasty protocol, anterior approach (gait training, ROM, ADLs) Vaccines: ? No vaccines until 4-6 weeks postop Follow up: ? PA-C visit in 1 week (or once discharged from SNF) ? Ortho surgeon follow-up in 6 weeks; repeat radiographs AP pelvis, cross table lateral operative hip If there are any acute concerns regarding your surgery, please call our orthopedic clinic ([phone]) Discharge Diet: Regular Follow Up Appointments: Provider,Not a Local [Primary Care Provider] - 12/14/22 (Follow up PCP/SNF provider post hospital stay. ) [facility]: [facility] Inst[facility] Discharge Comments: Indwelling Jin to remain in place until improved mobility Wound Care: Per Orthopedic surgery, as above Admit to: SNF Discharge Potential: Fair Length of Stay: <30 days Can use facility standing orders?: Yes Code Status: DNR/DNI TEDs: Bilateral Knee Rehab Potential: Fair Therapy: Physical Therapy and Occupational Therapy Therapy Orders: Evaluate and Treat, Gait Training, Knee ROM and ADL Oxygen: Yes Oxygen Delivery Method: Nasal Cannula Oxygen Flow Rate: 2-4L as needed, continue to wean as able. Bipap overnight Urinary Catheter: Yes Orders are good >30 days: No Signature: GO Marquez, [facility]-C, [facility]
== END 2022-12-07 12:40 | DRG 481 ==
PROVIDERS: Family Medicine; Internal Medicine; Orthopaedic Surgery; Admitting Provider Family Medicine; Visit Provider Family Medicine
PROC: 0QS606Z Reposition Right Upper Femur with Intramedullary Internal Fixation Device, Open Approach (ICD-10-PCS; CPT 27245; principal; 2022-12-02 11:45)
DX: S72.141A Displaced intertrochanteric fracture of right femur, initial encounter for closed fracture (principal); C15.9 Malignant neoplasm of esophagus, unspecified; I13.0 Hypertensive heart and chronic kidney disease with heart failure and stage 1 through stage 4 chronic kidney disease, or unspecified chronic kidney disease; I50.42 Chronic combined systolic (congestive) and diastolic (congestive) heart failure; C91.10 Chronic lymphocytic leukemia of B-cell type not having achieved remission; N17.9 Acute kidney failure, unspecified; N18.30 Chronic kidney disease, stage 3 unspecified; K59.00 Constipation, unspecified; Z86.711 Personal history of pulmonary embolism; G62.9 Polyneuropathy, unspecified; F41.9 Anxiety disorder, unspecified; Z68.33 Body mass index [BMI] 33.0-33.9, adult; R91.8 Other nonspecific abnormal finding of lung field; F17.210 Nicotine dependence, cigarettes, uncomplicated; Z86.718 Personal history of other venous thrombosis and embolism; E11.22 Type 2 diabetes mellitus with diabetic chronic kidney disease; R41.0 Disorientation, unspecified; R50.9 Fever, unspecified; E87.6 Hypokalemia; G47.33 Obstructive sleep apnea (adult) (pediatric); I89.0 Lymphedema, not elsewhere classified; G89.29 Other chronic pain; M54.9 Dorsalgia, unspecified; E66.9 Obesity, unspecified; I48.0 Paroxysmal atrial fibrillation; Z79.01 Long term (current) use of anticoagulants; Z91.81 History of falling
CPT/HCPCS: 01230; 36415; 51701; 70450; 71045; 73552; 76000; 80048; 81003; 81015; 83036; 83735; 83880; 84132; 84145; 84484; 85018; 85025; 85027; 87040; 87086; 93005; 97110; 97162; 97166; 97530; 97535; 99100; A9270; C1713; J0330; J0690; J0696; J1100; J1170; J2250; J2371; J2405; J2704; J3010; J3480; J7050

== ENCOUNTER 2022-12-07 12:22 | Outpatient (CLI) | payer MEDICARE, BC, SELFPAY | END 2022-12-07 12:23 | disposition home or self-care (01) | PROVIDERS: Visit Provider Student in an Organized Health Care Education/Training Program | DX: Z98.890 Other specified postprocedural states (principal) | CPT/HCPCS: A0425; A0428 ==

== ENCOUNTER 2023-02-14 09:38 | Outpatient (CLI) | payer MEDICARE, BC, SELFPAY | END 2023-02-14 09:39 | disposition home or self-care (01) | LOC: AMB 02-17 11:47 | PROVIDERS: PCP Internal Medicine; Visit Provider Emergency Medicine | DX: R53.1 Weakness (principal) | CPT/HCPCS: A0425; A0427 ==

== ENCOUNTER 2023-02-14 10:30 | Inpatient (IN) | payer MEDICARE, BC, SELFPAY ==
[2023-02-14] VITALS (35 sets, daily range): BP systolic 101–126; BP diastolic 53–77; PULSE 58–92; RESP 16–222; TEMP 37.1–38.1; O2SAT 81–96; BMI 30.4; BMI 33.9
--- NOTE | 2023-02-14 11:15 | CRLHL7_ITS ---
For Patients: As a result of the Cures Act, medical imaging exams and procedure reports are released immediately into your electronic medical record. You may view this report before your referring provider. If you have questions, please contact your health care provider. INDICATION: Cough. TECHNIQUE: Chest 1 views. COMPARISON: Radiograph dated 11/30/2022. FINDINGS: Unchanged position of the left subclavian dual chamber pacemaker leads. The cardiomediastinal silhouette is enlarged, unchanged. Atherosclerotic aortic calcifications. Hyperinflated lungs with central pulmonary vascular enlargement and bronchovascular crowding. Patchy right greater than bibasilar airspace opacities are increased. Additionally, the previously identified masslike right infrahilar density appears increased, projecting now over the right heart border. No large pleural effusion. No pneumothorax. No acute osseous abnormality. IMPRESSION: 1. Bibasilar airspace opacities, which may represent atelectasis or pneumonia. 2. Previously identified right infrahilar masslike opacity appears to have increased in size, now adjacent to and partially silhouetting the right heart border. CT of the chest is recommended for further evaluation. Dictated by Leticia Richards MD @ 02/14/2023 12:18:19 PM (Electronically Signed)
--- NOTE | 2023-02-14 11:17 | ED_ITS ---
HPI - General Adult General Chief complaint: Weakness Stated complaint: Weakness Time Seen by Provider: 02/14/23 10:53 History of Present Illness HPI narrative: This 77-year-old male comes in reporting weakness and pain in his right hip. He had a hip fracture that was repaired a couple months ago and was in rehab. Apparently he checked out of the rehab and now is reporting weakness, pain in his right hip, and incontinence of urine. He has a history of smoking with interstitial lung disease. He arrives with oximetry at 86-88% on room air and was placed on 2 L of oxygen by nasal cannula. Related Data Home Medications Medication Instructions Recorded Confirmed apixaban 5 mg tablet (Eliquis) 5 mg PO BID@11/30/22 02/14/23 baclofen 20 mg tablet 20 mg PO BID PRN 11/30/22 02/14/23 empagliflozin 10 mg tablet 10 mg PO DAILY@11/30/22 02/14/23 (Jardiance) esomeprazole magnesium 40 mg 80 mg PO DAILY@11/30/22 02/14/23 capsule,delayed release famotidine 40 mg tablet 40 mg PO HS 11/30/22 02/14/23 gabapentin 300 mg capsule 600 mg PO TID@,,11/30/22 02/14/23 metolazone 10 mg tablet 5 mg PO DAILY@11/30/22 02/14/23 nystatin 100,000 unit/gram topical 1 applic topical TID PRN 11/30/22 02/14/23 powder (Nyamyc) spironolactone 25 mg tablet 37.5 mg PO BID@11/30/22 02/14/23 torsemide 20 mg tablet 60 mg PO TID@,,11/30/22 02/14/23 iron,carbonyl 65 mg-vitamin C 125 1 tab PO DAILY@1700 12/01/22 02/14/23 mg tablet,delayed release (Vitron-C) polyethylene glycol 3350 17 17 g PO DAILY PRN 12/01/22 02/14/23 gram/dose oral powder (Miralax) triamcinolone acetonide 0.1 % 1 applic topical BID PRN 12/01/22 02/14/23 topical ointment acetaminophen 650 mg 1,300 mg PO DAILY@1300 02/14/23 02/14/23 tablet,extended release allopurinol 100 mg tablet 300 mg PO DAILY@10 02/14/23 02/14/23 lidocaine 5 % topical patch 1 patch transdermal DAILY PRN 02/14/23 02/14/23 lorazepam 0.5 mg tablet 0.5 mg PO BID@17,21 02/14/23 02/14/23 potassium bicarbonate-citric acid 50 meq PO 5XD 02/14/23 02/14/23 25 mEq effervescent tablet (Effer-K) sucralfate 1 gram tablet 1 g PO TID@10,17,02/14/23 02/14/23 Previous Rx's Medication Instructions Recorded trazodone 50 mg tablet 100 mg (2 x 50 mg) PO HS #30 tabs 12/07/22 Allergies Allergy/AdvReac Type Severity Reaction Status Date / Time No Known Drug Allergies Allergy Verified 02/14/23 14:05 Review of Systems Status of ROS: Reports: 10 or more systems reviewed and unremarkable except as noted in History and below Narrative: Constitutional: No fevers, no weight gain or loss. Eyes: No discharge. No vision changes. HENT: No congestion, no sore throat, no ear pain. Cardiovascular: No chest pain, no palpitations. Respiratory: No shortness of breath, no wheezes. He states that he has a cough that seems to come and go. Gastrointestinal: No abdominal pain, no vomiting, no diarrhea. Genitourinary: No dysuria, no hematuria. Musculoskeletal: Right hip pain. Skin: No rashes, no pruritis. Neurological: No dizziness, weakness, sensory change, speech change. Endo/Heme/Allergies: No bruising or bleeding. No polydipsia. All other systems reviewed and are negative. [facility] Medical History (Updated 02/14/23 @ 14:58 by Marcos Ko MD) Closed intertrochanteric fracture of right femur ?S72.141A - Displaced intertrochanteric fracture of right femur, initial encounter for closed fracture (ICD-10) Health care directive on file ?Z78.9 - Other specified health status (ICD-10) Intertrochanteric fracture of right femur ?S72.141A - Displaced intertrochanteric fracture of right femur, initial encounter for closed fracture (ICD-10) Abnormal chest x-ray ?R93.89 - Abnormal findings on diagnostic imaging of other specified body structures (ICD-10) Constipation ?K59.00 - Constipation, unspecified (ICD-10) Delirium ?R41.0 - Disorientation, unspecified (ICD-10) DVT (deep venous thrombosis) ?I82.409 - Acute embolism and thrombosis of unspecified deep veins of unspecified lower extremity (ICD-10) Smoking ?F17.200 - Nicotine dependence, unspecified, uncomplicated (ICD-10) Splenic vein thrombosis ?I82.890 - Acute embolism and thrombosis of other specified veins (ICD-10) Portal vein thrombosis ?I81 - Portal vein thrombosis (ICD-10) Chronic anticoagulation ?Z79.01 - buttermaker (current) use of anticoagulants (ICD-10) Gout ?M10.9 - Gout, unspecified (ICD-10) Obstructive sleep apnea ?G47.33 - Obstructive sleep apnea (adult) (pediatric) (ICD-10) Peripheral neuropathy ?G62.9 - Polyneuropathy, unspecified (ICD-10) Chronic acquired lymphedema ?I89.0 - Lymphedema, not elsewhere classified (ICD-10) Right bundle branch block ?I45.10 - Unspecified right bundle-branch block (ICD-10) Pulmonary embolism ?I26.99 - Other pulmonary embolism without acute cor pulmonale (ICD-10) Interstitial lung disease ?J84.9 - Interstitial pulmonary disease, unspecified (ICD-10) History of thyroid nodule ?Z86.39 - Personal history of other endocrine, nutritional and metabolic disease (ICD-10) Impaired mobility ?Z74.09 - Other reduced mobility (ICD-10) At risk for falls ?Z91.81 - History of falling (ICD-10) Chronic low back pain ?M54.50 - Low back pain, unspecified (ICD-10) ?G89.29 - Other chronic pain (ICD-10) Gastrointestinal bleeding, upper ?K92.2 - Gastrointestinal hemorrhage, unspecified (ICD-10) Diabetes mellitus ?E11.9 - Type 2 diabetes mellitus without complications (ICD-10) Anxiety ?F41.9 - Anxiety disorder, unspecified (ICD-10) Obesity ?E66.9 - Obesity, unspecified (ICD-10) Heart failure with reduced ejection fraction ?I50.20 - Unspecified systolic (congestive) heart failure (ICD-10) Pulmonary hypertension ?I27.20 - Pulmonary hypertension, unspecified (ICD-10) Esophageal cancer ?C15.9 - Malignant neoplasm of esophagus, unspecified (ICD-10) CLL (chronic lymphocytic leukemia) ?C91.10 - Chronic lymphocytic leukemia of B-cell type not having achieved remission (ICD-10) Abdominal aortic aneurysm ?I71.40 - Abdominal aortic aneurysm, without rupture, unspecified (ICD-10) Paroxysmal atrial fibrillation ?I48.0 - Paroxysmal atrial fibrillation (ICD-10) Stage 3 chronic kidney disease ?N18.30 - Chronic kidney disease, stage 3 unspecified (ICD-10) Surgical History (Updated 02/14/23 @ 14:58 by Marcos Ko MD) 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) ?Z96.651 - Presence of right artificial knee joint (ICD-10) History of total left knee replacement (07/07/05) ?Z96.652 - Presence of left artificial knee joint (ICD-10) History of arthroscopy of left shoulder (08/01/08) ?Z98.890 - Other specified postprocedural states (ICD-10) History of phacoemulsification of cataract of right eye with intraocular lens implantation ?Z98.41 - Cataract extraction status, right eye (ICD-10) ?Z96.1 - Presence of intraocular lens (ICD-10) History of phacoemulsification of cataract of left eye with intraocular lens implantation ?Z98.42 - Cataract extraction status, left eye (ICD-10) ?Z96.1 - Presence of intraocular lens (ICD-10) Hx of appendectomy ?Z90.49 - Acquired absence of other specified parts of digestive tract (ICD- 10) History of carpal tunnel surgery of right wrist (06/14/18) ?Z98.890 - Other specified postprocedural states (ICD-10) Status post-operative repair of closed hip fracture (12/02/22) ?Z98.890 - Other specified postprocedural states (ICD-10) ?Z87.81 - Personal history of (healed) traumatic fracture (ICD-10) History of cholecystectomy ?Z90.49 - Acquired absence of other specified parts of digestive tract (ICD- 10) History of ventral hernia repair ?Z98.890 - Other specified postprocedural states (ICD-10) ?Z87.19 - Personal history of other diseases of the digestive system (ICD-10) History of splenectomy ?Z90.81 - Acquired absence of spleen (ICD-10) History of permanent cardiac pacemaker placement ?Z95.0 - Presence of cardiac pacemaker (ICD-10) Family History (Updated 11/30/22 @ 22:23 by Roberto Luque MD) Brother Leukemia Social History (Updated 11/30/22 @ 22:25 by Roberto Luque MD) Narrative: Leonardo lives with his significant other, Freda, in their own home on [address] [place] [facility]. rFeda is healthcare power of attorney law clerk and manages hole of his medications. Son Patrice is also healthcare power of attorney law clerk. Code status is DNR. I year ago he was wheelchair-bound. He has advanced walking with a walker and now walking with a cane more recently. He smokes about a pack of cigarettes per week. He drinks a half glass of wine and a beer per day. He uses home BiPAP which his has brought in for him. He plans to go to [place] for the winter. He gets his medical care through the [facility] What is your current living situation?: I presently have a place to live Problems where you live: no known problems Problems where you live details: None In the past 12 months, utilities in danger of being shut off: no In past 12 months, lack of transportation kept you from medical appts, meetings, work, or getting things needed for daily living: no In the past 12 mos, have been you worried that your food would run out before you had money to buy more?: never true In the past 12 mos, the food you bought just didn't last and you didn't have money to buy more?: never true Highest level of school completed/degree received: Bachelor's degree Smoking Status: Current every day smoker What tobacco products do you use: cigarettes Smoking quit date/years: <= 15 years ago Nicotine containing products detail: 1 pack/week How often do you have a drink containing alcohol: 4 or more times a week Alcohol type: beer and wine Alcohol type details: half a glass of wine daily, beer How many standard drinks containing alcohol do you have on a typical day: 1 or 2 How often do you have six or more drinks on one occasion: Never AUDIT-C Alcohol total score: 4 Non-prescribed substance use: denies use Caffeine: Yes (coffee) How often does anyone, including family, friends and others, physically hurt you : never How often does anyone, including family, friends and others, insult or talk down to you: never How often does anyone, including family, friends and others, threaten you with harm: never How often does anyone, including family, friends and others, scream or curse at you: never service: No Exam Narrative: Exam Narrative: Constitutional: Well-developed, well-nourished, no acute distress. HEENT: Normocephalic, atraumatic. Neck: Normal range of motion. Nontender. Supple. Heart: Regular. No murmurs. Normal rate. Intact distal pulses. Lungs: Clear to auscultation. No chest discomfort. No wheezes, rhonchi, or rales. Abdomen: Normal bowel sounds. Nontender. No rebound tenderness. Genitalia: Deferred. Extremities: Pain in his right hip with movement of his right leg. He is unable to raise his right leg off of the bed. Skin: Intact. No rash. Warm. No erythema or pallor. Neurologic: No altered sensation. No weakness. Alert and oriented. Nursing notes and vitals signs are reviewed. Const: Vital Signs, click to edit/add: Vital Signs - 24 hr 02/14/23 10:43 02/14/23 10:52 02/14/23 10:58 Temperature 98.8 F Pulse Rate Pulse Rate [Pulse Oximeter] 60 Respiratory Rate 24 Blood Pressure Blood Pressure [Ri ght Upper Arm] 105/58 L Pulse Oximetry 88 86 L Oxygen Delivery Me thod Nasal Cannula Room Air Room Air Oxygen Flow Rate 02/14/23 11:05 02/14/23 11:07 02/14/23 11:08 Temperature Pulse Rate 61 62 Pulse Rate [Pulse Oximeter] Respiratory Rate Blood Pressure 109/54 L Blood Pressure [Ri ght Upper Arm] Pulse Oximetry 94 92 92 Oxygen Delivery Me thod Nasal Cannula Oxygen Flow Rate 2 02/14/23 11:15 02/14/23 11:32 02/14/23 11:47 Temperature Pulse Rate 71 60 Pulse Rate [Pulse Oximeter] Respiratory Rate Blood Pressure 105/53 L Blood Pressure [Ri ght Upper Arm] Pulse Oximetry 93 93 Oxygen Delivery Me thod Oxygen Flow Rate Course Vital Signs Vital signs: Initial Vital Signs Respiratory Effort Normal, Spontaneous 02/14/23 10:43 Respiratory Depth Normal 02/14/23 10:43 Oxygen Delivery Method Nasal Cannula 02/14/23 10:43 Vital Signs Oxygen Delivery Method Nasal Cannula 02/14/23 10:43 Temperature 98.8 F 02/14/23 10:52 Pulse Rate 60 02/14/23 11:47 Respiratory Rate 24 02/14/23 10:52 Blood Pressure 105/53 L 02/14/23 11:32 Pulse Oximetry 93 02/14/23 11:47 Oxygen Delivery Method Nasal Cannula 02/14/23 11:05 Oxygen Flow Rate 2 02/14/23 11:05 Medical Decision Making MDM Narrative Medical decision making narrative: This patient comes in reporting right hip pain and generalized weakness. He arrives with oximetry at 86-88% on room air. With 2 L nasal cannula oxygen his oximetry appropriately be improved. He is coughing frequently. Chest x-ray shows some suspicion of infiltrate and a CT scan is recommended. Additionally the patient did have a recent surgery so CT with contrast is obtained to rule out blood clot. There is no evidence of thrombosis but it radiologist states that this is suspicious for an aspiration pneumonia. The patient's lactate returns in normal range. Blood cultures are obtained with results pending. The patient did receive an IV dose of Zosyn. I did speak with Dr. Luque who agrees to bring this patient into the hospital for ongoing management. Lab Data Labs: Lab Results 02/14/23 02/14/23 02/14/23 Range/Units 10:59 11:14 11:15 WBC 100.89 H* (4.50-11.00) K/uL RBC 4.38 (4.30-5.90) m/uL Hgb 13.8 (13.5-17.5) gm/dL Hct 45.1 (37.0-53.0) % MCV 103 H (80-100) fL MCH 32 (26-34) pg MCHC 31 L (32-36) gm/dL RDW Coeff of Casey 16.8 H (11.5-15.5) % Plt Count 331 (140-440) K/uL Neut % (Auto) 16.7 L (42.0-72.0) % Lymph % (Auto) 79.0 H (20-44) % [place] % (Auto) 4.1 (0.0-11.0) % Eos % (Auto) 0.0 (0.0-7.0) % Baso % (Auto) 0.0 (0.0-3.0) % Neut # (Auto) 16.80 H (1.7-7.0) K/uL Lymph # (Auto) 79.70 H (0.90-2.90) K/uL [place] # (Auto) 4.10 H (0.00-0.90) K/UL Eos # (Auto) 0.00 (0.00-0.50) K/uL Baso # (Auto) 0.00 (0.00-0.30) K/uL Abs Immat Gran (auto) 0.20 (0.00-0.30) K/uL Imm/Tot Granulo (auto) 0.2 % Sodium 141 (135-149) mmol/L Potassium 3.2 L (3.6-5.1) mmol/L Chloride 100 (96-114) mmol/L Carbon Dioxide 34 H (20-32) mmol/L Anion Gap 7 (7-15) mEq/L BUN 81 H (7-30) mg/dL Creatinine 1.3 (0.5-1.5) mg/dL Estimated Creat Clear 56.57 Estimated GFR 56 ml/min Glucose 155 H (60-115) mg/dL Lactate 1.7 (0.5-1.9) mmol/L Calcium 10.0 (8.4-10.6) mg/dL Urine Color Yellow (Yellow) Urine Appearance Turbid A (Clear) Urine pH 7.0 (5.0-8.5) Ur Specific [place] 1.020 (1.000-1.030) Urine Protein Negative (Negative) Urine Glucose (UA) Negative (Negative) Urine Ketones Negative (Negative) Urine Blood Negative (Negative) Urine Nitrite Negative (Negative) Urine Bilirubin Negative (Negative) Urine Urobilinogen 0.2 (0.2-1.0) Ur Leukocyte Esterase Negative (Negative) Urine RBC 0-2 (0-2) Urine WBC 0-2 (0-5) Ur Squamous Epith Cells None (None-Few) Urine Bacteria Many A (None) SARS-CoV-2 (PCR) Negative SARS-CoV-2 (Negative) Influenza Type A (PCR) Negative PCR FLU A (Negative) Influenza Type B (PCR) Negative PCR FLU B (Negative) RSV (PCR) Negative PCR RSV (Negative) Imaging Data Chest x-ray: Radiologist's impression: 1. Bibasilar airspace opacities, which may represent atelectasis or pneumonia. 2. Previously identified right infrahilar masslike opacity appears to have increased in size, now adjacent to and partially silhouetting the right heart border. CT of the chest is recommended for further evaluation. Discharge Plan Discharge Clinical Impression: CLL (chronic lymphocytic leukemia), Status post-operative repair of closed hip fracture, Pneumonia, Interstitial lung disease Patient Disposition: Admitted As Inpatient Condition: Unchanged Prescriptions: No Action famotidine 40 mg tablet 40 mg PO HS baclofen 20 mg tablet 20 mg PO BID PRN gabapentin 300 mg capsule 600 mg PO TID@10,17,21 metolazone 10 mg tablet 5 mg PO DAILY@07 Eliquis 5 mg tablet 5 mg PO BID@10,17 Jardiance 10 mg tablet 10 mg PO DAILY@07 nystatin [Nyamyc] 100,000 unit/gram powder 1 applic topical TID PRN torsemide 20 mg tablet 60 mg PO TID@10,13,17 spironolactone 25 mg tablet 37.5 mg PO BID@10,17 esomeprazole magnesium 40 mg capsule,delayed release(DR/EC) 80 mg PO DAILY@10 Vitron-C 65 mg iron- 125 mg tablet,delayed release (DR/EC) 1 tab PO DAILY@1700 polyethylene glycol 3350 [Miralax] 17 gram/dose powder 17 g PO DAILY PRN triamcinolone acetonide 0.1 % ointment 1 applic topical BID PRN trazodone 50 mg Tablet 100 mg PO HS Qty: 30 0RF sucralfate 1 gram Tablet 1 g PO TID@10,17,21 allopurinol 100 mg Tablet 300 mg PO DAILY@10 acetaminophen 650 mg Tablet Extended Release 1,300 mg PO DAILY@1300 lorazepam 0.5 mg tablet 0.5 mg PO BID@17,21 lidocaine 5 % Adhesive Patch,Medicated 1 patch transdermal DAILY PRN Effer-K 25 mEq Tablet, Effervescent 50 meq PO 5XD Rx Instructions: 0700,1000,1300,1700,2100 Follow Up/Referrals: Provider,Not a Local [Referring] -
[2023-02-14 11:51] LABS: Lactate* 1.7 mmol/L (0.5-1.9)
[2023-02-14 11:55] LABS: Hematocrit 45.1 % (37.0-53.0); Hemoglobin* 13.8 gm/dL (13.5-17.5); Immature Granulocytes Pct Auto 0.2 %; Mean Corpuscular HGB Conc 31 gm/dL (32-36); Mean Corpuscular Hemoglobin 32 pg (26-34); Mean Corpuscular Volume 103 fL (80-100); Monocytes Percent Auto 4.1 % (0.0-11.0); Neutrophils Percent Auto 16.7 % (42.0-72.0); Platelet Count* 331 K/uL (140-440); RDW Coefficient of Variation % 16.8 % (11.5-15.5); Red Blood Count 4.38 m/uL (4.30-5.90)
[2023-02-14 11:55] LABS: PCR FLU A Negative PCR FLU A (Negative); PCR FLU B Negative PCR FLU B (Negative); PCR RSV Negative PCR RSV (Negative); SARS PCR* Negative SARS-CoV-2 (Negative)
[2023-02-14 11:58] LABS: Appearance Urine Turbid (Clear); Bilirubin Urine Negative (Negative); Color Urine Yellow (Yellow); Glucose Urine Negative (Negative)
[2023-02-14 11:59] LABS: Blood Urine Negative (Negative); Ketones Urine Negative (Negative); Leukocyte Esterase Urine Negative (Negative); Nitrite Urine Negative (Negative); Protein Urine Negative (Negative); RBC Urine 0-2 (0-2); Urobilinogen Urine 0.2 (0.2-1.0); WBC Urine 0-2 (0-5)
[2023-02-14 12:00] LABS: Bacteria Urine Many
[2023-02-14 12:13] LABS: Chloride* 100 mmol/L (96-114); Potassium* 3.2 mmol/L (3.6-5.1); Sodium* 141 mmol/L (135-149)
[2023-02-14 12:16] LABS: Anion Gap 7 mEq/L (7-15); Blood Urea Nitrogen* 81 mg/dL (7-30); Carbon Dioxide* 34 mmol/L (20-32); Creatinine* 1.3 mg/dL (0.5-1.5); Est. Creatinine Clearance* 56.57; Estimated Glomerular Filt Rate 56 ml/min; Glucose* 155 mg/dL (60-115)
[2023-02-14 12:23] LABS: Slide Review Reflex No; White Blood Count* 100.89 K/uL (4.50-11.00)
--- NOTE | 2023-02-14 13:19 | CRLHL7_ITS ---
For Patients: As a result of the Century Cures Act, medical imaging exams and procedure reports are released immediately into your electronic medical record. You may view this report before your referring provider. If you have questions, please contact your health care provider. INDICATION: Shortness of breath, cough. TECHNIQUE: CT chest PE was acquired with 95 cc Isovue 370 IV contrast. COMPARISON: None. FINDINGS: Heart and vasculature: Contrast opacification of the pulmonary arterial tree is adequate. Limited study secondary to motion artifact. Tiny ill-defined hypodensity in the left upper lobe segmental pulmonary arteries possibly artifactual in nature (series 4/image 114) in this motion degraded study. Otherwise, no sign of definite pulmonary embolism. Heart size is normal. Coronary artery calcifications. Thoracic aorta and pulmonary artery are normal in caliber. Lungs and pleura: Right greater than left basilar consolidation with peribronchial thickening and mucous plugging. No pleural effusions, pleural thickening, or pneumothorax. Lymph nodes/mediastinum: Enlarged heterogeneous thyroid gland. Fluid in the esophagus. Mildly enlarged mediastinal and right hilar lymph nodes. Chest wall: No masses. Upper abdomen: No acute or significant findings. Bones: Unremarkable for age. IMPRESSION: Tiny ill-defined hyperdensity in the distal left upper lobe segmental pulmonary artery, possibly artifactual nature on this motion degraded study. Tiny pulmonary embolism not entirely excluded. Otherwise, no central pulmonary embolism or right heart strain. Right greater than left basilar consolidation with peribronchial thickening and mucous plugging. Constellation of findings are concerning for aspiration pneumonitis with postobstructive pneumonia. Additional fluid in the esophagus which is a contributing factor. Endobronchial lesion is not entirely excluded. Recommend repeat CT after treatment to evaluate for resolution. Patient may benefit from pulmonary consultation for bronchoscopy. Case discussed with Marcos Ko at 2:45 p.m. on 02/14/2023. Please note that all CT scans at this facility use dose modulation, iterative reconstruction, and/or weight-based dosing when appropriate to reduce radiation dose to as low as reasonably achievable. Dictated by Levi Copeland MD @ 02/14/2023 2:47:24 PM (Electronically Signed)
[2023-02-14] MEDS: 0.9 % SODIUM CHLORIDE 1000 ml 1,000 ML IV (14:00)
[2023-02-14] MEDS: GABAPENTIN 300 MG CAPSULE PO (14:59)
[2023-02-14] MEDS: ACETAMINOPHEN 500 MG TABLET 1000 MG PO (14:59)
[2023-02-14] MEDS: LORazepam 0.5 MG TABLET PO (14:59)
[2023-02-14] MEDS: PIPERACILLIN/TAZOBACTAM 3.375 GM in 0.9 % SODIUM CHLORIDE Mini-bag 100 ML IVPB ×2 (14:59→22:15)
[2023-02-14] MEDS: BACLOFEN 10 MG TABLET 20 MG PO (14:59)
--- NOTE | 2023-02-14 15:32 | XR_ITS ---
Patient: MARIELLE MARCELINO Facility:?[facility] Patient ID:?[id number] Site Patient ID:?[id number]. Site :?[id number] Study:?XRay-Extremity Right 3V ELBOW-02/14/2023 4:19:14 PM Ordering Physician:?Rebel Mejia Final Report: Indication: Right-sided weakness Comparison: None available. Technique: AP, lateral, and oblique views right elbow were obtained. Findings: There is no displaced fracture or dislocation. Degenerative changes of the ulnotrochlear joint or appreciated with marginal osteophyte formation. There is mild to moderate olecranon soft tissue swelling. Impression: [id number] olecranon soft tissue swelling. No evidence of displaced fracture. Dictated by Uziel Cruz MD @ 02/14/2023 4:42:00 PM Signed by:?Uziel Cruz MD @02/14/2023 4:42:00 PM (Electronic Signature)
--- NOTE | 2023-02-14 15:32 | CRLHL7_ITS ---
For Patients: As a result of the Cures Act, medical imaging exams and procedure reports are released immediately into your electronic medical record. You may view this report before your referring provider. If you have questions, please contact your health care provider. Indication: followup fracture Technique: AP and lateral views of the right femur Comparison: Femur radiographs on January 03 2023 Findings/Impression: Postsurgical changes of ORIF of a right femoral intertrochanteric fracture. There is similar appearing alignment of the lateral fracture segment, which is displaced by approximately 2 centimeters. There is no evidence of hardware related complication. Postsurgical changes of right total knee arthroplasty, without apparent complication. No suspicious osseous lesions. The soft tissues are within normal limits. Dictated by Jhoan Grant MD @ 02/14/2023 4:34:41 PM (Electronically Signed)
--- NOTE | 2023-02-14 15:34 | CRLHL7_ITS ---
For Patients: As a result of the Cures Act, medical imaging exams and procedure reports are released immediately into your electronic medical record. You may view this report before your referring provider. If you have questions, please contact your health care provider. Indication: Right-sided weakness Comparison: None available. Technique: AP, lateral, and oblique views right elbow were obtained. Findings: There is no displaced fracture or dislocation. Degenerative changes of the ulnotrochlear joint or appreciated with marginal osteophyte formation. There is mild to moderate olecranon soft tissue swelling. Impression: [id number] olecranon soft tissue swelling. No evidence of displaced fracture. Dictated by Uziel Cruz MD @ 02/14/2023 4:42:00 PM (Electronically Signed)
[2023-02-14 16:19] LABS: Magnesium* 2.5 mg/dL (1.5-2.6)
[2023-02-14 16:31] LABS: Troponin I* 0.04 ng/mL (0.01-0.04)
[2023-02-14 16:51] LABS: NT Pro B Type NatriureticPept* 2070 pg/mL
[2023-02-14] MEDS: LACTATED RINGERS 500 ML 500 ML IV (17:27)
--- NOTE | 2023-02-14 17:54 | PM.IMHP1 ---
Hospitalist- H&P: DARYL History of Present Illness Date Seen: 02/14/23 Chief complaint: Weakness Narrative: Juan Mayers is a 77 year old male with heart failure, CLL, recent hip fracture, diabetes mellitus, history of pulmonary embolism, atrial fibrillation with anticoagulation admitted to the hospital for acute onset of weakness, urinary incontinence, fever. 77-year-old male admitted to [facility] 11/30/2022 after a fall at home sustaining a right femur fracture. He underwent ORIF at [facility] and was discharged to [facility] in [place] for rehabilitation. He was there until January 28 when he left there to return home with his significant other against medical advice. He was told that he was not yet ready to be independent with his significant other caring for him. He has had some progressive decline since January 28. His significant other is assisted by a friend in providing his care. He stands and walks with a walker with standby assist of 2. The use in EZ stand for transfers. There able to give him a shower every day. Over these past couple weeks the significant other reports that he has had some decline in his mobility at home. He had home physical therapy however and 3 days ago he was able to walk with a walker and physical therapist 30 ft. He acutely got worse today. He was too weak to stand or walk at all. He was noted to have a fever at home. In the last day he has been incontinent of urine which is a new problem for him. He gets an urge to void but is unable to control it before he has an incontinent episode. He has been sleeping a lot today as well. Prior to his hip fracture in November he was ambulating with a cane. A year ago he was wheelchair-bound but was able to get strong enough to walk with a cane prior to his hip fracture. Review of Systems Narrative: He has been complaining of right elbow pain and also right hip pain recently. No known new injury to either the hip or the elbow. Today he has stopped using his right arm secondary to his report of elbow pain. Three days ago he did use it to walk with a walker [facility] Medical History (Updated 02/14/23 @ 18:38 by Roberto Luque MD) Chronic pain ?G89.29 - Other chronic pain (ICD-10) Cognitive impairment ?R41.89 - Other symptoms and signs involving cognitive functions and awareness (ICD-10) Polypharmacy ?Z79.899 - Other termite treater helper (current) drug therapy (ICD-10) Closed intertrochanteric fracture of right femur ?S72.141A - Displaced intertrochanteric fracture of right femur, initial encounter for closed fracture (ICD-10) Health care directive on file ?Z78.9 - Other specified health status (ICD-10) Intertrochanteric fracture of right femur ?S72.141A - Displaced intertrochanteric fracture of right femur, initial encounter for closed fracture (ICD-10) Abnormal chest x-ray ?R93.89 - Abnormal findings on diagnostic imaging of other specified body structures (ICD-10) Constipation ?K59.00 - Constipation, unspecified (ICD-10) Delirium ?R41.0 - Disorientation, unspecified (ICD-10) DVT (deep venous thrombosis) ?I82.409 - Acute embolism and thrombosis of unspecified deep veins of unspecified lower extremity (ICD-10) Smoking ?F17.200 - Nicotine dependence, unspecified, uncomplicated (ICD-10) Splenic vein thrombosis ?I82.890 - Acute embolism and thrombosis of other specified veins (ICD-10) Portal vein thrombosis ?I81 - Portal vein thrombosis (ICD-10) Chronic anticoagulation ?Z79.01 - computer terminal operator (current) use of anticoagulants (ICD-10) Gout ?M10.9 - Gout, unspecified (ICD-10) Obstructive sleep apnea ?G47.33 - Obstructive sleep apnea (adult) (pediatric) (ICD-10) Peripheral neuropathy ?G62.9 - Polyneuropathy, unspecified (ICD-10) Chronic acquired lymphedema ?I89.0 - Lymphedema, not elsewhere classified (ICD-10) Right bundle branch block ?I45.10 - Unspecified right bundle-branch block (ICD-10) Pulmonary embolism ?I26.99 - Other pulmonary embolism without acute cor pulmonale (ICD-10) Interstitial lung disease ?J84.9 - Interstitial pulmonary disease, unspecified (ICD-10) History of thyroid nodule ?Z86.39 - Personal history of other endocrine, nutritional and metabolic disease (ICD-10) Impaired mobility ?Z74.09 - Other reduced mobility (ICD-10) At risk for falls ?Z91.81 - History of falling (ICD-10) Chronic low back pain ?M54.50 - Low back pain, unspecified (ICD-10) ?G89.29 - Other chronic pain (ICD-10) Gastrointestinal bleeding, upper ?K92.2 - Gastrointestinal hemorrhage, unspecified (ICD-10) Diabetes mellitus ?E11.9 - Type 2 diabetes mellitus without complications (ICD-10) Anxiety ?F41.9 - Anxiety disorder, unspecified (ICD-10) Obesity ?E66.9 - Obesity, unspecified (ICD-10) Heart failure with reduced ejection fraction ?I50.20 - Unspecified systolic (congestive) heart failure (ICD-10) Pulmonary hypertension ?I27.20 - Pulmonary hypertension, unspecified (ICD-10) Esophageal cancer ?C15.9 - Malignant neoplasm of esophagus, unspecified (ICD-10) CLL (chronic lymphocytic leukemia) ?C91.10 - Chronic lymphocytic leukemia of B-cell type not having achieved remission (ICD-10) Abdominal aortic aneurysm ?I71.40 - Abdominal aortic aneurysm, without rupture, unspecified (ICD-10) Paroxysmal atrial fibrillation ?I48.0 - Paroxysmal atrial fibrillation (ICD-10) Stage 3 chronic kidney disease ?N18.30 - Chronic kidney disease, stage 3 unspecified (ICD-10) Surgical History (Updated 02/14/23 @ 18:34 by Roberto Luque MD) 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) ?Z96.651 - Presence of right artificial knee joint (ICD-10) History of total left knee replacement (07/07/05) ?Z96.652 - Presence of left artificial knee joint (ICD-10) History of arthroscopy of left shoulder (08/01/08) ?Z98.890 - Other specified postprocedural states (ICD-10) History of phacoemulsification of cataract of right eye with intraocular lens implantation ?Z98.41 - Cataract extraction status, right eye (ICD-10) ?Z96.1 - Presence of intraocular lens (ICD-10) History of phacoemulsification of cataract of left eye with intraocular lens implantation ?Z98.42 - Cataract extraction status, left eye (ICD-10) ?Z96.1 - Presence of intraocular lens (ICD-10) Hx of appendectomy ?Z90.49 - Acquired absence of other specified parts of digestive tract (ICD-10) History of carpal tunnel surgery of right wrist (06/14/18) ?Z98.890 - Other specified postprocedural states (ICD-10) Status post-operative repair of closed hip fracture (12/02/22) ?Z98.890 - Other specified postprocedural states (ICD-10) ?Z87.81 - Personal history of (healed) traumatic fracture (ICD-10) History of cholecystectomy ?Z90.49 - Acquired absence of other specified parts of digestive tract (ICD-10) History of ventral hernia repair ?Z98.890 - Other specified postprocedural states (ICD-10) ?Z87.19 - Personal history of other diseases of the digestive system (ICD-10) History of splenectomy ?Z90.81 - Acquired absence of spleen (ICD-10) History of permanent cardiac pacemaker placement ?Z95.0 - Presence of cardiac pacemaker (ICD-10) Family History Brother Leukemia Social History (Updated 02/14/23 @ 18:11 by Roberto Luque MD) Narrative: Leonardo lives with his significant other, Freda, in their own [place] on [address] [place] [facility]. Freda is healthcare power of community action worker and manages hole of his medications. Son Patrice is also healthcare power of community action worker. Code status is DNR/DNI. This is reviewed and reconfirmed with the patient and Freda today. I year ago he was wheelchair-bound. He has advanced walking with a walker and now walking with a cane more recently. He previously smoked a pack of cigarettes a day. Since going to the longterm he quit smoking and then once he got home has been smoking about 1 cigarette a day. He has been drinking 1 or 2 beers a day as well. He uses home BiPAP which his has brought in for him. He plans to go to [place] for the winter. He gets his medical care through the [facility] What is your current living situation?: I presently have a place to live Problems where you live: no known problems Problems where you live details: None In the past 12 months, utilities in danger of being shut off: no In past 12 months, lack of transportation kept you from medical appts, meetings, work, or getting things needed for daily living: no In the past 12 mos, have been you worried that your food would run out before you had money to buy more?: never true In the past 12 mos, the food you bought just didn't last and you didn't have money to buy more?: never true Highest level of school completed/degree received: Bachelor's degree Smoking Status: Current every day smoker What tobacco products do you use: cigarettes Smoking quit date/years: <= 15 years ago Nicotine containing products detail: 1 pack/week How often do you have a drink containing alcohol: 4 or more times a week Alcohol type: beer and wine Alcohol type details: half a glass of wine daily, beer How many standard drinks containing alcohol do you have on a typical day: 1 or 2 How often do you have six or more drinks on one occasion: Never AUDIT-C Alcohol total score: 4 Non-prescribed substance use: denies use Caffeine: Yes (coffee) How often does anyone, including family, friends and others, physically hurt you: never How often does anyone, including family, friends and others, insult or talk down to you: never How often does anyone, including family, friends and others, threaten you with harm: never How often does anyone, including family, friends and others, scream or curse at you: never service: No Meds Home Medications and Allergies Home Medications Medication Instructions Recorded Confirmed Type apixaban 5 mg tablet (Eliquis) 5 mg PO BID@11/30/22 02/14/23 History baclofen 20 mg tablet 20 mg PO BID PRN 11/30/22 02/14/23 History empagliflozin 10 mg tablet 10 mg PO DAILY@11/30/22 02/14/23 History (Jardiance) esomeprazole magnesium 40 mg 80 mg PO DAILY@11/30/22 02/14/23 History capsule,delayed release famotidine 40 mg tablet 40 mg PO HS 11/30/22 02/14/23 History gabapentin 300 mg capsule 600 mg PO TID@,,11/30/22 02/14/23 History metolazone 10 mg tablet 5 mg PO DAILY@11/30/22 02/14/23 History nystatin 100,000 unit/gram topical 1 applic topical TID PRN 11/30/22 02/14/23 History powder (Nyamyc) spironolactone 25 mg tablet 37.5 mg PO BID@10,11/30/22 02/14/23 History torsemide 20 mg tablet 60 mg PO TID@10,,11/30/22 02/14/23 History iron,carbonyl 65 mg-vitamin C 125 1 tab PO DAILY@1700 12/01/22 02/14/23 History mg tablet,delayed release (Vitron-C) polyethylene glycol 3350 17 17 g PO DAILY PRN 12/01/22 02/14/23 History gram/dose oral powder (Miralax) triamcinolone acetonide 0.1 % 1 applic topical BID PRN 12/01/22 02/14/23 History topical ointment acetaminophen 650 mg 1,300 mg PO DAILY@1300 02/14/23 02/14/23 History tablet,extended release allopurinol 100 mg tablet 300 mg PO DAILY@10 02/14/23 02/14/23 History lidocaine 5 % topical patch 1 patch transdermal DAILY PRN 02/14/23 02/14/23 History lorazepam 0.5 mg tablet 0.5 mg PO BID@,02/14/23 02/14/23 History potassium bicarbonate-citric acid 50 meq PO 5XD 02/14/23 02/14/23 History 25 mEq effervescent tablet (Effer-K) sucralfate 1 gram tablet 1 g PO TID@10,,02/14/23 02/14/23 History Allergies Allergy/AdvReac Type Severity Reaction Status Date / Time No Known Drug Allergies Allergy Verified 02/14/23 14:05 Exam Narrative: Exam Narrative: He is awake and lying in bed. He is quite slow to respond to questions. He is oriented to being in the hospital but unable to report why he is here or what symptoms he might be having that led Freda to call the ambulance. Unable to give significant history about current symptoms or recent health events. These are obtained from Freda. Head is without apparent trauma. Eyes are normal. Sclerae nonicteric. His no obvious facial asymmetry. He is unable to follow commands to test extraocular movements or visual maria. Intermittently his speech is fluent and then his speech becomes garbled and nonsensical at times. Oropharynx with dry mucous membranes and otherwise unremarkable. Neck is supple without mass or adenopathy. Respirations with diminished breath sounds at the right base. He has no marked wheezing. Fair air exchange in all lung maria except the right base. Cardiovascular: S1, S2, relatively regular rhythm. Abdomen: Bowel sounds active. Abdomen is soft without tenderness or mass. External genitalia normal. Lower extremities with compression stockings on. Trace edema. He is unable to do [id number] testing with either hand. He does not even attempted with his right hand and attempts unsuccessfully with his left. He is able to lift his right arm to 90? of forward flexion with minimal discomfort. He can move his right elbow through range of motion of approximately 10? to 90? of flexion limited by pain. Palpation over the elbow is diffusely tender without focal tenderness, erythema, evidence of trauma. Supination and pronation appear to be relatively normal but weak. Wrist flexion extension in the right wrist and finger extension and conventional underwriter strength mildly weak on the right compared to the left. Intact radial pulse on the right. He poorly tolerates to strength testing at the elbow and shoulder on the right secondary to elbow pain. Left upper extremity has relatively normal motion and strength. He has difficulties following commands for strength testing and unable to do [id number] with his left upper extremity. Right lower extremity testing he is unable to lift his right heel off the bed. Knee tolerates gentle range of motion in the right hip internal external rotation and slight flexion and right knee but limited by pain. Left lower extremity has mild diffuse weakness. Bilateral lower extremities with intact pulses. Requires assist of 2 to sit up in bed. Reports fairly severe low back pain associated with this. Const: Vital Signs, click to edit/add: Vital Signs - 24 hr 02/14/23 10:43 02/14/23 10:52 02/14/23 10:58 Temperature 98.8 F Pulse Rate Pulse Rate [Pulse Oximeter] 60 Respiratory Rate 24 Blood Pressure Blood Pressure [Ri ght Upper Arm] 105/58 L Pulse Oximetry 88 86 L Oxygen Delivery Me thod Nasal Cannula Room Air Room Air Oxygen Flow Rate Fraction of Inspir ed Oxygen 02/14/23 11:05 02/14/23 11:07 02/14/23 11:08 Temperature Pulse Rate 61 62 Pulse Rate [Pulse Oximeter] Respiratory Rate Blood Pressure 109/54 L Blood Pressure [Ri ght Upper Arm] Pulse Oximetry 94 92 92 Oxygen Delivery Me thod Nasal Cannula Oxygen Flow Rate 2 Fraction of Inspir ed Oxygen 02/14/23 11:15 02/14/23 11:32 02/14/23 11:47 Temperature Pulse Rate 71 60 Pulse Rate [Pulse Oximeter] Respiratory Rate Blood Pressure 105/53 L Blood Pressure [Ri ght Upper Arm] Pulse Oximetry 93 93 Oxygen Delivery Me thod Oxygen Flow Rate Fraction of Inspir ed Oxygen 02/14/23 12:02 02/14/23 12:14 02/14/23 12:15 Temperature Pulse Rate 92 62 Pulse Rate [Pulse Oximeter] Respiratory Rate Blood Pressure 107/63 Blood Pressure [Ri ght Upper Arm] Pulse Oximetry 94 96 Oxygen Delivery Me thod Oxygen Flow Rate Fraction of Inspir ed Oxygen 02/14/23 12:32 02/14/23 13:02 02/14/23 13:05 Temperature Pulse Rate 60 Pulse Rate [Pulse Oximeter] Respiratory Rate Blood Pressure 115/54 L 103/56 L Blood Pressure [Ri ght Upper Arm] Pulse Oximetry 93 Oxygen Delivery Me thod Oxygen Flow Rate Fraction of Inspir ed Oxygen 02/14/23 13:32 02/14/23 13:37 02/14/23 14:02 Temperature Pulse Rate 60 Pulse Rate [Pulse Oximeter] Respiratory Rate Blood Pressure 101/77 108/74 Blood Pressure [Ri ght Upper Arm] Pulse Oximetry 93 Oxygen Delivery Me thod Oxygen Flow Rate Fraction of Inspir ed Oxygen 02/14/23 14:05 02/14/23 14:15 02/14/23 14:30 Temperature Pulse Rate 62 60 85 Pulse Rate [Pulse Oximeter] Respiratory Rate Blood Pressure Blood Pressure [Ri ght Upper Arm] Pulse Oximetry 89 92 88 Oxygen Delivery Me thod Oxygen Flow Rate Fraction of Inspir ed Oxygen 02/14/23 14:32 02/14/23 14:45 02/14/23 15:00 Temperature Pulse Rate 70 60 63 Pulse Rate [Pulse Oximeter] Respiratory Rate Blood Pressure 121/61 Blood Pressure [Ri ght Upper Arm] Pulse Oximetry 87 L 93 93 Oxygen Delivery Me thod Oxygen Flow Rate Fraction of Inspir ed Oxygen 02/14/23 15:02 02/14/23 15:15 02/14/23 15:30 Temperature Pulse Rate 61 82 60 Pulse Rate [Pulse Oximeter] Respiratory Rate Blood Pressure 115/54 L Blood Pressure [Ri ght Upper Arm] Pulse Oximetry 92 93 93 Oxygen Delivery Me thod Oxygen Flow Rate Fraction of Inspir ed Oxygen 02/14/23 17:21 02/14/23 17:22 Temperature Pulse Rate Pulse Rate [Pulse Oximeter] Respiratory Rate Blood Pressure Blood Pressure [Ri ght Upper Arm] Pulse Oximetry 92 Oxygen Delivery Me thod Oxygen Flow Rate 30 Fraction of Inspir ed Oxygen 55 Documenting provider has reviewed patient's vital signs: yes Hospitalist - H&P: Result Labs Labs: Short CBC 02/14/23 Range/Units 11:15 WBC 100.89 H* (4.50-11.00) K/uL Hgb 13.8 (13.5-17.5) gm/dL Hct 45.1 (37.0-53.0) % Plt Count 331 (140-440) K/uL BMP 02/14/23 11:15 Sodium 141 Potassium 3.2 L Chloride 100 Carbon Dioxide 34 H BUN 81 H Creatinine 1.3 Glucose 155 H Calcium 10.0 Cardiac Enzymes 02/14/23 Range/Units 11:15 Troponin I 0.04 (0.01-0.04) ng/mL Urine 02/14/23 Range/Units 10:59 Urine Color Yellow (Yellow) Urine Appearance Turbid A (Clear) Urine pH 7.0 (5.0-8.5) Ur Specific [place] 1.020 (1.000-1.030) Urine Protein Negative (Negative) Urine Glucose (UA) Negative (Negative) ECG Attestation: I personally reviewed and interpreted this ECG as follows: (Pacemaker) Imaging CT scan - chest: Radiologist's impression: INDICATION: Shortness of breath, cough. TECHNIQUE: CT chest PE was acquired with 95 cc Isovue 370 IV contrast. COMPARISON: None. FINDINGS: Heart and vasculature: Contrast opacification of the pulmonary arterial tree is adequate. Limited study secondary to motion artifact. Tiny ill-defined hypodensity in the left upper lobe segmental pulmonary arteries possibly artifactual in nature (series 4/image 114) in this motion degraded study. Otherwise, no sign of definite pulmonary embolism. Heart size is normal. Coronary artery calcifications. Thoracic aorta and pulmonary artery are normal in caliber. Lungs and pleura: Right greater than left basilar consolidation with peribronchial thickening and mucous plugging. No pleural effusions, pleural thickening, or pneumothorax. Lymph nodes/mediastinum: Enlarged heterogeneous thyroid gland. Fluid in the esophagus. Mildly enlarged mediastinal and right hilar lymph nodes. Chest wall: No masses. Upper abdomen: No acute or significant findings. Bones: Unremarkable for age. IMPRESSION: Tiny ill-defined hyperdensity in the distal left upper lobe segmental pulmonary artery, possibly artifactual nature on this motion degraded study. Tiny pulmonary embolism not entirely excluded. Otherwise, no central pulmonary embolism or right heart strain. Right greater than left basilar consolidation with peribronchial thickening and mucous plugging. Constellation of findings are concerning for aspiration pneumonitis with postobstructive pneumonia. Additional fluid in the esophagus which is a contributing factor. Endobronchial lesion is not entirely excluded. Recommend repeat CT after treatment to evaluate for resolution. Patient may benefit from pulmonary consultation for bronchoscopy. CT scan - head: Radiologist's impression: Age-related changes. Evaluation for bleeding somewhat limited due to previous IV contrast administration Right elbow: Radiologist's impression: Impression: [id number]-ia-tqracuzf olecranon soft tissue swelling. No evidence of displaced fracture. Right hip: Radiologist's impression: Postsurgical changes of ORIF of a right femoral intertrochanteric fracture. There is similar appearing alignment of the lateral fracture segment, which is displaced by approximately 2 centimeters. There is no evidence of hardware related complication. Postsurgical changes of right total knee arthroplasty, without apparent complication. No suspicious osseous lesions. The soft tissues are within normal limits. Assessment and Plan Assessment and plan (1) Pneumonia: Problem comment: Likely aspiration pneumonia. Likely cause of his hypoxia. Aspiration may be due to swallowing problems from a stroke. Zosyn and azithromycin. One dose of vancomycin pending MRSA nasal swab. Status: Acute (2) Acute hypoxic respiratory failure: Problem comment: Due to pneumonia. Status: Acute (3) Stroke: Problem comment: Acute onset of right-sided weakness, apraxia and difficulty following instructions for cranial nerve testing, speech and swallowing difficulties suggest stroke. Unable to obtain MRI due to pacemaker. Consider repeat CT scan of the head in a few days depending on clinical course and goals of care. Status: Suspected (4) Altered mental status: Status: Acute (5) Right elbow pain: Problem comment: Cause of this is uncertain. Use of his right arm is very limited secondary to this pain which will interfere with any attempts to get him to stand and hold onto a walker. Status: Acute (6) Status post-operative repair of closed hip fracture: Problem comment: Consult orthopedic surgery regarding right hip pain following right hip fracture surgery in November 2022. Also consult about right elbow pain. Status: Acute (7) Diabetes mellitus: Problem comment: Appears to be well controlled Status: Acute (8) Anxiety: Problem comment: On chronic lorazepam and sertraline Status: Acute (9) Polypharmacy: Problem comment: Taking multiple psychoactive medications including gabapentin, lorazepam. Having a lot of pain but opioid medications are relatively contraindicated given his respiratory failure and the presence of these other psychoactive medications Status: Acute (10) Stage 3 chronic kidney disease: Problem comment: Currently at baseline Status: Acute (11) Paroxysmal atrial fibrillation: Problem comment: On apixaban. Pacemaker. Status: Acute (12) CLL (chronic lymphocytic leukemia): Problem comment: Not receiving treatment, with total white blood cell count elevated, Status: Acute (13) Heart failure with reduced ejection fraction: Problem comment: He is on very high doses of diuretics. At this time he appears to be mildly dry so will give cautious fluid bolus. Plan to resume diuretics tomorrow depending is clinical course. - History of systolic failure. Echocardiogram from 09/14/2022, [place], shows ejection fraction of 56%, right-sided heart pressure of 38 mmHg, severely enlarged left atrium, mild aortic regurgitation and no other significant valvular disease. - ordinarily on high dose of diuretics and monitor closely: Torsemide 60 mg 3 times daily, spironolactone 37.5 mg 2 times daily, metolazone 5 mg once daily. - Torsemide was at 60 TID, team changed him to 80 mg twice daily, continued with the spironolactone dose as presently on, and held the metolazone here in the hospital. (restarted on 12/03) - ordinarily requires high-dose potassium supplementation, normally 40 mEq 5 times daily; we have changed it to 50 mEq 4 times daily. Potassium stable at 3.6 -following creatinine, downtrending, 1.4, baseline 1.2 -weight essentially unchanged -net negative fluid balance just >1000 -continuing to require supplemental oxygen, 2-4 L. Uses BiPAP at night, chronically. - On day of discharge, patient was continued on home doses of diuretics and potassium. Continues to require supplemental oxygen, recommending to continue to wean as able. Will need close outpatient follow-up with PCP for ongoing management. Status: Acute (14) Interstitial lung disease: Status: Acute (15) Cognitive impairment: Problem comment: Significant cognitive impairment today. Possibly due to acute illness with pneumonia as well as underlying dementia. Possibly worse because of stroke. Continue to evaluate and manage neurologic disability Status: Acute (16) Peripheral neuropathy: Problem comment: On gabapentin. Consider tapering Status: Acute (17) Chronic pain: Problem comment: Patient is quite disabled with back pain and now elbow and hip pain. Poor candidate for opioid pain medications due to his respiratory failure, altered mental status, polypharmacy with benzodiazepines and gabapentin. Revisit this issue of goals of care change to focus on palliative care Status: Acute Plan Patient is admitted to the critical care unit for management of hypoxic respiratory failure now on high-flow nasal cannula as well as broad-spectrum antibiotics for pneumonia. Prognosis is guarded with his respiratory failure. Ongoing neurologic assessment as well as functional assessment. Currently very impaired. Goals of care were discussed with patient and significant other. Patient indicates that he does not want her 0 8 life-prolonging treatment and is DNR and DNI. He also verbalizes that if his quality of life is quite poor he would not like aggressive life-prolonging therapy. Given his recent history it appears probable that he will require long-term care home facility placement which he does not want. Recommend ongoing discussion with friend Freda and son Patrice regarding this. Will continue broad-spectrum antibiotic therapy and treatment of pneumonia and hypoxic respiratory failure. Will need close monitoring of heart failure status. Total time spent today is 110 minutes in critical care evaluation and management
[2023-02-14] MEDS: AZITHROMYCIN 500 MG in 0.9 % SODIUM CHLORIDE 250 ml 250 ML 255 MG IVPB (18:13)
[2023-02-14] MEDS: POTASSIUM CHLORIDE 10 MEQ/100 ML PIGGYBACK 100 MEQ IVPB ×3 (18:22→20:29)
[2023-02-14] MEDS: APIXABAN 5 MG TABLET PO (18:37)
[2023-02-14 19:48] LABS: S pneumo Ag Urine S. pneumo Negative (Negative)
[2023-02-14 19:49] LABS: Legionella pneumo Ag Urine L. pneumo Negative (Negative)
--- NOTE | 2023-02-14 20:05 | PC.NURSE ---
PATIENT ADMITTED FROM ED. DROWSY AND SPEECH GARBLED. PATIENT INITIALLY 80%RA AND TACHYPNEIC. PLACED ON 2L O2 WITH SATS 86% AND RESPIRATORY THERAPY INCREASED TO 6L. O2 REMAINED 88-90% AND RT PLACED HIGH FLOW. PATIENT YELLS OUT WITH MOVEMENT. WAS ABLE TO TAKE ELIQUIS CRUSHED IN PUDDING. TEMP INCREASED TO 100.1 BUT UNABLE TO ADMINISTER TYLENOL DUE TO TIME. ICE PACKS APPLIED TO BILATERAL ARM PITS. PATIENT HAS ON OWN TEDS FROM HOME AND MD DAVIDSON TO KEEP ON. PILLOWS PLACED UNDER BILATERAL LE.
[2023-02-14] MEDS: MORPHINE 2 MG/ML inj IVP ×2 (20:48→23:18)
[2023-02-14] MEDS: SODIUM CHLORIDE 0.9 % (FLUSH) 10 ML SYRINGE 5 ML IVF ×2 (20:49→23:18)
[2023-02-15] VITALS (11 sets, daily range): BP systolic 123–132; BP diastolic 60–65; PULSE 59–73; RESP 16–22; TEMP 37.3–38.6; O2SAT 89–92
[2023-02-15] MEDS: ACETAMINOPHEN 650 MG SUPP PR ×2 (00:03→07:44)
[2023-02-15] MEDS: MORPHINE 2 MG/ML inj IVP ×7 (02:04→18:36)
[2023-02-15] MEDS: PIPERACILLIN/TAZOBACTAM 3.375 GM in 0.9 % SODIUM CHLORIDE Mini-bag 100 ML IVPB ×2 (03:15→09:33)
[2023-02-15] MEDS: SODIUM CHLORIDE 0.9 % (FLUSH) 10 ML SYRINGE 5 ML IVF ×3 (04:07→21:02)
--- NOTE | 2023-02-15 07:35 | PC.NURSE ---
END OF SHIFT NOTE: PT OPENS EYES TO NAME. GARBLED RESPONSES. BP'S 120s/80s. TMAX 100.5 TEMPORAL. PRN TYLENOL SUPP EFFECTIVE. COOL WASHCLOTH APPLIED; COLD PACKS IN ARMPITS. RR16-20. SPO2 87-92% ON HIGH FLOW NC. PRN MORPHINE ADMINISTERED FOR PAIN. TURN AND REPOSITIONED WITH PILLOWS FOR OFFLOADING AND COMFORT. ORAL SWABS TO WET MOUTH. LIP MOISTURIZER APPLIED TO DRY LIPS. TELE IS PACED.
[2023-02-15 07:48] LABS: HCO3 VBG 33 mmol/L (21-28); Hematocrit 43.1 % (37.0-53.0); Immature Granulocytes Pct Auto 0.2 %; Lymphocytes Percent Auto 79.9 % (20-44); Mean Corpuscular HGB Conc 30 gm/dL (32-36); Mean Corpuscular Hemoglobin 31 pg (26-34); Mean Corpuscular Volume 104 fL (80-100); Monocytes Percent Auto 3.3 % (0.0-11.0); Neutrophils Percent Auto 16.6 % (42.0-72.0); PCO2 VBG 41 mmHG (40-50); PO2 VBG 67.4 mmHG (25-47); Platelet Count* 331 K/uL (140-440); RDW Coefficient of Variation % 17.2 % (11.5-15.5); Red Blood Count 4.14 m/uL (4.30-5.90); pH VBG 7.515 (7.32-7.43)
[2023-02-15 08:10] LABS: Chloride* 110 mmol/L (96-114)
[2023-02-15 08:11] LABS: Albumin* 3.7 g/dL (3.3-5.0); Sodium* 148 mmol/L (135-149)
[2023-02-15 08:14] LABS: Alanine Aminotransferase* 58 U/L (4-50); Alkaline Phosphatase* 124 U/L (40-150); Anion Gap 6 mEq/L (7-15); Aspartate Amino Transferase* 60 U/L (12-35); Bilirubin Total* 1.2 mg/dL (0.1-1.5); Blood Urea Nitrogen* 62 mg/dL (7-30); Carbon Dioxide* 32 mmol/L (20-32); Creatinine* 0.9 mg/dL (0.5-1.5); Est. Creatinine Clearance* 73.54; Estimated Glomerular Filt Rate 87 ml/min; Glucose* 147 mg/dL (60-115)
[2023-02-15 08:15] LABS: Calcium* 10.2 mg/dL (8.4-10.6)
[2023-02-15 08:30] LABS: Troponin I* 0.06 ng/mL (0.01-0.04)
[2023-02-15 08:31] LABS: Slide Review Reflex Yes; White Blood Count* 93.29 K/uL (4.50-11.00)
[2023-02-15 08:35] LABS: Slide Review Acceptable Review (Acceptable)
--- NOTE | 2023-02-15 09:05 | NUTR.NU ---
RDN with MD consult. Per IDT, patient desires comfort cares. RDN will cancel MD consult.
--- NOTE | 2023-02-15 11:42 | REH.OT ---
OT: Orders received for OT/PT/INDUSTRIAL PSYCHOLOGY TEACHER. Patient had family care conference with MD gleason am, RN reports transitioning to comfort cares and therapy orders being discontinued, including INDUSTRIAL PSYCHOLOGY TEACHER.
--- NOTE | 2023-02-15 13:48 | PM.IMPN1 ---
Progress Note: A&P Assessment and plan (1) Acute hypoxic respiratory failure: Problem details: Due to pneumonia. Status: Acute (2) Multiple organ system failure: Status: Acute (3) Pneumonia: Problem details: 02/14: Likely aspiration pneumonia. Likely cause of his hypoxia. Aspiration may be due to swallowing problems from a stroke. Zosyn and azithromycin. One dose of vancomycin pending MRSA nasal swab. Status: Acute (4) Altered mental status: Status: Acute (5) Stroke: Problem details: 02/14: Acute onset of right-sided weakness, apraxia and difficulty following instructions for cranial nerve testing, speech and swallowing difficulties suggest stroke. Unable to obtain MRI due to pacemaker. Consider repeat CT scan of the head in a few days depending on clinical course and goals of care. Status: Suspected (6) Cognitive impairment: Problem details: 02/14: Significant cognitive impairment today. Possibly due to acute illness with pneumonia as well as underlying dementia. Possibly worse because of stroke. Continue to evaluate and manage neurologic disability Status: Acute (7) Chronic pain: Problem details: 02/14: Patient is quite disabled with back pain and now elbow and hip pain. Poor candidate for opioid pain medications due to his respiratory failure, altered mental status, polypharmacy with benzodiazepines and gabapentin. Revisit this issue of goals of care change to focus on palliative care Status: Acute (8) Polypharmacy: Problem details: 02/14: Taking multiple psychoactive medications including gabapentin, lorazepam. Having a lot of pain but opioid medications are relatively contraindicated given his respiratory failure and the presence of these other psychoactive medications Status: Acute (9) Status post-operative repair of closed hip fracture: Status: Acute (10) Diabetes mellitus: Problem details: Appears to be well controlled Status: Acute (11) Anxiety: Problem details: On chronic lorazepam and sertraline Status: Acute (12) Heart failure with reduced ejection fraction: Problem details: 02/14: He is on very high doses of diuretics. At this time he appears to be mildly dry so will give cautious fluid bolus. Plan to resume diuretics tomorrow depending is clinical course. - History of systolic failure. Echocardiogram from 09/14/2022, [place], shows ejection fraction of 56%, right-sided heart pressure of 38 mmHg, severely enlarged left atrium, mild aortic regurgitation and no other significant valvular disease. - ordinarily on high dose of diuretics and monitor closely: Torsemide 60 mg 3 times daily, spironolactone 37.5 mg 2 times daily, metolazone 5 mg once daily. - Torsemide was at 60 TID, team changed him to 80 mg twice daily, continued with the spironolactone dose as presently on, and held the metolazone here in the hospital. (restarted on 12/03) - ordinarily requires high-dose potassium supplementation, normally 40 mEq 5 times daily; we have changed it to 50 mEq 4 times daily. Potassium stable at 3.6 -following creatinine, downtrending, 1.4, baseline 1.2 -weight essentially unchanged -net negative fluid balance just >1000 -continuing to require supplemental oxygen, 2-4 L. Uses BiPAP at night, chronically. - On day of discharge, patient was continued on home doses of diuretics and potassium. Continues to require supplemental oxygen, recommending to continue to wean as able. Will need close outpatient follow-up with PCP for ongoing management. Status: Acute (13) CLL (chronic lymphocytic leukemia): Problem details: Not receiving treatment, total white blood cell count elevated Status: Acute (14) Paroxysmal atrial fibrillation: Problem details: On apixaban. Pacemaker. Status: Acute (15) Stage 3 chronic kidney disease: Problem details: Currently at baseline Status: Acute (16) Elevated troponin I level: Status: Acute Plan Patient and family desire comfort cares. Without oxygen supplementation, patient's prognosis is very poor, likley days at most. I spoke with family about this. Will keep patient here for comfort cares (fentanyl 12mcg, roxanol, ativan, haldol, hyoscyamine, etc). If not imminent by tommorow, seek reflections or home with hospice. Time Spent With Patient Total time spent: Today I spent 70 minutes rounding on the patient. Greater than 50% included discussing care with the patient and family, team, reviewing data, updating and managing the care plan. Subjective Time Seen by Provider: 07:35 Date Seen: 02/15/23 Interval history: I had two long conversations with Leonardo's family today. When I first saw him, there were about 7 people in the room with him. He woke very briefly, said one word, and then fell back asleep. He did not follow commands at that time. His family and I spoke about his poor prognosis and that he has expressed his wish for no aggressive measures if his prognosis is poor. His family desired to wait until the rest of the family got there around 9:30 a.m. before they made a decision. This was about a 15 minutes discussion. I went back at 10:30 a.m. and the whole family was present. Leonardo woke briefly and was able to listen to some of the conversation. He still spoke minimally. When we were talking about prognosis and I said his prognosis is poor, he said ?0. ? When I asked him if he was saying that his prognosis is 0, he said ?yes.? He also confirmed that he does not want aggressive interventions and would like only comfort cares. His family was all in agreement with that as well. We discussed what comfort cares would look like and that we would stop doing labs, oxygen, antibiotics, and that we would turn off monitors. The patient and his family was comfortable with this. This was a 20 minutes discussion. Exam Narrative: Exam Narrative: General: Appears ill. Warm to the touch. No mottling. Somnolent, arouses on occasion. One word answer, initially not engaging, but did engage some during the later conversation. No pallor. No jaundice. Oropharynx: Clear. Mucous membranes moist. Cardiovascular: Bradycardic, regular. No murmurs, gallops, or rubs. Respiratory: Clear to auscultation bilaterally. No wheezes or crackles. Preop for. Abdomen: Bowel sounds present. Soft, nondistended, nontender. Extremities: No pedal edema. No mottling. Neuro: Takes many tries and a lot of effort to get him to respond. After many tries he did wiggle fingers and toes of both hands and feet, but did not make any effort to lift his right arm or leg. Speech is somewhat slurred and difficult to understand. One word answers. Nursing noted overnight he had word salad. Const: Vital Signs, click to edit/add: Vital Signs - 24 hr 02/14/23 14:02 02/14/23 14:05 02/14/23 14:15 Temperature Pulse Rate 62 60 Pulse Rate [Apical ] Pulse Rate [Pulse Oximeter] Respiratory Rate Blood Pressure 108/74 Blood Pressure [Le ft Arm] Pulse Oximetry 89 92 Oxygen Delivery Me thod Oxygen Flow Rate Fraction of Inspir ed Oxygen 02/14/23 14:30 02/14/23 14:32 02/14/23 14:45 Temperature Pulse Rate 85 70 60 Pulse Rate [Apical ] Pulse Rate [Pulse Oximeter] Respiratory Rate Blood Pressure 121/61 Blood Pressure [Le ft Arm] Pulse Oximetry 88 87 L 93 Oxygen Delivery Me thod Oxygen Flow Rate Fraction of Inspir ed Oxygen 02/14/23 15:00 02/14/23 15:02 02/14/23 15:15 Temperature Pulse Rate 63 61 82 Pulse Rate [Apical ] Pulse Rate [Pulse Oximeter] Respiratory Rate Blood Pressure 115/54 L Blood Pressure [Le ft Arm] Pulse Oximetry 93 92 93 Oxygen Delivery Me thod Oxygen Flow Rate Fraction of Inspir ed Oxygen 02/14/23 15:30 02/14/23 16:00 02/14/23 16:00 Temperature 99.3 F Pulse Rate 60 Pulse Rate [Apical ] 74 Pulse Rate [Pulse Oximeter] Respiratory Rate 222 H 24 Blood Pressure Blood Pressure [Le ft Arm] 111/60 Pulse Oximetry 93 81 L 88 Oxygen Delivery Me thod Room Air Oxygen Flow Rate 6 Fraction of Inspir ed Oxygen 02/14/23 17:20 02/14/23 17:21 02/14/23 17:22 Temperature 99.8 F H Pulse Rate Pulse Rate [Apical ] 66 Pulse Rate [Pulse Oximeter] Respiratory Rate 24 Blood Pressure Blood Pressure [Le ft Arm] 123/59 L Pulse Oximetry 90 92 Oxygen Delivery Me thod Nasal Cannula Oxygen Flow Rate 30 30 Fraction of Inspir ed Oxygen 55 55 02/14/23 17:30 02/14/23 17:55 02/14/23 18:30 Temperature 98.9 F 100.1 F H Pulse Rate 63 Pulse Rate [Apical ] 70 61 Pulse Rate [Pulse Oximeter] Respiratory Rate 22 22 Blood Pressure Blood Pressure [Le ft Arm] 124/62 119/76 Pulse Oximetry 93 91 Oxygen Delivery Me thod Nasal Cannula Nasal Cannula Oxygen Flow Rate 30 30 Fraction of Inspir ed Oxygen 55 55 02/14/23 20:30 02/14/23 20:30 02/14/23 21:13 Temperature 98.8 F Pulse Rate Pulse Rate [Apical ] Pulse Rate [Pulse Oximeter] 76 Respiratory Rate 18 Blood Pressure Blood Pressure [Le ft Arm] 126/65 Pulse Oximetry 92 Oxygen Delivery Me thod Nasal Cannula Oxygen Flow Rate 30 Fraction of Inspir ed Oxygen 55 55 55 02/14/23 22:00 02/14/23 22:00 02/14/23 22:00 Temperature 100.5 F H Pulse Rate 63 Pulse Rate [Apical ] Pulse Rate [Pulse Oximeter] 58 L Respiratory Rate 20 Blood Pressure Blood Pressure [Le ft Arm] 125/59 L Pulse Oximetry 91 91 Oxygen Delivery Me thod Nasal Cannula Oxygen Flow Rate 30 Fraction of Inspir ed Oxygen 55 02/14/23 22:00 02/14/23 22:00 02/15/23 00:00 Temperature Pulse Rate Pulse Rate [Apical ] Pulse Rate [Pulse Oximeter] 64 Respiratory Rate 16 20 Blood Pressure Blood Pressure [Le ft Arm] Pulse Oximetry 91 Oxygen Delivery Me thod Nasal Cannula Oxygen Flow Rate 30 Fraction of Inspir ed Oxygen 55 55 02/15/23 00:00 02/15/23 00:03 02/15/23 02:00 Temperature 99.9 F H 100.9 F H Pulse Rate Pulse Rate [Apical ] Pulse Rate [Pulse Oximeter] 64 Respiratory Rate 16 Blood Pressure Blood Pressure [Le ft Arm] 123/60 Pulse Oximetry 89 Oxygen Delivery Me thod Nasal Cannula Oxygen Flow Rate 30 Fraction of Inspir ed Oxygen 55 55 02/15/23 02:00 02/15/23 04:00 02/15/23 04:00 Temperature 99.1 F 99.1 F Pulse Rate Pulse Rate [Apical ] Pulse Rate [Pulse Oximeter] 73 60 Respiratory Rate 16 20 Blood Pressure Blood Pressure [Le ft Arm] 129/65 126/62 Pulse Oximetry 89 89 Oxygen Delivery Me thod Nasal Cannula Nasal Cannula Oxygen Flow Rate 30 30 Fraction of Inspir ed Oxygen 55 55 55 02/15/23 06:00 02/15/23 06:00 02/15/23 07:40 Temperature 99.5 F Pulse Rate 60 Pulse Rate [Apical ] Pulse Rate [Pulse Oximeter] 61 Respiratory Rate 18 Blood Pressure Blood Pressure [Le ft Arm] 132/65 Pulse Oximetry 90 Oxygen Delivery Me thod High Flow Nasal Ca nnula Oxygen Flow Rate 30 Fraction of Inspir ed Oxygen 55 55 02/15/23 07:40 02/15/23 07:40 02/15/23 07:40 Temperature 100.7 F H Pulse Rate Pulse Rate [Apical ] 60 Pulse Rate [Pulse Oximeter] 60 Respiratory Rate 22 22 Blood Pressure Blood Pressure [Le ft Arm] 127/61 Pulse Oximetry 92 92 92 Oxygen Delivery Me thod High Flow Nasal Ca nnula High Flow Nasal Ca nnula Oxygen Flow Rate 30 30 Fraction of Inspir ed Oxygen 55 55 02/15/23 07:44 02/15/23 08:45 02/15/23 09:00 Temperature 100.7 F H 101.5 F H Pulse Rate Pulse Rate [Apical ] Pulse Rate [Pulse Oximeter] Respiratory Rate Blood Pressure Blood Pressure [Le ft Arm] Pulse Oximetry Oxygen Delivery Me thod Oxygen Flow Rate Fraction of Inspir ed Oxygen 57 02/15/23 09:00 Temperature 101.5 F H Pulse Rate Pulse Rate [Apical ] 59 L Pulse Rate [Pulse Oximeter] 59 L Respiratory Rate 20 Blood Pressure Blood Pressure [Le ft Arm] 131/64 Pulse Oximetry 92 Oxygen Delivery Me thod High Flow Nasal Ca nnula Oxygen Flow Rate 30 Fraction of Inspir ed Oxygen 57 Labs Labs: Laboratory Results - last 24 hr 02/14/23 02/14/23 02/14/23 11:15 15:47 15:56 WBC RBC Hgb Hct MCV MCH MCHC RDW Coeff of [place] Plt Count Neut % (Auto) Lymph % (Auto) [place] % (Auto) Eos % (Auto) Baso % (Auto) Neut # (Auto) Lymph # (Auto) [place] # (Auto) Eos # (Auto) Baso # (Auto) Abs Immat Gran (auto) Imm/Tot Granulo (auto) Diff Slide Review VBG pH VBG pCO2 VBG pO2 VBG HCO3 Sodium Potassium Chloride Carbon Dioxide Anion Gap BUN Creatinine Estimated Creat Clear Estimated GFR Glucose Calcium Magnesium 2.5 Total Bilirubin AST ALT Alkaline Phosphatase Troponin I 0.04 NT-Pro-B Natriuret Pep 2070 Total Protein Albumin TSH 1.110 Urine L. pneumophilia Ag L. pneumo Negative Urine Strep pneumoniae Ag S. pneumo Negative SARS-CoV-2 (PCR) Cancelled Influenza Type A (PCR) Cancelled Influenza Type B (PCR) Cancelled RSV (PCR) Cancelled Lab Acknowledgement Test Added 02/15/23 07:38 WBC 93.29 H* RBC 4.14 L Hgb 13.0 L Hct 43.1 MCV 104 H MCH 31 MCHC 30 L RDW Coeff of Csa[place] 17.2 H Plt Count 331 Neut % (Auto) 16.6 L Lymph % (Auto) 79.9 H [place] % (Auto) 3.3 Eos % (Auto) 0.0 Baso % (Auto) 0.0 Neut # (Auto) 15.50 H Lymph # (Auto) 74.50 H [place] # (Auto) 3.10 H Eos # (Auto) 0.00 Baso # (Auto) 0.00 Abs Immat Gran (auto) 0.20 Imm/Tot Granulo (auto) 0.2 Diff Slide Review Acceptable Review VBG pH 7.515 H VBG pCO2 41 VBG pO2 67.4 H VBG HCO3 33 H Sodium 148 Potassium 3.0 L Chloride 110 Carbon Dioxide 32 Anion Gap 6 L BUN 62 H Creatinine 0.9 Estimated Creat Clear 73.54 Estimated GFR 87 Glucose 147 H Calcium 10.2 Magnesium Total Bilirubin 1.2 AST 60 H ALT 58 H Alkaline Phosphatase 124 Troponin I 0.06 H* NT-Pro-B Natriuret Pep Total Protein 7.0 Albumin 3.7 TSH Urine L. pneumophilia Ag Urine Strep pneumoniae Ag SARS-CoV-2 (PCR) Influenza Type A (PCR) Influenza Type B (PCR) RSV (PCR) Lab Acknowledgement
[2023-02-15] MEDS: fentaNYL 12 mcg/hr PATCH 1 PATCH TRANSDERMA (14:01)
--- NOTE | 2023-02-15 15:57 | PC.NURSE ---
After extensive communication with family members with Dr. Lraa, sig other, patient and primary RN this morning a decision was made to place pt on comfort cares, right side of body remains weak & pt's words are confused/incomprehensible. Tele removed. Last dose of IV Zosyn infused. HiFlow oxygen discontinued. Please see eMar for medications provided to pt for elevated temp, restlessness. Fentanyl patch 12 mcg applied this afternoon to left shoulder. Family vigilant and supportive at bedside. Pt has been sleeping and is less responsive, however urine output prior to shift flowers 450cc of clear yellow urine from gee catheter. Hourly checks and offer of repositioning. Inflatable mattress remains under pt for easier position changes by staff. Teaching on signs of approaching discussed with family. ( skin color changes, mottling, skin cool to touch, shallow or apneic breathing, decreased responsiveness) Pt remains NPO d/to aspiration risk. Oral swabs and moisturizer to lips. Report to Valeria Thomas RN for evening shift.
[2023-02-15] MEDS: MORPHINE 10 MG/0.5 ML ORAL SOLN PO ×2 (17:50→20:02)
--- NOTE | 2023-02-15 19:50 | PC.NURSE ---
End of shift-- Pleasant patient. No VS completed per comfort care protocol. Minimally verbal with garbled, rambling, incoherent speech. Pt appeared somewhat restless this afternoon with facial grimacing noted and pt was given IV Morphine PRN. Attempted to reposition patient and pt cried out in pain and was given PO Morphine and additional IV Morphine. LS coarse with rhonchi. Occasional moist cough noted. Numerous family members at bedside and appear loving and supportive. Report to DEMETRIO Christine.
[2023-02-15] MEDS: LORazepam 2 MG/ML inj IVP (21:02)
[2023-02-15] MEDS: MORPHINE 2 MG/ML inj 4 MG IVP (22:33)
[2023-02-16] MEDS: MORPHINE 10 MG/0.5 ML ORAL SOLN PO ×6 (01:15→08:10)
[2023-02-16] MEDS: SODIUM CHLORIDE 0.9 % (FLUSH) 10 ML SYRINGE 5 ML IVF ×2 (02:14→09:49)
[2023-02-16] MEDS: LORazepam 2 MG/ML inj IVP ×7 (02:14→12:59)
--- NOTE | 2023-02-16 05:39 | PC.NURSE ---
END OF SHIFT NOTE: PT WITH MINIMAL RESPONSE. OPENS EYES SPORADICALLY. REPOSITIONED WITH PILLOWS FOR PT'S COMFORT AND PRESSURE ULCER PREVENTION. USED ORAL SWABS TO WET PT'S DRY MOUTH. LIP MOISTURE APPLIED TO DRY LIPS. ROBLERO PATENT AND DRAINING JOSH COLORED URINE. COMFORT CARES PROVIDED PT CONTINUES TO TRANSITION TO END OF LIFE. NAYA-SONI BREATHING WITH INCREASING APNEIC PERIODS.
[2023-02-16] MEDS: MORPHINE 20 MG/ML **CONCENTRATE** ORAL PO ×4 (08:47→10:19)
[2023-02-16] MEDS: fentaNYL 50 MCG/HR PATCH 1 PATCH TRANSDERMA (08:53)
[2023-02-16] MEDS: MORPHINE 2 MG/ML inj IVP ×2 (10:33→11:17)
[2023-02-16] MEDS: MORPHINE 4 MG/ML INJ IVP ×3 (12:09→13:28)
--- NOTE | 2023-02-16 14:02 | PC.NURSE ---
Patient . Listened for heart beat for 1 minute. No heart beat hurt on auscultation. Notified Dr. Barber of .
--- NOTE | 2023-02-16 14:48 | PC.NURSE ---
[facility] contacted. Spoke with Jessica. She asked that I give one of his children her contact information to call her once they leave the facility. This information and phone number was provided to patients son, Patrice. .
--- NOTE | 2023-02-16 15:20 | PC.NURSE ---
shift note: morphine and ativan given frequently to assist with comfort. family at bedside. pt @ 1402 with Linnette ATKINSON confirming. IV x2 removed intact lt ac and hand. Jin removed intact. Duragesic patch removed and wasted with Linnette ATKINSON
--- NOTE | 2023-02-16 15:25 | PM.DN ---
Pronouncement Note Date and Time of Date of : 02/16/23 Time of : 14:05 PCOD Preliminary cause of : Stroke of unknown etiology Contributing Factors (1) Acute hypoxic respiratory failure: Contributing factors: Stroke presumed. Aspiration followed. Hypoxia and desire for comfort cares pursued. (2) Aspiration pneumonia: Contributing factors: CT CHEST on admission: Right greater than left basilar consolidation with peribronchial thickening and mucous plugging. Constellation of findings are concerning for aspiration pneumonitis with postobstructive pneumonia. Additional fluid in the esophagus which is a contributing factor. (3) Multiple organ system failure: (4) Status post-operative repair of closed hip fracture: Contributing factors: Nov. (5) Diabetes mellitus: (6) Heart failure with reduced ejection fraction: (7) CLL (chronic lymphocytic leukemia): (8) Paroxysmal atrial fibrillation: (9) Stage 3 chronic kidney disease: Summary Additional details: Leonardo was admitted on 02/14/2023. He had become acutely weak, febrile and had right-sided weakness over the course of 1-2 days prior to admission. Leonardo had been very clear about his health care goals and wanted to be comfortable and preferred not to be in the hospital. In fact he had checked himself out of rehab after his femur fracture just before . He had had an ORIF it in November. He just wanted to be at home with his family for . He continued to become weak after the holidays and then acutely worse 1-2 days prior to admission. We suspect that he had an aspiration pneumonia shortly after suffering a stroke. His CT of his head showed only age-related changes. No obvious bleed. However we think he also aspirated shortly after his stroke and this led to an hypoxic respiratory failure. He was started on antibiotics, however his family knew his wishes. Thus we started on comfort cares on 02/15/2023. He peacefully with his family at his bedside on the afternoon of 02/06/2023. Additional Data Confirmation of : no pulse Family: at bedside Attending physician: [facility] Time Seen by Provider: 14:15 Date Seen: 02/16/23 Was code activated?: No Autopsy requested?: No driver license examiner notified?: Yes Organ bank notified?: Yes Advance directives: Yes
== END 2023-02-16 14:30 | disposition expired | DRG 64 ==
LOC: ED 14:58 → MEDSURG 15:27
PROVIDERS: Admitting Provider Family Medicine; Emergency Provider Emergency Medicine Emergency Medical Services; PCP Internal Medicine; Visit Provider Family Medicine
DX: I63.9 Cerebral infarction, unspecified (principal); J69.0 Pneumonitis due to inhalation of food and vomit; J96.01 Acute respiratory failure with hypoxia; R65.11 Systemic inflammatory response syndrome (SIRS) of non-infectious origin with acute organ dysfunction; G81.91 Hemiplegia, unspecified affecting right dominant side; C91.10 Chronic lymphocytic leukemia of B-cell type not having achieved remission; I13.0 Hypertensive heart and chronic kidney disease with heart failure and stage 1 through stage 4 chronic kidney disease, or unspecified chronic kidney disease; I50.22 Chronic systolic (congestive) heart failure; J84.9 Interstitial pulmonary disease, unspecified; Z79.01 Long term (current) use of anticoagulants; F03.90 Unspecified dementia, unspecified severity, without behavioral disturbance, psychotic disturbance, mood disturbance, and anxiety; N18.30 Chronic kidney disease, stage 3 unspecified; E11.22 Type 2 diabetes mellitus with diabetic chronic kidney disease; R13.10 Dysphagia, unspecified; R48.2 Apraxia; R47.9 Unspecified speech disturbances; G47.33 Obstructive sleep apnea (adult) (pediatric); Z86.711 Personal history of pulmonary embolism; G89.29 Other chronic pain; I48.0 Paroxysmal atrial fibrillation; I27.20 Pulmonary hypertension, unspecified; G62.9 Polyneuropathy, unspecified; I89.0 Lymphedema, not elsewhere classified; F41.9 Anxiety disorder, unspecified; E66.9 Obesity, unspecified; R79.89 Other specified abnormal findings of blood chemistry; I71.40 Abdominal aortic aneurysm, without rupture, unspecified; S72.141D Displaced intertrochanteric fracture of right femur, subsequent encounter for closed fracture with routine healing; Z95.0 Presence of cardiac pacemaker; F17.210 Nicotine dependence, cigarettes, uncomplicated
CPT/HCPCS: 36415; 70450; 71045; 71275; 73080; 73552; 80048; 80053; 81001; 82803; 83605; 83735; 83880; 84443; 84484; 85025; 87040; 87081; 87086; 87186; 87449; 87631; 87899; 93005; 94761; 99285; A9270; J0456; J2060; J2270; J2543; J3370; J3480; J7030; J7050; J7120; Q9967